=== PATIENT | female | born 2000 | race Hispanic/Latino ===

== ENCOUNTER 2021-12-02 09:18 | Emergency (ER) | payer OTHER ==
--- OUTSIDE RECORDS SUMMARY | 2021-12-02 09:20 | XMS REPORT | Continuity of Care Document ---
:2000 Author Organization [facility] t Address [address] [place] [address] Care Team Providers Name Role Phone Erin JAMES Primary Care Physician Unavailable Erin Oliveros Attending Clinician Erin JAMES Attending Clinician Unavailable Payers Payer Name Policy Type Policy Number Effective Date Expiration Date S ource Problems Condition Condition Condition Status Onset Resolution Last Treating Co mments Source Name Details Category Date Date Treatment Clinician Date Encounter Encounter Disease Active Uni vers for other for other 4-11 ity of general general 00:00: [place] counseling counseling 00 Me dical or advice or advice Bran ch on on contracept contracept ion ion Obesity Obesity Disease Active Univers (BMI (BMI 2-26 ity of 30-39.9) 30-39.9) 00:00: [place] 00 [facility] Vacuum-ass Vacuum-ass Disease Active U nivers isted isted 2-25 ity of vaginal vaginal 00:00: [place] delivery delivery 00 [facility] Normal Normal Disease Active Univers labor labor 2-24 ity of 00:00: [place] 00 [facility] COVID-19 COVID-19 Disease Active Unive rs virus IgG virus IgG 2-23 ity of antibody antibody 00:00: [place] [facility] BMI BMI Disease Active 2020-06 Univers 25.0-25.9, 25.0-25.9, 2-20 it y of adult adult 00:00: [place] 00 [facility] Rubella Rubella Disease Active Overview: Univ ers non-immune non-immune 12-17 Formattin ity of status, status, 00:00: g of this [place] antepartum antepartum 00 note Me dical might be Branch different from the original. Address in PP. Supervisio Supervisio Disease Active U nivers n of high n of high 12-16 ity of risk risk 00:00: [place] 00 Medi mario in third in third Branch trimester trimester Primigravi Primigravi Disease Active U nivers da in da in 12-16 ity of third third 00:00: [place] trimester trimester 00 [facility] Branch Depression Depression Disease Active U nivers , , 12-16 ity of unspecifie [place]specifie [place] depression depression Br anch type type Teen Teen Disease Active Univers emotional emotional 1 ity of problem problem 00:00: [address] Scabies Scabies Disease Active Univers 4-25 ity of 00:00: [address] Allergies, Adverse Reactions, Alerts Allergy Allergy Status Severity Reaction(s) Onset Inactive Treating Comm ents Source Name Type Date Date Clinician NO KNOWN Drug Active Univers ALLERGIE Class ity of S [facility] Social History Social Habit Start Date Stop Date Quantity Comments Source Exposure to Not sure [facility] SARS-CoV-2 [facility] (event) Outlook Alcohol intake 2021-09-15 2021-09-15 Current University of 00:00:00 00:00:00 non-drinker of [facility] [place] alcohol Branch (finding) Tobacco use and 2012-09-20 2012-09-20 Never used Universit y of exposure 00:00:00 00:00:00 [facility] Tobacco Comment 2012-09-20 2012-09-20 Denies smoking Unive rsity of 00:00:00 00:00:00 exposure [facility] Sex Assigned At [birth year] Universit y of 00:00:00 00:00:00 [facility] Smoking Status Start Date Stop Date Source Never smoker [facility] Medications Ordered Filled Start Stop Current Ordering Indication Dosage Frequency Signature Comments Components Source Medication Medication Date Date Medication? Clinician (SIG) Name Name ferrous Yes [id number] 325mg Take 1 Uni vers sulfate 325 2-27 tablet by ity of mg (65 mg 00:00: mouth 2 [place] iron) 00 (two) Medical tablet times Branch daily. ibuprofen Yes [id number] 600mg Take 1 U nivers 600 mg 2-27 tablet by ity of tablet 00:00: mouth [place] 00 every 6 Medical (six) Branch hours as needed (Pain). Take with food or milk. 2021- No [id number] 1{tbl} Take 1 Univers vitamin 2-27 -11 tablet by ity of w/FA tablet 00:00[place] daily. Medical Branch docusate 2021- No [id number] 240mg Take 1 U nivers calcium 240 2-27 -11 capsule by i ty of mg capsule 00:00: 00:00 mouth once [place] 00 :00 daily as Medical needed for Branch Constipati on. Immunizations Ordered Immunization Filled Immunization Date Status Commen ts Source Name Name [facility] 2021-05-12 Completed University of 00:00:00 [facility] TDAP 2013-10-16 Completed University of 00:00:00 [facility] Meningococcal 2013-10-16 Completed University of Polysaccharide 00:00:00 [facility] mario (groups A, C, Y and Branc h W-135) conjugate vaccine (MCV4P) Varicella 2013-10-16 Completed University of (varivax)(chicken 00:00:00 [place] M edical pox) Outlook HEPATITIS A 2005-08-04 Completed University of 00:00:00 [facility] HEPATITIS A 2005-01-15 Completed University of 00:00:00 [facility] DTAP 2004-11-04 Completed University of 00:00:00 [facility] Polio (IPV/OPV) 2004-11-04 Completed Universit y of 00:00:00 [facility] MMR 2004-11-04 Completed University of 00:00:00 [facility] Pneumococcal 7 2002-09-04 Completed University of Conjugate, PCV7 00:00:00 [place] Med ical (Prevnar7) Branch DTAP 2001-12-29 Completed University of 00:00:00 [facility] Hep B, Adol or Pedi 2001-12-29 Completed Unive rsity of Dosage 00:00:00 [facility] HIB 4 Dose Schedule 2001-10-13 Completed Unive rsity of 00:00:00 [facility] MMR 2001-10-13 Completed University of 00:00:00 [facility] Polio (IPV/OPV) 2001-10-13 Completed Universit y of 00:00:00 [facility] Varicella 2001-10-13 Completed University of (varivax)(chicken 00:00:00 [facility] edical pox) Branch DTAP 2001-06-01 Completed University of 00:00:00 [facility] HIB 4 Dose Schedule 2001-06-01 Completed Unive rsity of 00:00:00 [facility] Hep B, Adol or Pedi 2001-06-01 Completed Unive rsity of Dosage 00:00:00 [facility] Pneumococcal 7 2001-06-01 Completed University of Conjugate, PCV7 00:00:00 [facility] ical (Prevnar7) Branch DTAP 2001-03-01 Completed University of 00:00:00 [facility] HIB 4 Dose Schedule 2001-03-01 Completed Unive rsity of 00:00:00 [facility] Pneumococcal 7 2001-03-01 Completed University of Conjugate, PCV7 00:00:00 [place] Med ical (Prevnar7) Branch Polio (IPV/OPV) 2001-03-01 Completed Universit y of 00:00:00 [facility] DTAP 2000 Completed University of 00:00:00 [facility] HIB 4 Dose Schedule 2000 Completed Unive rsity of 00:00:00 [facility] Pneumococcal 7 2000 Completed University of Conjugate, PCV7 00:00:00 [facility] ical (Prevnar7) Branch Polio (IPV/OPV) 2000 Completed Universit y of 00:00:00 [facility] Hep B, Adol or Pedi 2000 Completed Unive rsity of Dosage 00:00:00 [facility] Vital Signs Vital Name Observation Time Observation Value Comments Source Systolic blood 2021-09-15 18:19:00 115 mm[Hg] Univer sity of pressure [facility] Diastolic blood 2021-09-15 18:19:00 73 mm[Hg] Unive rsity of pressure [facility] Heart rate 2021-09-15 18:19:00 70 /min Universi ty of [facility] Body temperature 2021-09-15 18:19:00 35.89 [facility] Respiratory rate 2021-09-15 18:19:00 16 /min [facility] Body height 2021-09-15 18:19:00 162.6 cm [facility] Body weight 2021-09-15 18:19:00 66.543 kg [facility] BMI 2021-09-15 18:19:00 25.18 kg/m2 [facility] Procedures This patient has no known procedures. Encounters Start End Encounter Admission Attending Care Care Encounter Source Date/Time Date/Time Type Type Clinicians Facility Department ID 2021-09-15 2021-09-15 Office ROMAN James [id number] Univers 13:00:00 13:57:48 Visit Vicky Khan BRAN MIXER [id number] ity [facility] [id number] Stewart as MATERNAL [id number] Med ical & CHILD [address] [place] [address] 2021-09-15 2021-09-15 Outpatient R ROMAN JAMES [facility] [id number] Univers 13:00:00 13:57:48 VICKY staton o f [facility] Results This patient has no known results.
[2021-12-02] MEDS ORDERED: LEVALBUTEROL 1.25 MG/3 ML NEB ONE ×2 (10:09→13:18)
[2021-12-02] MEDS ORDERED: HYDROCODONE/CHLORPHEN 5 ML/OSYR ONE (10:09)
[2021-12-02] MEDS ORDERED: NA CHLORIDE 0.9% 1,000 ML ONE (10:09)
[2021-12-02] MEDS ORDERED: IBUPROFEN 400 MG TAB ONE (10:31)
--- NOTE | 2021-12-02 11:11 | RAD REPORT ---
EXAM DESCRIPTION: RAD - Chest Pa And Lat (2 Views) - 12/02/2021 10:53 am CLINICAL HISTORY: COUGH COMPARISON: None TECHNIQUE: Frontal and lateral views of the chest were obtained. FINDINGS: The lungs are underinflated. No consolidations seen. Stranding in the lung bases noted. Ba seline for the patient is unknown. Minimal interstitial lung base infiltrate cannot be excluded. Hilar regions within normal limits. Heart size is normal and central vasculature is within normal l imits. No pleural effusion or pneumothorax seen. No acute bony finding noted. No aortic abnormalit y. IMPRESSION: Baseline study showing prominent interstitial stranding in each base, more so to the rig ht. In the absence of comparison, interstitial infiltrate cannot be excluded. No focal consolidation.
[2021-12-02] MEDS ORDERED: CEFTRIAXONE 1000 MG/VIAL ONE (13:17)
[2021-12-02] MEDS ORDERED: dexAMETHasone 10 MG/ML VIAL ONE (13:17)
--- NOTE | 2021-12-02 14:17 | EDPHYS ---
Physician Documentation [facility] Name: Deisy Jimenez Age: 21 yrs Sex: Female : 2000 Arrival Date: 12/02/2021 Time: 09:21 Bed 23 Private MD: ED Physician Santos Fay HPI: 12/02 09:56 This 21 yrs old Female presents to ER via Ambulatory with complaints of Cough. pm1 09:56 The patient or guardian reports cough. pm1 09:56 Onset: The symptoms/episode began/occurred 5 day(s) ago. Severity of symptoms: in the pm1 emergency department the symptoms are actually worse. Modifying factors: The symptoms are alleviated by nothing, the symptoms are aggravated by nothing. Associated signs and symptoms: Pertinent positives: dizziness, headache, shortness of breath, and wheezing. The patient has not experienced similar symptoms in the past. The patient has not recently seen a physician. Patient's son at home with the same symptoms. 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 - Social history:: Smoking status: Patient denies any tobacco usage or history of. ROS: 09:56 Eyes: Negative for injury, pain, redness, and discharge. pm1 09:56 Cardiovascular: Negative for chest pain, palpitations, and edema. 09:56 Abdomen/GI: Negative for abdominal pain, nausea, vomiting, diarrhea, and constipation, Back: Negative for injury and pain, MS/Extremity: Negative for injury and deformity, Skin: Negative for injury, rash, and discoloration. 09:56 Constitutional: Positive for body aches, fever, Negative for poor PO intake. 09:56 ENT: Positive for rhinorrhea, Negative for ear pain. 09:56 Respiratory: Positive for cough, shortness of breath, wheezing. 09:56 Neuro: Positive for dizziness, headache, Negative for numbness, tingling, weakness. 09:56 All other systems are negative. Exam: 09:56 Constitutional: This is a well developed, well nourished patient who is awake, alert, pm1 and in no acute distress. Head/Face: Normocephalic, atraumatic. 09:56 Back: No spinal tenderness. No costovertebral tenderness. Full range of motion. Skin: Warm, dry with normal turgor. Normal color with no rashes, no lesions, and no evidence of cellulitis. MS/ Extremity: Pulses equal, no cyanosis. Neurovascular intact. Full, normal range of motion. 09:56 Eyes: Exam is negative for acute changes, Extraocular movements: no acute changes, Conjunctiva: no acute changes. 09:56 ENT: Exam is negative for acute changes, Mouth: no acute changes, Lips: normal, moist, Oral mucosa: normal, pink and intact, moist. 09:56 Cardiovascular: Exam negative for acute changes, Rate: tachycardic, Rhythm: regular, Pulses: no pulse deficits are appreciated, Heart sounds: normal. 09:56 Respiratory: the patient does not display signs of respiratory distress, Respirations: normal, Breath sounds: wheezing: that is mild, is heard in the right posterior upper lobe. 09:56 Abdomen/GI: Exam negative for acute changes, Inspection: abdomen appears normal, Palpation: abdomen is soft and non-tender, in all quadrants. 09:56 Neuro: Exam negative for acute changes, Orientation: is normal, Mentation: is normal, Motor: is normal, moves all fours. Vital Signs: 09:30 BP 122 / 78; Pulse 134; Resp 17; Temp 99.3(O); Pulse Ox 95% on R/A; Height 5 ft. 4 in. ss (162.56 cm); Pain 8/10; 10:30 Temp 102.2(O); jl7 10:48 BP 132 / 79; Pulse 119; Resp 19; Pulse Ox 94% ; jl7 12:00 BP 122 / 61; Pulse 111; Resp 15; Pulse Ox 95% ; jl7 13:18 BP 112 / 63; Pulse 104; Resp 15; Temp 99.1(O); Pulse Ox 94% ; jl7 14:30 BP 106 / 65; Pulse 108; Resp 15; Pulse Ox 100% ; jl7 MDM: 09:41 Patient medically screened. pm1 13:04 Data reviewed: vital signs. Data interpreted: Pulse oximetry: on room air is 95 %. pm1 Interpretation: normal. Counseling: I had a detailed discussion with the patient and/or guardian regarding: the historical points, exam findings, and any diagnostic results supporting the discharge/admit diagnosis, lab results, radiology results, the need for outpatient follow up, to return to the emergency department if symptoms worsen or persist or if there are any questions or concerns that arise at home. 12/02 09:56 Order name: Flu; Complete Time: 10:59 pm1 12/02 09:56 Order name: COVID-19 SARS RT PCR (Document "Date of Onset" if Symptomatic); Complete pm1 Time: 13:05 12/02 09:56 Order name: Strep; Complete Time: 10:59 pm1 12/02 09:56 Order name: Chest Pa And Lat (2 Views) XRAY; Complete Time: 11:18 pm1 12/02 10:51 Order name: Throat Culture EDMS 12/02 09:56 Order name: IV Saline Lock; Complete Time: 10:48 pm1 12/02 09:56 Order name: Urine Test (obtain specimen); Complete Time: 10:48 pm1 Administered Medications: 10:10 Drug: Tussionex Pennkinetic ER (chlorpheniramine-hydrocodone) Suspension 5 ml Route: PO;jl7 13:18 Follow up: Response: No adverse reaction jl7 10:15 Drug: NS 0.9% 1000 ml Route: IV; Rate: 1000 ml; Site: right forearm; jl7 10:20 Drug: Xopenex (levalbuterol) 1.25 mg Route: Inhalation; jl7 13:18 Follow up: Response: No adverse reaction jl7 10:30 Drug: Ibuprofen 800 mg Route: PO; jl7 13:18 Follow up: Response: No adverse reaction; Temperature is decreased jl7 13:17 Drug: Xopenex (levalbuterol) 1.25 mg Route: Inhalation; jl7 13:18 Drug: Rocephin (cefTRIAXone) 1 grams Route: IV; Rate: calculated rate; Site: right jl7 forearm; 13:18 Drug: Decadron - Dexamethasone 10 mg Route: IVP; Site: right forearm; jl7 Disposition: 18:02 Co-signature as Attending Physician, Santos Fay MD. rn Disposition Summary: 12/02/21 14:16 Discharge Ordered Location: Home pm1 Problem: new pm1 Symptoms: have improved pm1 Condition: Stable pm1 Diagnosis - Cough pm1 Followup: pm1 - With: Emergency Department - When: As needed - Reason: Worsening of condition Followup: pm1 - With: Private Physician - When: 2 - 3 days - Reason: Recheck today's complaints, Continuance of care, Re-evaluation by your physician Discharge Instructions: - Discharge Summary Sheet pm1 - Cough, Adult pm1 Forms: - Medication Reconciliation Form pm1 - Thank You Letter pm1 - Antibiotic Education pm1 - Prescription Opioid Use pm1 Prescriptions: - Ventolin HFA 90 mcg/actuation Inhalation HFA aerosol inhaler - inhale 2 puff by INHALATION route every 6 hours As needed; 1 Inhaler; Refills: pm1 0, Product Selection Permitted - Zithromax Z-Chente 250 mg Oral Tablet - take 1 tablet by ORAL route as directed for 5 days Day 1 - take two (2) tablets pm1 one time. Day 2, 3, 4 , 5 take one (1) tablet once daily.; 6 tablet; Refills: 0, Product Selection Permitted - Medrol (Chente) 4 mg Oral Tablets, Dose Pack - take 1 tablet by ORAL route as directed - follow package instructions; 1 pm1 packet; Refills: 0, Product Selection Permitted - Guaifenesin AC 10-100 mg/5 mL Oral Liquid - take 10 milliliters by ORAL route every 4 hours As needed; 240 milliliter; pm1 Refills: 0, Product Selection Permitted Signatures: Dispatcher [employer] Santos Omalley MD MD rn Smirch, Shelby, RN RN ss Marinas, Patrick, NP LICENSE REGISTRATION EXAMINER pm1 Jaimie Banks RN RN jl7
--- NOTE | 2021-12-02 14:17 | ER ---
Nurse's Notes [facility] Name: Deisy Jimenez Age: 21 yrs Sex: Female : 2000 Arrival Date: 12/02/2021 Time: 09:21 Bed 23 Private MD: Diagnosis: Cough Presentation: 12/02 09:30 Chief complaint: Patient states: cough, sore throat, shortness of breath and ss intermittent dizziness that began 5 days ago. Pt states that her son has the same symptoms. Coronavirus screen: Client denies travel out of the [place] in the last 14 days. Ebola Screen: Patient denies exposure to infectious person. Patient denies travel to an Ebola-affected area in the 21 days before illness onset. Initial Sepsis Screen: Does the patient meet any 2 criteria? No. Patient's initial sepsis screen is negative. Does the patient have a suspected source of infection? No. Patient's initial sepsis screen is negative. Risk Assessment: Do you want to hurt yourself or someone else? Patient reports no desire to harm self or others. Onset of symptoms was November 27, 2021. 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 - Social history:: Smoking status: Patient denies any tobacco usage or history of. Screenin:00 Abuse screen: Denies threats or abuse. Denies injuries from another. Nutritional jl7 screening: No deficits noted. Tuberculosis screening: No symptoms or risk factors identified. Fall Risk IV access (20 points). Total Sesay Fall Scale indicates No Risk (0-24 pts). Assessment: 10:00 General: Appears in no apparent distress. uncomfortable, Behavior is calm, cooperative, jl7 appropriate for age. Pain: Complains of pain in sore throat Pain currently is 8 out of 10 on a pain scale. Neuro: Level of Consciousness is awake, alert, obeys commands, Oriented to person, place, time, situation. Cardiovascular: Patient's skin is warm and dry. Respiratory: Airway is patent Respiratory effort is even, unlabored, Respiratory pattern is regular, symmetrical. EENT: Throat is clear. Derm: Skin is pink, warm \T\ dry. 11:00 Reassessment: Patient appears in no apparent distress at this time. No changes from jl7 previously documented assessment. Patient and/or family updated on plan of care and expected duration. Pain level reassessed. Patient is alert, oriented x 3, equal unlabored respirations, skin warm/dry/pink. 12:00 Reassessment: Patient appears in no apparent distress at this time. No changes from jl7 previously documented assessment. Patient and/or family updated on plan of care and expected duration. Pain level reassessed. Patient is alert, oriented x 3, equal unlabored respirations, skin warm/dry/pink. 13:00 Reassessment: Patient appears in no apparent distress at this time. Patient and/or jl7 family updated on plan of care and expected duration. Pain level reassessed. Patient is alert, oriented x 3, equal unlabored respirations, skin warm/dry/pink. Patient states symptoms have improved. 14:00 Reassessment: Patient appears in no apparent distress at this time. No changes from jl7 previously documented assessment. Patient and/or family updated on plan of care and expected duration. Pain level reassessed. Patient is alert, oriented x 3, equal unlabored respirations, skin warm/dry/pink. Vital Signs: 09:30 BP 122 / 78; Pulse 134; Resp 17; Temp 99.3(O); Pulse Ox 95% on R/A; Height 5 ft. 4 in. ss (162.56 cm); Pain 8/10; 10:30 Temp 102.2(O); jl7 10:48 BP 132 / 79; Pulse 119; Resp 19; Pulse Ox 94% ; jl7 12:00 BP 122 / 61; Pulse 111; Resp 15; Pulse Ox 95% ; jl7 13:18 BP 112 / 63; Pulse 104; Resp 15; Temp 99.1(O); Pulse Ox 94% ; jl7 14:30 BP 106 / 65; Pulse 108; Resp 15; Pulse Ox 100% ; jl7 ED Course: 09:21 Patient arrived in ED. rg4 09:32 Triage completed. ss 09:32 Arm band placed on right wrist. ss 09:41 Kenneth Rivera, JESSICA is PHCP. pm1 09:41 Santos Fay MD is Attending Physician. pm1 09:58 Jaimie Banks, TEGAN is Primary Nurse. jl7 10:00 Patient has correct armband on for positive identification. Placed in gown. Bed in low jl7 position. Call light in reach. Side rails up X 1. Pulse ox on. NIBP on. Warm blanket given. 10:00 Inserted saline lock: 20 gauge in right forearm, using aseptic technique. jl7 10:52 Chest Pa And Lat (2 Views) XRAY In Process Unspecified. EDMS 14:58 No provider procedures requiring assistance completed. IV discontinued, intact, jl7 bleeding controlled, No redness/swelling at site. Pressure dressing applied. Administered Medications: 10:10 Drug: Tussionex Pennkinetic ER (chlorpheniramine-hydrocodone) Suspension 5 ml Route: PO;jl7 13:18 Follow up: Response: No adverse reaction jl7 10:15 Drug: NS 0.9% 1000 ml Route: IV; Rate: 1000 ml; Site: right forearm; jl7 10:20 Drug: Xopenex (levalbuterol) 1.25 mg Route: Inhalation; jl7 13:18 Follow up: Response: No adverse reaction jl7 10:30 Drug: Ibuprofen 800 mg Route: PO; jl7 13:18 Follow up: Response: No adverse reaction; Temperature is decreased jl7 13:17 Drug: Xopenex (levalbuterol) 1.25 mg Route: Inhalation; jl7 13:18 Drug: Rocephin (cefTRIAXone) 1 grams Route: IV; Rate: calculated rate; Site: right jl7 forearm; 13:18 Drug: Decadron - Dexamethasone 10 mg Route: IVP; Site: right forearm; jl7 Medication: 14:30 VIS not applicable for this client. jl7 Outcome: 14:16 Discharge ordered by . pm1 14:58 Discharged to home ambulatory. jl7 14:58 Condition: stable 14:58 Discharge instructions given to patient, Instructed on discharge instructions, follow up and referral plans. medication usage, Demonstrated understanding of instructions, follow-up care, medications, Prescriptions given X 4. 14:59 Patient left the ED. jl7 Signatures: Dispatcher [employer] EDMS Virginia Harrisonby, RN RN ss Kenneth Rivera, ASSISTANT COUNSEL ASSISTANT COUNSEL pm1 Nola Messer rg4 Jaimie Banks RN RN jl7 Corrections: (The following items were deleted from the chart) 13:18 13:18 Decadron - Dexamethasone 10 mg IVP in right antecubital jl7 jl7
[2021-12-02 15:39] VITALS: TEMP 99.1
[2021-12-02 15:46] VITALS: BP 106/65; O2SAT 100
== END 2021-12-02 14:59 | disposition home or self-care (01) ==
LOC: ER 09:18
DX: R05.9 Cough, unspecified (principal); Z20.822 Contact with and (suspected) exposure to COVID-19
CPT/HCPCS: 87070; 87081; 87804 ×2; 71046; U0003; J1100; J7030

== ENCOUNTER 2022-05-24 12:02 | Emergency (ER) | payer OTHER ==
--- OUTSIDE RECORDS SUMMARY | 2022-05-24 12:06 | XMS REPORT | Continuity of Care Document ---
:2000 Author Organization [facility] t Address [address] [place] [address] Care Team Providers Name Role Phone VICKY ANAND Primary Care Physician Unavailable VICKY ANAND Attending Clinician Unavailable Vicky Oliveros Attending Clinician Moustapha Engle MD Attending Clinician Hossein Jean Baptiste MD Attending Clinician Estephania Teran MD, Leonard Attending Clinician ESPERANZA APPIAH Attending Clinician Unavailable Esperanza Appiah MD Attending Clinician JAMIE CONTE Attending Clinician Unavailable Provider, Roroleonidas Temp Attending Clinician Unavailable Inés Jamie SLOAN Attending Clinician [phone] Ultrasound, Huong Mfm Attending Clinician Unavailable Tami Gee MD Attending Clinician [phone] TAMI GEE Attending Clinician Unavailable Ultrasound, AngRickey Attending Clinician Unavailable Doctor Unassigned, [place] Attending Clinician Unavailable Moustapha Engle MD Admitting Clinician MOUSTAPHA ENGLE Admitting Clinician Unavailable ESPERANZA APPIAH Admitting Clinician Unavailable Esperanza Appiah MD Admitting Clinician Payers Payer Name Policy Type Policy Number Effective Date Expiration Date Pietro luque [facility] [id number] 2021 CHOICE MEDICAID 00:00:00 [facility] [id number] 2021 HEALTH 00:00:00 MEDICAID PENDING PENDING 2020 00:00:00 MEDICAID [facility] [id number] 2017 00:00:00 Problems Condition Condition Condition Status Onset Resolution Last Treating Co mments Source Name Details Category Date Date Treatment Clinician Date Encounter Encounter Disease Active Uni vers for other for other 4-11 ity of general general 00:00: [place] counseling counseling 00 Me dical or advice or advice Bran ch on on contracept contracept ion ion Obesity Obesity Disease Active Univers (BMI (BMI 2-26 ity of 30-39.9) 30-39.9) 00:00: [place] 00 [facility] Vacuum-ass Vacuum-ass Disease Active U nivers isted isted 2-25 ity of vaginal vaginal 00:00: [place] delivery [facility] Normal Normal Disease Active Univers labor labor 2-24 ity of 00:00: [place] 00 [facility] COVID-19 COVID-19 Disease Active Unive rs virus IgG virus IgG 2-23 ity of antibody antibody 00:00: [place] detected detected 00 [facility] BMI BMI Disease Active 2020-06 Univers 25.0-25.9, 25.0-25.9, 2-20 it y of adult adult 00:00: [place] 00 [facility] Rubella Rubella Disease Active Overview: Univ ers non-immune non-immune 12-17 Formattin ity of status, status, 00:00: g of this [place] antepartum antepartum 00 note Me dical might be Branch different from the original. Address in PP. Supervisio Supervisio Disease Active U nivers n of high n of high 7-12 ity of risk risk 00:00: [place] 00 Medi mario in third in third Branch trimester trimester Primigravi Primigravi Disease Active U nivers da in da in 7-12 ity of third third 00:00: [place] trimester trimester 00 Medi mario Branch Depression Depression Disease Active U nivers , , 7-12 ity of unspecifie unspecifie 00:00: [place] Medical depression depression Br anch type type Teen Teen Disease Active Univers emotional emotional - ity of problem problem 00:00: [address] Scabies Scabies Disease Active Univers 4-25 ity of 00:00: [place] [address] Medical Branch Allergies, Adverse Reactions, Alerts Allergy Allergy Status Severity Reaction(s) Onset Inactive Treating Comm ents Source Name Type Date Date Clinician NO KNOWN Drug Active Univers ALLERGIE Class ity of S [facility] Social History Social Habit Start Date Stop Date Quantity Comments Source Exposure to Not sure [facility]-CoV-2 [facility] (event) Branch Alcohol intake 2021-09-15 2021-09-15 Current University of 00:00:00 00:00:00 non-drinker of [facility] alcohol [place] (finding) Tobacco use and 2012-09-20 2012-09-20 Never used Universit y of exposure 00:00:00 00:00:00 [facility] Tobacco Comment 2012-09-20 2012-09-20 Denies smoking Unive rsity of 00:00:00 00:00:00 exposure [facility] Sex Assigned At 2000 2000 Universit y of 00:00:00 00:00:00 [facility] Smoking Status Start Date Stop Date Source Never smoker [facility] Medications Ordered Filled Start Stop Current Ordering Indication Dosage Frequency Signature Comments Components Source Medication Medication Date Date Medication? Clinician (SIG) Name Name ferrous Yes [id number] 325mg Take 1 Uni vers sulfate 325 2-27 tablet by ity of mg (65 mg 00:00: mouth 2 [place] iron) 00 (two) Medical tablet times Branch daily. ibuprofen Yes [id number] 600mg Take 1 U nivers 600 mg 2-27 tablet by ity of tablet 00:00: mouth [place] 00 every 6 Medical (six) Branch hours as needed (Pain). Take with food or milk. 2021- No [id number] 1{tbl} Take 1 Univers vitamin 2-27 04-11 tablet by ity of w/FA tablet 00:00: 00:00 [place]00 daily. Medical Branch docusate 2021- No [id number] 240mg Take 1 U nivMC2 calcium 240 2-27 -11 capsule by i ty of mg capsule 00:00: 00:00 mouth once [place] 00 :00 daily as Medical needed for Branch Constipati on. Immunizations Ordered Immunization Filled Immunization Date Status Commen ts Source Name Name [facility] 2021-05-12 Completed University of 00:00:00 [facility] TDAP 2013-10-16 Completed University of 00:00:00 [facility] Meningococcal 2013-10-16 Completed University of Polysaccharide 00:00:00 [facility] mario (groups A, C, Y and Branc h W-135) conjugate vaccine (MCV4P) Varicella 2013-10-16 Completed University of (varivax)(chicken 00:00:00 [place] M edical pox) Branch HEPATITIS A 2005-08-04 Completed University of 00:00:00 [facility] HEPATITIS A 2005-01-15 Completed University of 00:00:00 [facility] DTAP 2004-11-04 Completed University of 00:00:00 [facility] Polio (IPV/OPV) 2004-11-04 Completed Universit y of 00:00:00 [facility] MMR 2004-11-04 Completed University of 00:00:00 [facility] Pneumococcal 7 2002-09-04 Completed University of Conjugate, PCV7 00:00:00 [place] Med ical (Prevnar7) Branch DTAP 2001-12-29 Completed University of 00:00:00 [facility] Hep B, Adol or Pedi 2001-12-29 Completed Unive rsity of Dosage 00:00:00 [facility] HIB 4 Dose Schedule 2001-10-13 Completed Unive rsity of 00:00:00 [facility] MMR 2001-10-13 Completed University of 00:00:00 [facility] Polio (IPV/OPV) 2001-10-13 Completed Universit y of 00:00:00 [facility] Varicella 2001-10-13 Completed University of (varivax)(chicken 00:00:00 [place] M edical pox) Branch DTAP 2001-06-01 Completed University of 00:00:00 [facility] HIB 4 Dose Schedule 2001-06-01 Completed Unive rsity of 00:00:00 [facility] Hep B, Adol or Pedi 2001-06-01 Completed Unive rsity of Dosage 00:00:00 [facility] Pneumococcal 7 2001-06-01 Completed University of Conjugate, PCV7 00:00:00 [place] Med ical (Prevnar7) Branch DTAP 2001-03-01 Completed University of 00:00:00 [facility] HIB 4 Dose Schedule 2001-03-01 Completed Unive rsity of 00:00:00 [facility] Pneumococcal 7 2001-03-01 Completed University of Conjugate, PCV7 00:00:00 [place] Med ical (Prevnar7) Branch Polio (IPV/OPV) 2001-03-01 Completed Universit y of 00:00:00 [facility] DTAP 2000 Completed University of 00:00:00 [facility] HIB 4 Dose Schedule 2000 Completed Unive rsity of 00:00:00 [facility] Pneumococcal 7 2000 Completed University of Conjugate, PCV7 00:00:00 [place] Med ical (Prevnar7) [place] Polio (IPV/OPV) 2000 Completed Universit y of 00:00:00 [facility] Hep B, Adol or Pedi 2000 Completed Unive rsity of Dosage 00:00:00 [facility] Vital Signs Vital Name Observation Time Observation Value Comments Source Systolic blood 2021-09-15 18:19:00 115 mm[Hg] Univer sity of pressure [facility] Diastolic blood 2021-09-15 18:19:00 73 mm[Hg] Unive rsity of pressure [facility] Heart rate 2021-09-15 18:19:00 70 /min [facility] Body temperature 2021-09-15 18:19:00 35.89 [facility] Respiratory rate 2021-09-15 18:19:00 16 /min [facility] Body height 2021-09-15 18:19:00 162.6 cm [facility] Body weight 2021-09-15 18:19:00 66.543 kg [facility] BMI 2021-09-15 18:19:00 25.18 kg/m2 [facility] Procedures This patient has no known procedures. Encounters Start End Encounter Admission Attending Care Care Encounter Source Date/Time Date/Time Type Type Clinicians Facility Department ID 2022-09-15 2022-09-15 Outpatient Erin ANAND [facility] [id number] Univers 13:15:00 13:15:00 VICKY rodriguez [facility] 2021-09-15 2021-09-15 Outpatient Erin ANAND [facility] [id number] Univers 13:00:00 13:57:48 VICKY rodriguez [facility] 2021-09-15 2021-09-15 [facility] 1.2.840.114 [id number] Univers 13:00:00 13:57:48 Visit Vicky Erin PRODUCT MANAGEMENT ANALYST 350.1.13.10 ity of [facility] 4.2.7.2.686 [place] as MATERNAL [id number] Med ical & CHILD [address] [place] [address] 2021-09-15 2021-09-15 Outpatient Erin ANAND [facility] [id number] Univers 13:00:00 13:57:48 VICKY rodriguez [facility] 2021-08-26 2021-08-26 Outpatient Erin ANAND [facility] [id number] Univers 11:00:00 11:00:00 VICKY rodriguez [facility] 2021-08-08 2021-08-08 Outpatient Erin ANAND [facility] [id number] Univers 10:30:00 10:30:00 VICKY rodriguez [facility] 2021-07-31 2021-08-03 [facility] Moustapha Engle [facility] 1.2.840.114 [id number] Univers 19:18:00 17:15:00 Encounter JHON 350.1.13.10 ity of [place] 4.2.7.2.686 [facility] [phone] [address] 2021-08-01 2021-08-01 Anesthesia Hossein Jean Baptiste [facility] 1.2 .840.114 [id number] Univers 08:22:00 18:09:00 Event Fernie Best 350.1.13.10 ity of [place] 4.2.7.2.686 [facility] [id number] [address] 2021-07-30 2021-07-30 [facility]ine [facility] 1.2.840.114 [id number] Univers 09:00:00 09:15:00 Roshunda R PRODUCT MANAGEMENT ANALYST 350.1.13.10 ity of Visit [facility] 4.2.7.2.686 [place] MATERNAL [phone] [facility] ical & CHILD [address] [place] [address] 2021-07-30 2021-07-30 [facility] [id number] Univers 09:00:00 09:00:00 ROSHUNDA ity o f [facility] 2021-07-30 2021-07-30 [facility] MOI [id number] Univers 09:00:00 09:00:00 ROSHUNDA ity o [facility] 2021-07-27 2021-07-27 [facility] [id number] Univers 20:57:00 22:17:00 ESPERANZA stat[place] of [facility] 2021-07-27 2021-07-27 [facility] 1.2.840.114 [id number] Univers 20:57:00 22:17:00 Encounter Esperanza Franco OELRICHS 350.1.13.10 ity [facility] 4.2.7.2.686 [place] [id number] [address] 2021-07-23 2021-07-23 Outpatient R [facility] [id number] Univers 13:30:00 13:30:00 ity of [facility] 2021-07-22 2021-07-22 Outpatient [facility] [id number] Univers 12:45:00 13:23:40 ROSHUNDA ity o [facility] 2021-07-22 2021-07-22 [facility]ine [facility] 1.2.840.114 [id number] Univers 12:45:00 13:23:40 Roshunda R PRODUCT MANAGEMENT ANALYST 350.1.13.10 ity of Visit [facility] 4.2.7.2.686 [place] MATERNAL [id number] [facility] & CHILD [address] [place] [address] 2021-07-22 2021-07-22 Outpatient [facility] [id number] Univers 12:45:00 12:45:00 BANNDA brionna o [facility] 2021-07-15 2021-07-15 Outpatient Erin ANAND [facility] [id number] Univers 13:00:00 13:00:00 BANNDA brionna o [facility] 2021-07-14 2021-07-14 Outpatient Erin ANAND [facility] [id number] Univers 13:15:00 13:15:00 BANNDRayo stat[place] o [facility] 2021-07-09 2021-07-09 Telephone [facility] [id number] Univers 00:00:00 00:00:00 Roshunda R PRODUCT MANAGEMENT ANALYST 350.1.13.10 ity of REGIONAL 4.2.7.2.686 [place] MATERNAL [id number] [facility] & CHILD [address] [place] [address] 2021-07-08 2021-07-08 Outpatient Erin ANAND [facility] [id number] Univers 12:45:00 13:40:40 BANNDA brionna o [facility] 2021-07-08 2021-07-08 Outpatient [facility] [id number] Univers 12:45:00 13:40:40 BANNDA brionna o [facility] 2021-07-08 2021-07-08 [facility]ine [facility] 1.2.840.114 [id number] Univers 12:45:00 13:40:40 Roshunda R PRODUCT MANAGEMENT ANALYST 350.1.13.10 ity of Visit REGIONAL 4.2.7.2.686 [place] MATERNAL [id number] [facility] & CHILD [address] [place] [address] 2021-06-24 2021-06-24 Outpatient [facility] [id number] Univers 15:15:00 16:06:46 ROSHUNDA ity o [facility] 2021-06-24 2021-06-24 [facility]ine [facility] 1.2.840.114 [id number] Univers 15:15:00 16:06:46 Roshunda R PRODUCT MANAGEMENT ANALYST 350.1.13.10 ity of Visit REGIONAL 4.2.7.2.686 [place] MATERNAL [id number] Med ical & CHILD [address] [place] [address] 2021-06-09 2021-06-09 Outpatient Erin ANAND [facility] [id number] Univers 08:15:00 08:41:14 VICKY [place] michael [facility] 2021-05-26 2021-05-26 Outpatient Erin ANAND [facility] [id number] Univers 09:30:00 10:08:32 VICKY [place] o [facility] 2021-05-26 2021-05-26 [facility]ine [facility] 1.2.840.114 [id number] Univers 09:30:00 10:08:32 Vicky Khan PRODUCT MANAGEMENT ANALYST 350.1.13.10 ity of Visit REGIONAL 4.2.7.2.686 [place] MATERNAL [id number] [facility] & CHILD [address] [place] [address] 2021-05-12 2021-05-12 Outpatient [facility] [id number] Univers 09:00:00 09:36:19 JAMIE dorsey [facility] 2021-05-12 2021-05-12 Routine Provider, Cait [facility] 1 .2.840.114 [id number] Univers 08:53:01 09:36:19 Jamie Conte PRODUCT MANAGEMENT ANALYST 350.1.13 .10 ity of Visit REGIONAL 4.2.7.2.686 [place] MATERNAL [id number] [facility] & CHILD [address] [place] [address] 2021-04-16 2021-04-16 Telephone [facility] 1.2.840.114 [id number] Univers 00:00:00 00:00:00 Nellieridariusz Dorsey PRODUCT MANAGEMENT ANALYST 350.1.13.10 ity of REGIONAL 4.2.7.2.686 [place] MATERNAL [id number] [facility] & CHILD [address] [place] [address] 2021-04-14 2021-04-14 Outpatient [facility] [id number] Univers 09:00:00 09:25:37 JAMIE dorsey [facility] 2021-04-14 2021-04-14 Routine Provider, Cait Shankar [facility] 1 .2.840.114 [id number] Univers 08:59:03 09:25:37 Jamie Conte O PRODUCT MANAGEMENT ANALYST 350.1.13 .10 ity of Visit [facility] 4.2.7.2.686 [place] MATERNAL [id number] [facility] & CHILD [address] [place] [address] 2021-04-03 2021-04-03 Train Dispatcher Ultrasound, Adc [facility] 1.2 .840.114 [id number] Univers 13:05:18 14:05:18 Visit Tami Geepalmacecile OELRICHS 350.1 .13.10 ity of [facility] 4.2.7.2.686 [place] [id number] [address] 2021-04-03 2021-04-03 Outpatient P MARLEN [facility] [id number] Univers 13:00:00 13:00:00 CHASEY ity [facility] 2021-03-20 2021-03-20 Outpatient P [facility] [id number] Univers 08:00:00 08:00:00 ity [facility] 2021-03-12 2021-03-12 Routine Provider, Cait Shankar [facility] 1 .2.840.114 [id number] Univers 09:57:49 10:51:56 Jamie Conte PRODUCT MANAGEMENT ANALYST 350.1.13 .10 ity of Visit REGIONAL 4.2.7.2.686 [place] MATERNAL [id number] [facility] & CHILD [address] [place] [address] 2021-03-12 2021-03-12 Outpatient R [facility] [id number] Univers 10:00:00 10:00:00 ity [facility] 2021-02-11 2021-02-11 Routine Kika [facility] 1.2.840.114 [id number] Univers 07:55:38 08:10:38 Roshunda R PRODUCT MANAGEMENT ANALYST 350.1.13.10 ity of Visit [facility] 4.2.7.2.686 [place] as MATERNAL [id number] [facility] & CHILD [address] [place] [address] 2021-02-11 2021-02-11 Outpatient R KIKA [facility] [id number] Univers 08:00:00 08:00:00 ROSHUNDA ity o f [facility] 2021-01-28 2021-01-28 Train Dispatcher Ultrasound, [facility] 1.2 .840.114 [id number] Univers 15:35:10 16:05:10 Visit MichaelTami brizuela Oef PRODUCT MANAGEMENT ANALYST 350.1. 13.10 ity of [place] 4.2.7.2.686 [place] MATERNAL [id number] Med ical & CHILD [address] [facility] 2021-01-28 2021-01-28 Train Dispatcher Ultrasound, [facility] 1.2 .840.114 [id number] Univers 15:35:10 16:05:10 Visit Marlen Tami Ofe PRODUCT MANAGEMENT ANALYST 350.1. 13.10 ity of [place] 4.2.7.2.686 [place] MATERNAL [id number] Med ical & CHILD 369 [facility] 2021-01-28 2021-01-28 Outpatient P [facility] [id number] Univers 15:45:00 15:45:00 ity of [facility] 2021-01-28 2021-01-28 Outpatient P [facility] [id number] Univers 14:00:00 14:00:00 ity of [facility] 2021-01-28 2021-01-28 Abstract KikaWAUCONDA, UTRAVINDER 1.2.840.114 [id number] Univers 00:00:00 00:00:00 Sadea R PRODUCT MANAGEMENT ANALYST 350.1.13.10 ity of [place]ION[place] 4.2.7.2.686 [place] MATERNAL [id number] Med ical & CHILD [address] [place] [address] 2021-01-28 2021-01-28 Abstract Kika SCRAVINDER 1.2.840.114 [id number] Univers 00:00:00 00:00:00 Rosperlanda R PRODUCT MANAGEMENT ANALYST 350.1.13.10 ity of REGIONAL 4.2.7.2.686 [place] as MATERNAL [id number] Med ical & CHILD 107 [facility] 2021-01-13 2021-01-13 Routine [facility] 1.2.840.114 [id number] Univers 08:30:31 08:58:34 Roshunda R PRODUCT MANAGEMENT ANALYST 350.1.13.10 ity of Visit [facility] 4.2.7.2.686 [place] as MATERNAL [id number] [facility] & [address] 2021-01-13 2021-01-13 Out[facility] [id number] Univers 08:45:00 08:45:00 ROSHUNDA ity o f [facility] 2020-12-16 2020-12-16 Initial [facility] 1.2.840.114 [id number] Univers 08:43:48 10:22:01 Roshunda R PRODUCT MANAGEMENT ANALYST 350.1.13.10 ity of Visit [facility] 4.2.7.2.686 [place] as MATERNAL [id number] [facility] & [address] 2020-12-16 2020-12-16 Outpatient R [facility] [id number] Univers 08:30:00 08:30:00 ity of [facility] 2020-12-16 2020-12-16 Orders Doctor EDDI 1.2.840.114 [id number] Univers 00:00:00 00:00:00 Only Unassigned, ARLEEN 350.1.13.10 ity of [place] [facility] 4.2.7.2.686 [place] as [id number] [place] [address] Branch Results This patient has no known results.
[2022-05-24 12:21] LABS: Urine Blood Negative (Negative); Urine Glucose Negative (Negative); Urine Protein Negative (Negative); Urine Specific Gravity >=1.030 (1.005-1.030); Urine pH 6.5 (5.0-7.0)
[2022-05-24 12:35] LABS: Absolute Lymphocytes (CBC) 1.6 K/uL (0.7-4.9); Hematocrit 42.2 % (36.0-45.0); MCV 94.6 fL (80-100); MPV 7.9 fL (7.6-11.3); RBC Red Blood Cell Count 4.46 M/uL (3.86-4.86)
[2022-05-24 13:00] LABS: Urine Bacteria None Seen /HPF (<20); Urine Mucus 1+ /HPF (None Seen); Urine RBC <5 /HPF (None Seen)
[2022-05-24] MEDS ORDERED: KETOROLAC 30 MG/ML INJ ONE (13:01)
[2022-05-24 13:08] LABS: Albumin 4.5 g/dL (3.4-5.0); Bilirubin Total 0.5 mg/dL (0.2-1.0); Potassium 3.6 mmol/L (3.5-5.1); Protein, Total 8.6 g/dL (6.4-8.2)
--- NOTE | 2022-05-24 13:14 | RAD REPORT ---
EXAM DESCRIPTION: CT - Abdomen Pelvis Wo Contrast - 05/24/2022 1:01 pm CLINICAL HISTORY: flank pain Left-side COMPARISON: No comparisons TECHNIQUE: Axial [address] imaging of the abdomen and pelvis was performed without IV contrast. No IV contrast was given because of allergy, abnormal renal function, patient refusal or physician re quest. No oral contrast administered. All CT scans are performed using dose optimization technique as appropriate and may include automated exposure control or mA/KV adjustment according to patient size. FINDINGS: No suspicious findings in the lung bases. The liver, spleen and pancreas show no suspicious findings on non-contrast imaging. Gallbladder and b iliary tree are also without suspicious finding. Gallstones can be occult on CT imaging. Moderate severity left-sided hydronephrosis is present down to the UVJ where there is a 7 mm obstruct ing calculus. Left kidney is edematous with stranding in the perinephric fat. No right-sided hydronep hrosis. Patient has bilateral nonobstructing calyx calculi 2-5 mm in size. No significant adrenal fi nding. Isodense renal masses and pyelonephritis cannot be excluded in the absence of IV contrast. Uri nary bladder is fully contracted limiting assessment. Uterus and ovaries show no suspicious findings. No dilated bowel loops or bowel wall thickening. Trace amount of fluid collects in dependent portion the pelvis. This is within physiologic limits. No free air or pneumatosis. No mass or bulky lymphade nopathy. Very small fat only umbilical hernia is present. No suspicious bony findings. IMPRESSION: Moderate severity left-sided hydronephrosis secondary to a 7 mm obstructing calculus at the UVJ. Bilateral nonobstructing 2-5 mm calyx calculi. Full assessment is limited is the absence of IV contrast.
--- NOTE | 2022-05-24 13:54 | EDPHYS ---
Physician Documentation [facility] Name: Deisy Jimenez Age: 21 yrs Sex: Female : 2000 Arrival Date: 05/24/2022 Time: 12:04 Bed 8 Private MD: ED Physician David Arnold HPI: 05/24 13:11 This 21 yrs old Female presents to ER via Ambulatory with complaints of Low sp3 Back Pain. 13:11 21-year old female with no significant past medical history presents with left-sided sp3 flank pain radiating around to the anterior left lower abdomen for 1 day. Symptoms started all of a sudden yesterday p.m. while patient was resting. 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 Pain is described as sharp and waxing and waning in nature.. 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 - Social history:: Smoking status: Reported history of juuling and/or vaping. ROS: 13:15 Constitutional: Negative for fever, chills, and weight loss, Eyes: Negative for injury, sp3 pain, redness, and discharge, ENT: Negative for injury, pain, and discharge, Neck: Negative for injury, pain, and swelling, Cardiovascular: Negative for chest pain, palpitations, and edema, Respiratory: Negative for shortness of breath, cough, wheezing, and pleuritic chest pain, : Negative for injury, bleeding, discharge, and swelling, MS/Extremity: Negative for injury and deformity, Skin: Negative for injury, rash, and discoloration, Neuro: Negative for headache, weakness, numbness, tingling, and seizure, Psych: Negative for depression, anxiety, suicide ideation, homicidal ideation, and hallucinations, Allergy/Immunology: Negative for hives, rash, and allergies, Endocrine: Negative for neck swelling, polydipsia, polyuria, polyphagia, and marked weight changes, Hematologic/Lymphatic: Negative for swollen nodes, abnormal bleeding, and unusual bruising. 13:15 All other systems are negative. Exam: 13:16 Constitutional: This is a well developed, well nourished patient who is awake, alert, sp3 and in no acute distress. Head/Face: Normocephalic, atraumatic. Eyes: Pupils equal round and reactive to light, extra-ocular motions intact. Lids and lashes normal. Conjunctiva and sclera are non-icteric and not injected. Cornea within normal limits. Periorbital areas with no swelling, redness, or edema. ENT: Nares patent. No nasal discharge, no septal abnormalities noted. External auditory canals are clear. Oropharynx with no redness, swelling, or masses, exudates, or evidence of obstruction, uvula midline. Mucous membranes moist. Neck: Trachea midline, no thyromegaly or masses palpated, and no cervical lymphadenopathy. Supple, full range of motion without nuchal rigidity, or vertebral point tenderness. No Meningismus. Chest/axilla: Normal chest wall appearance and motion. Nontender with no deformity. No lesions are appreciated. Cardiovascular: Regular rate and rhythm with a normal S1 and S2. No gallops, murmurs, or rubs. Normal PMI, no JVD. No pulse deficits. Respiratory: Lungs have equal breath sounds bilaterally, clear to auscultation and percussion. No rales, rhonchi or wheezes noted. No increased work of breathing, no retractions or nasal flaring. Abdomen/GI: Soft, non-tender, with normal bowel sounds. No distension or tympany. No guarding or rebound. No evidence of tenderness throughout. Skin: Warm, dry with normal turgor. Normal color with no rashes, no lesions, and no evidence of cellulitis. MS/ Extremity: Pulses equal, no cyanosis. Neurovascular intact. Full, normal range of motion. Psych: Awake, alert, with orientation to person, place and time. Behavior, mood, and affect are within normal limits. 13:16 Musculoskeletal/extremity: Patient has pain to palpation on the left lower region of the musculature of the back. Positive CVA tenderness and mild abdominal tenderness left lower quadrant.. Vital Signs: 12:22 BP 112 / 86; Pulse 69; Resp 14; Temp 97.9(O); Pulse Ox 100% on R/A; Height 5 ft. 4 in. ss (162.56 cm); Pain 9/10; 13:10 BP 107 / 89; Pulse 62; Resp 18; Pulse Ox 100% on R/A; ph MDM: 12:21 Patient medically screened. sp3 13:18 Data reviewed: vital signs, nurses notes. ED course: 21-year-old female with left-sided sp3 flank pain. Differential diagnosis includes UTI, pyelonephritis, kidney stone, functional abdominal pain, MSK pain. 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 No critical illness including sepsis or shock are present. Disposition based on work-up which will include CT scan of the abdomen and pelvis, laboratory values, and urine analysis. Ketorolac IV for pain control as needed. Disposition pending.. 13:50 ED course: CT demonstrates 7 mm kidney stone in the left UVJ junction. Creatinine on sp3 the laboratory values are normal. Urinalysis is normal and patient is not . Will discharge patient home with general precautions, urology follow-up, urine strainer, and diclofenac p.o. for symptomatic pain control. I have educated patient on signs symptoms look for for return and advised her on the necessity of proper follow-up.. 05/24 12:21 Order name: Urine Dipstick-Ancillary; Complete Time: 13:34 EDMS 05/24 12:22 Order name: CBC with Diff; Complete Time: 13:34 sp3 05/24 12:22 Order name: CMP; Complete Time: 13:34 sp3 05/24 12:22 Order name: Lipase; Complete Time: 13:34 sp3 05/24 12:22 Order name: Urine Microscopic Only; Complete Time: 13:34 sp3 05/24 12:29 Order name: Urine --Ancillary (enter results); Complete Time: 13:34 eb 05/24 12:22 Order name: Urine Test (obtain specimen); Complete Time: 12:27 sp3 05/24 12:22 Order name: CT Abd/Pelvis - Without Contrast; Complete Time: 13:34 sp3 05/24 12:22 Order name: IV Saline Lock; Complete Time: 12:27 sp3 05/24 12:22 Order name: Labs collected and sent; Complete Time: 12:27 sp3 Administered Medications: 13:09 Drug: Ketorolac 30 mg Route: IVP; Site: right antecubital; ph Disposition Summary: 05/24/22 13:53 Discharge Ordered Location: Home sp3 Condition: Stable sp3 Diagnosis - Calculus of ureter sp3 Followup: sp3 - With: Jovan Guerrero MD - When: Upon discharge from the Emergency Department - Reason: Recheck today's complaints Discharge Instructions: - Discharge Summary Sheet sp3 - Kidney Stones sp3 - Dietary Guidelines to Help Prevent Kidney Stones sp3 Forms: - Medication Reconciliation Form sp3 - Thank You Letter sp3 - Antibiotic Education sp3 - Prescription Opioid Use sp3 Prescriptions: - Diclofenac Sodium 75 mg Oral Tablet Sustained Release - take 1 tablet by ORAL route 2 times per day; 30 tablet; Refills: 0, Product sp3 Selection Permitted Signatures: Dispatcher [employer] Opal Spring RN RN ss Hall, Patricia, RN RN ph David Arnold MD MD sp3
--- NOTE | 2022-05-24 13:54 | ER ---
Nurse's Notes [facility] Name: Deisy Jimenez Age: 21 yrs Sex: Female : 2000 Arrival Date: 05/24/2022 Time: 12:04 Bed 8 Private MD: Diagnosis: Calculus of ureter Presentation: 05/24 12:10 Chief complaint: Patient states: L flank pain that began yesterday evening at 7pm. ss Coronavirus screen: Client denies travel out of the [place] in the last 14 days. Ebola Screen: Patient denies exposure to infectious person. Patient denies travel to an Ebola-affected area in the 21 days before illness onset. Initial Sepsis Screen: Does the patient meet any 2 criteria? No. Patient's initial sepsis screen is negative. Does the patient have a suspected source of infection? No. Patient's initial sepsis screen is negative. Risk Assessment: Do you want to hurt yourself or someone else? Patient reports no desire to harm self or others. Onset of symptoms was May 23, 2022. 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 - Social history:: Smoking status: Reported history of juuling and/or vaping. Screenin:21 [facility] ED Fall Risk Assessment (Adult) History of falling in the last 3 months, ph including since admission No falls in past 3 months (0 pts) Confusion or Disorientation No (0 pts) Intoxicated or Sedated No (0 pts) Impaired Gait No (0 pts) Mobility Assist Device Used No (0 pt) Altered Elimination No (0 pt) Score/Fall Risk Level 0 - 2 = Low Risk Maintained a safe environment. Abuse screen: Denies threats or abuse. Denies injuries from another. Nutritional screening: No deficits noted. Tuberculosis screening: No symptoms or risk factors identified. Assessment: 13:10 General: Appears in no apparent distress. comfortable, Behavior is calm, cooperative, ph appropriate for age, Denies fever. Pain: Complains of pain in left low back. Neuro: Level of Consciousness is awake, alert, obeys commands, Oriented to person, place, time, situation. GI: Reports lower abdominal pain, cramping. : Denies burning with urination, urinary frequency. Derm: Skin is intact, is healthy with good turgor, Skin is pink, warm \T\ dry. Vital Signs: 12:22 BP 112 / 86; Pulse 69; Resp 14; Temp 97.9(O); Pulse Ox 100% on R/A; Height 5 ft. 4 in. ss (162.56 cm); Pain 9/10; 13:10 BP 107 / 89; Pulse 62; Resp 18; Pulse Ox 100% on R/A; ph ED Course: 12:04 Patient arrived in ED. rg4 12:06 David Arnold MD is Attending Physician. sp3 12:06 Betty Darnell RN is Primary Nurse. ph 12:11 Triage completed. ss 12:11 Arm band placed on right wrist. ss 12:22 Patient has correct armband on for positive identification. Bed in low position. Call ph light in reach. Side rails up X 1. Pulse ox on. NIBP on. 12:27 Initial lab(s) drawn, by ED staff, sent to lab. Urine collected:. Inserted saline lock: ph 20 gauge in right antecubital area, using aseptic technique. Blood collected. 13:03 CT Abd/Pelvis - Without Contrast In Process Unspecified. EDMS 13:53 Jovan Geurrero MD is Referral Physician. sp3 Administered Medications: 13:09 Drug: Ketorolac 30 mg Route: IVP; Site: right antecubital; ph Medication: 12:28 VIS not applicable for this client. ph Outcome: 13:53 Discharge ordered by . sp3 14:24 Patient left the ED. kj1 Signatures: Dispatcher [employer] EDMS Opal Harrison RN RN ss Hall, Patricia, RN RN ph Nola Messer rg4 Haven Allen kj1 David Arnold MD MD sp3
[2022-05-24 14:47] VITALS: TEMP 97.9; O2SAT 100
[2022-05-24 14:49] VITALS: BP 107/89
== END 2022-05-24 14:24 | disposition home or self-care (01) ==
LOC: ER 12:02
DX: N20.1 Calculus of ureter (principal)
CPT/HCPCS: 36415; 74176; 80053; 81003; 81015; 81025; 83690; 85025; 96374; 99284

== ENCOUNTER 2022-05-28 17:39 | Emergency (ER) | payer OTHER ==
--- OUTSIDE RECORDS SUMMARY | 2022-05-28 17:45 | XMS REPORT | Continuity of Care Document ---
:2000 Author Organization [facility] t Address [address] [place] [address] Care Team Providers Name Role Phone VICKY [...] Clinician Unavailable Inés Jamie SLOAN Attending Clinician Ultrasound, Huong Mfm Attending Clinician Unavailable Tami Gee MD Attending Clinician [phone] TAMI GEE Attending Clinician Unavailable Ultrasound, AngRickey Attending Clinician Unavailable Doctor Unassigned, [place] Attending Clinician Unavailable Moustapha Engle MD Admitting Clinician MOUSTAPHA ENGLE Admitting Clinician Unavailable ESPERANZA APPIAH Admitting Clinician Unavailable Esperanza Appiah MD Admitting Clinician Payers Payer Name Policy Type Policy Number Effective Date Expiration Date Pietro luque FORMERLY [facility] [id number] 2021 CHOICE MEDICAID 00:00:00 [facility] [id number] 2021 HEALTH 00:00:00 MEDICAID PENDING PENDING 2020 00:00:00 MEDICAID [facility] [id number] 2017 00:00:00 Problems Condition Condition Condition Status [...] ity of 30-39.9) 30-39.9) 00:00: [place] 00 [facility] Vacuum-ass Vacuum-ass Disease Active U nivers isted isted 2-25 ity of vaginal vaginal 00:00: [place] delivery delivery 00 [facility] Normal Normal Disease Active Univers labor labor 2-24 ity of 00:00: [place] 00 [facility] COVID-19 COVID-19 Disease Active Unive rs virus IgG virus IgG 2-23 ity of antibody antibody 00:00: [place] detected detected 00 [facility] BMI BMI Disease Active 2020-06 Univers 25.0-25.9, 25.0-25.9, 2-20 it y of adult adult 00:00: [place] 00 [facility] Rubella Rubella Disease Active Overview: Univ ers non-immune non-immune 12-17 Formattin ity of status, status, 00:00: g of this [place] antepartum antepartum 00 note Me dical might [...] emotional - ity of problem problem 00:00: [address] Scabies Scabies Disease Active Univers 4-25 ity of 00:00: [place] [address] Medical Branch Allergies, Adverse Reactions, Alerts Allergy Allergy Status Severity Reaction(s) Onset Inactive Treating Comm ents Source Name Type Date Date Clinician NO KNOWN Drug Active Univers ALLERGIE Class ity of S [facility] Social History Social Habit Start Date Stop Date Quantity Comments Source Exposure to Not sure [facility]-CoV-2 [facility] (event) Branch Alcohol intake 2021-09-15 2021-09-15 Current University of 00:00:00 00:00:00 non-drinker of [facility] alcohol [place] (finding) Tobacco use and 2012-09-20 2012-09-20 Never used Universit y of exposure 00:00:00 00:00:00 [facility] Tobacco Comment 2012-09-20 2012-09-20 Denies smoking Unive rsity of 00:00:00 00:00:00 exposure [facility] Sex Assigned At [birth year] Universit y of 00:00:00 00:00:00 [facility] Smoking Status Start Date Stop Date Source Never smoker [facility] Medications Ordered Filled Start Stop Current Ordering Indication Dosage Frequency Signature Comments Components Source Medication Medication Date Date Medication? Clinician (SIG) Name Name ferrous Yes [id number] 325mg Take 1 Uni vers sulfate 325 2-27 tablet by ity of mg (65 mg 00:00: mouth 2 [place] iron) 00 (two) Medical tablet times Branch daily. ibuprofen Yes [id number] 600mg Take 1 U nivers 600 mg 2-27 tablet by ity of tablet 00:00: mouth [place] 00 every 6 Medical (six) Branch hours as needed (Pain). Take with food or milk. 2021- No [id number] 1{tbl} Take 1 Univers vitamin 2-27 04-11 tablet by ity of w/FA tablet 00:00: 00:00 [place]00 daily. Medical Branch docusate 2021- No [id number] 240mg Take 1 U nivImmediately calcium 240 2-27 -11 capsule by i ty of mg capsule 00:00: 00:00 mouth once [place] 00 :00 daily as Medical needed for Branch Constipati on. Immunizations Ordered Immunization Filled Immunization Date Status Commen ts Source Name Name [facility] 2021-05-12 Completed University of 00:00:00 [facility] TDAP 2013-10-16 Completed University of 00:00:00 [facility] Meningococcal 2013-10-16 Completed University of Polysaccharide 00:00:00 [facility] mario (groups A, C, Y and Branc h W-135) conjugate vaccine (MCV4P) Varicella 2013-10-16 Completed University of (varivax)(chicken 00:00:00 [place] M edical pox) Branch HEPATITIS A 2005-08-04 Completed University of 00:00:00 [facility] HEPATITIS A 2005-01-15 Completed University of 00:00:00 [facility] DTAP 2004-11-04 Completed University of 00:00:00 [facility] Polio (IPV/OPV) 2004-11-04 Completed Universit y of 00:00:00 [facility] MMR 2004-11-04 Completed University of 00:00:00 [facility] Pneumococcal 7 2002-09-04 Completed University of Conjugate, PCV7 00:00:00 [place] Med ical (Prevnar7) Branch DTAP 2001-12-29 Completed University of 00:00:00 [facility] Hep B, Adol or Pedi 2001-12-29 Completed Unive rsity of Dosage 00:00:00 [facility] HIB 4 Dose Schedule 2001-10-13 Completed Unive rsity of 00:00:00 [facility] MMR 2001-10-13 Completed University of 00:00:00 [facility] Polio (IPV/OPV) 2001-10-13 Completed Universit y of 00:00:00 [facility] Varicella 2001-10-13 Completed University of (varivax)(chicken 00:00:00 [place] M edical pox) Branch DTAP 2001-06-01 Completed University of 00:00:00 [facility] HIB 4 Dose Schedule 2001-06-01 Completed Unive rsity of 00:00:00 [facility] Hep B, Adol or Pedi 2001-06-01 Completed Unive rsity of Dosage 00:00:00 [facility] Pneumococcal 7 2001-06-01 Completed University of Conjugate, PCV7 00:00:00 [place] Med ical (Prevnar7) Branch DTAP 2001-03-01 Completed University of 00:00:00 [facility] HIB 4 Dose Schedule 2001-03-01 Completed Unive rsity of 00:00:00 [facility] Pneumococcal 7 2001-03-01 Completed University of Conjugate, PCV7 00:00:00 [place] Med ical (Prevnar7) Branch Polio (IPV/OPV) 2001-03-01 Completed Universit y of 00:00:00 [facility] DTAP 2000 Completed University of 00:00:00 [facility] HIB 4 Dose Schedule 2000 Completed Unive rsity of 00:00:00 [facility] Pneumococcal 7 2000 Completed University of Conjugate, PCV7 00:00:00 [place] Med ical (Prevnar7) [place] Polio (IPV/OPV) 2000 Completed Universit y of 00:00:00 [facility] Hep B, Adol or Pedi 2000 Completed Unive rsity of Dosage 00:00:00 [facility] Vital Signs Vital Name Observation Time Observation Value Comments Source Systolic blood 2021-09-15 18:19:00 115 mm[Hg] Univer sity of pressure [facility] Diastolic blood 2021-09-15 18:19:00 73 mm[Hg] Unive rsity of pressure [facility] Heart rate 2021-09-15 18:19:00 70 /min [facility] Body temperature 2021-09-15 18:19:00 35.89 Ernestine [facility] Respiratory rate 2021-09-15 18:19:00 16 /min [facility] Body height 2021-09-15 18:19:00 162.6 cm [facility] Body weight 2021-09-15 18:19:00 66.543 kg [facility] BMI 2021-09-15 18:19:00 25.18 kg/m2 [facility] Procedures This patient has no known procedures. Encounters Start End Encounter Admission Attending Care Care Encounter Source Date/Time Date/Time Type Type Clinicians Facility Department ID 2022-09-15 2022-09-15 Outpatient Erin ANAND [facility] [id number] Univers 13:15:00 13:15:00 VICKY rodriguez [facility] 2021-09-15 2021-09-15 Outpatient Erin ANAND [facility] [id number] Univers 13:00:00 13:57:48 VICKY rodriguez [facility] 2021-09-15 2021-09-15 Office [facility] 1.2.840.114 [id number] Univers 13:00:00 13:57:48 Visit Vicky Erin AIRPLANE DISPATCH CLERK 350.1.13.10 ity of [facility] 4.2.7.2.686 [place] as MATERNAL [id number] Med ical & CHILD [address] [place] [address] 2021-09-15 2021-09-15 Outpatient Erin ANAND [facility] [id number] Univers 13:00:00 13:57:48 VICKY rodriguez [facility] 2021-08-26 2021-08-26 Outpatient Erin ANAND [facility] [id number] Univers 11:00:00 11:00:00 VICKY rodriguez [facility] 2021-08-08 2021-08-08 Outpatient Erin ANAND [facility] [id number] Univers 10:30:00 10:30:00 VICKY rodriguez [facility] 2021-07-31 2021-08-03 [facility] Moustapha Engle [facility] 1.2.840.114 [id number] Univers 19:18:00 17:15:00 Encounter JHON 350.1.13.10 ity of [place] 4.2.7.2.686 [facility] [id number] [address] 2021-08-01 2021-08-01 Anesthesia Hossein Jean Baptiste [facility] 1.2 .840.114 [id number] Univers 08:22:00 18:09:00 Event Fernie Best 350.1.13.10 ity of [place] 4.2.7.2.686 [facility] [id number] [address] 2021-07-30 2021-07-30 Routine [facility] 1.2.840.114 [id number] Univers 09:00:00 09:15:00 Roshunda R AIRPLANE DISPATCH CLERK 350.1.13.10 ity of Visit [facility] 4.2.7.2.686 [place] MATERNAL [id number] [facility] ical & CHILD [address] [place] [address] 2021-07-30 2021-07-30 [facility] [id number] Univers 09:00:00 09:00:00 ROSHUNDA ity o f [facility] 2021-07-30 2021-07-30 [facility] [id number] Univers 09:00:00 09:00:00 ROSHUNDA ity o [facility] 2021-07-27 2021-07-27 [facility] [id number] Univers 20:57:00 22:17:00 ESPERANZA [place] of [facility] 2021-07-27 2021-07-27 [facility] 1.2.840.114 [id number] Univers 20:57:00 22:17:00 Encounter Esperanza Franco [address] 350.1.13.10 ity [facility] 4.2.7.2.686 [place] [id number] [address] 2021-07-23 2021-07-23 Outpatient R [facility] [id number] Univers 13:30:00 13:30:00 ity of [facility] 2021-07-22 2021-07-22 [facility]patient [facility] [id number] Univers 12:45:00 13:23:40 ROSHUNDA ity o [facility] 2021-07-22 2021-07-22 Routine [facility] 1.2.840.114 [id number] Univers 12:45:00 13:23:40 Roshunda R AIRPLANE DISPATCH CLERK 350.1.13.10 ity of Visit [facility] 4.2.7.2.686 [place] MATERNAL [id number] [facility] & CHILD [address] [place] [address] 2021-07-22 2021-07-22 Outpatient [facility] [id number] Univers 12:45:00 12:45:00 BANNDA brionna o [facility] 2021-07-15 2021-07-15 Outpatient Erin ANAND [facility] [id number] Univers 13:00:00 13:00:00 BANNDA brionna o [facility] 2021-07-14 2021-07-14 Outpatient Erin ANAND [facility] [id number] Univers 13:15:00 13:15:00 BANNDRayo [place] o [facility] 2021-07-09 2021-07-09 Telephone [facility] [id number] Univers 00:00:00 00:00:00 Roshunda R AIRPLANE DISPATCH CLERK 350.1.13.10 ity of REGIONAL 4.2.7.2.686 [place] MATERNAL [id number] [facility] & CHILD [address] [place] [address] 2021-07-08 2021-07-08 Outpatient Erin ANAND [facility] [id number] Univers 12:45:00 13:40:40 BANNDA brionna o [facility] 2021-07-08 2021-07-08 [facility]patient [facility] [id number] Univers 12:45:00 13:40:40 BANNDA brionna o [facility] 2021-07-08 2021-07-08 Routine [facility] 1.2.840.114 [id number] Univers 12:45:00 13:40:40 Roshunda R AIRPLANE DISPATCH CLERK 350.1.13.10 ity of Visit REGIONAL 4.2.7.2.686 [place] MATERNAL [id number] [facility] & CHILD [address] [place] [address] 2021-06-24 2021-06-24 Outpatient [facility] [id number] Univers 15:15:00 16:06:46 ROSHUNDA ity o [facility] 2021-06-24 2021-06-24 Routine [facility] 1.2.840.114 [id number] Univers 15:15:00 16:06:46 Roshunda R AIRPLANE DISPATCH CLERK 350.1.13.10 ity of Visit REGIONAL 4.2.7.2.686 [place] MATERNAL [id number] Med ical & CHILD [address] [place] [address] 2021-06-09 2021-06-09 Outpatient Erin ANAND [facility] [id number] Univers 08:15:00 08:41:14 VICKY [place] o michael [facility] 2021-05-26 2021-05-26 Outpatient Erin ANAND [facility] [id number] Univers 09:30:00 10:08:32 VICKY [place] o [facility] 2021-05-26 2021-05-26 Routine [facility] 1.2.840.114 [id number] Univers 09:30:00 10:08:32 Vicky Khan AIRPLANE DISPATCH CLERK 350.1.13.10 ity of Visit REGIONAL 4.2.7.2.686 [place] MATERNAL [id number] [facility] & CHILD [address] [place] [address] 2021-05-12 2021-05-12 Outpatient [facility] [id number] Univers 09:00:00 09:36:19 JAMIE dorsey [facility] 2021-05-12 2021-05-12 Routine Provider, Cait [facility] 1 .2.840.114 [id number] Univers 08:53:01 09:36:19 Jamie Conte AIRPLANE DISPATCH CLERK 350.1.13 .10 ity of Visit REGIONAL 4.2.7.2.686 [place] MATERNAL [id number] [facility] & CHILD [address] [place] [address] 2021-04-16 2021-04-16 [facility]phone [facility] 1.2.840.114 [id number] Univers 00:00:00 00:00:00 Nellieridariusz Dorsey AIRPLANE DISPATCH CLERK 350.1.13.10 ity of REGIONAL 4.2.7.2.686 [place] MATERNAL [id number] [facility] & CHILD [address] [place] [address] 2021-04-14 2021-04-14 Outpatient [facility] [id number] Univers 09:00:00 09:25:37 JAMIE dorsey [facility] 2021-04-14 2021-04-14 Routine Provider, Cait [facility] 1 .2.840.114 [id number] Univers 08:59:03 09:25:37 Jamie Conte O AIRPLANE DISPATCH CLERK 350.1.13 .10 ity of Visit [facility] 4.2.7.2.686 [place] MATERNAL [id number] [facility] & CHILD [address] [place] [address] 2021-04-03 2021-04-03 Facilities Maintenance Technician Ultrasound, [facility] [place] 1.2 .840.114 [id number] Univers 13:05:18 14:05:18 Visit Tami Geepalmacecile [address] 350.1 .13.10 ity of [facility] 4.2.7.2.686 [place] [id number] [place] [address] 2021-04-03 2021-04-03 Outpatient P MARLEN [facility] [id number] Univers 13:00:00 13:00:00 CHASEY ity [facility] 2021-03-20 2021-03-20 Outpatient P [facility] [id number] Univers 08:00:00 08:00:00 ity [facility] 2021-03-12 2021-03-12 Routine Provider, Cait [facility] 1 .2.840.114 [id number] Univers 09:57:49 10:51:56 Jamie Conte AIRPLANE DISPATCH CLERK 350.1.13 .10 ity of Visit REGIONAL 4.2.7.2.686 [place] MATERNAL [id number] [facility] & CHILD [address] [place] [address] 2021-03-12 2021-03-12 Outpatient R [facility] [id number] Univers 10:00:00 10:00:00 ity [facility] 2021-02-11 2021-02-11 Routine Kika [facility] 1.2.840.114 [id number] Univers 07:55:38 08:10:38 Roshunda R AIRPLANE DISPATCH CLERK 350.1.13.10 ity of Visit [facility] 4.2.7.2.686 [place] MATERNAL [id number] [facility] & CHILD [address] [place] [address] 2021-02-11 2021-02-11 Outpatient R KIKA [facility] [id number] Univers 08:00:00 08:00:00 ROSHUNDA ity o f [facility] 2021-01-28 2021-01-28 Facilities Maintenance Technician Ultrasound, [facility] 1.2 .840.114 [id number] Univers 15:35:10 16:05:10 Visit MichaelTami brizuela Ofe AIRPLANE DISPATCH CLERK 350.1. 13.10 ity of REGIONAL 4.2.7.2.686 [place] MATERNAL [id number] Med ical & CHILD [address] [facility] 2021-01-28 2021-01-28 Facilities Maintenance Technician Ultrasound, [facility] 1.2 .840.114 [id number] Univers 15:35:10 16:05:10 Visit Marlen Tami Ofe AIRPLANE DISPATCH CLERK 350.1. 13.10 ity of REGIONAL 4.2.7.2.686 [place] MATERNAL [id number] Med ical & CHILD [address] [facility] 2021-01-28 2021-01-28 Outpatient P [facility] [id number] Univers 15:45:00 15:45:00 ity of [facility] 2021-01-28 2021-01-28 Outpatient P [facility] [id number] Univers 14:00:00 14:00:00 ity of [facility] 2021-01-28 2021-01-28 [place] 1.2.840.114 [id number] Univers 00:00:00 00:00:00 Sadea R AIRPLANE DISPATCH CLERK 350.1.13.10 ity of REGIONAL 4.2.7.2.686 [place] MATERNAL [id number] Med ical & CHILD [address] [place] [address] 2021-01-28 2021-01-28 Abstract Kika [place] 1.2.840.114 [id number] Univers 00:00:00 00:00:00 Rosperlanda R AIRPLANE DISPATCH CLERK 350.1.13.10 ity of REGIONAL 4.2.7.2.686 [place] MATERNAL [id number] Med ical & CHILD [address] [facility] 2021-01-13 2021-01-13 Routine [facility] 1.2.840.114 [id number] Univers 08:30:31 08:58:34 Roshunda R AIRPLANE DISPATCH CLERK 350.1.13.10 ity of Visit [facility] 4.2.7.2.686 [place] MATERNAL [id number] [facility] & [address] 2021-01-13 2021-01-13 [facility] [id number] Univers 08:45:00 08:45:00 ROSHUNDA ity o f [facility] 2020-12-16 2020-12-16 Initial [facility] 1.2.840.114 [id number] Univers 08:43:48 10:22:01 Roshunda R AIRPLANE DISPATCH CLERK 350.1.13.10 ity of Visit [facility] 4.2.7.2.686 [place] MATERNAL [id number] [facility] & [address] 2020-12-16 2020-12-16 Outpatient R [facility] [id number] Univers 08:30:00 08:30:00 ity of [facility] 2020-12-16 2020-12-16 Orders Doctor EDDI 1.2.840.114 [id number] Univers 00:00:00 00:00:00 Only Unassigned, ARLEEN 350.1.13.10 ity of [place] [facility] 4.2.7.2.686 [place] [id number] [place] [address] Branch Results This patient has no known results.
[2022-05-28] MEDS ORDERED: ONDANSETRON 4 MG (ODT) TAB ONE (18:02)
[2022-05-28] MEDS ORDERED: ACETAMINOPHEN 500 MG TAB ONE (18:02)
[2022-05-28 18:47] LABS: SARS-COV-2 RT PCR NEGATIVE (NEGATIVE)
--- NOTE | 2022-05-28 18:58 | EDPHYS ---
Physician Documentation [facility] Name: Deisy Jimenez Age: 21 yrs Sex: Female : 2000 Arrival Date: 05/28/2022 Time: 17:42 Bed IW1 Private MD: ED Physician Daniel Lewis HPI: 05/28 18:55 This 21 yrs old Female presents to ER via Ambulatory with complaints of jmm Shortness Of Breath. 18:55 The patient has shortness of breath at rest. Onset: The symptoms/episode began/occurred jmm gradually. Is a 21-year-old female with no chronic medical conditions presents emerged part with complaints of cough, congestion, sore throat beginning approximately 1 day ago. Patient also complains of nausea. Denies diarrhea. Patient states her child has similar upper respiratory symptoms.. Historical: - Allergies: 17:46 No Known Allergies; hb - Home Meds: 17:46 None [Active]; hb - PMHx: 17:46 None; hb - PSHx: 17:46 None; hb - Immunization history:: Adult Immunizations up to date. - Social history:: Smoking status: Patient denies any tobacco usage or history of. ROS: 18:55 Constitutional: Positive for body aches, chills. jmm 18:55 ENT: Positive for sore throat. 18:55 Respiratory: Positive for cough. 18:55 All other systems are negative. Exam: 18:55 Constitutional: This is a well developed, well nourished patient who is awake, alert, jmm and in no acute distress. Head/Face: atraumatic. Eyes: EOMI, no conjunctival erythema appreciated 18:55 Neck: Trachea midline, Supple Chest/axilla: Normal chest wall appearance and motion. Cardiovascular: Regular rate and rhythm. No edema appreciated Respiratory: Normal respirations, no respiratory distress appreciated Abdomen/GI: Non distended Back: Normal ROM Skin: General appearance color normal MS/ Extremity: Moves all extremities, no obvious deformities appreciated, no edema noted to the lower extremities Neuro: Awake and alert Psych: Behavior is normal, Mood is normal, Patient is cooperative and pleasant 18:55 ENT: Posterior pharynx: erythema, that is mild. Vital Signs: 17:45 BP 124 / 84; Pulse 88; Resp 18; Temp 98.7; Pulse Ox 100% on R/A; Weight 56.7 kg; Height hb 5 ft. 4 in. (162.56 cm); Pain 9/10; 17:45 Body Mass Index 21.46 (56.70 kg, 162.56 cm) hb MDM: 17:57 Patient medically screened. [facility] 18:56 Data reviewed: vital signs, nurses notes. Counseling: I had a detailed discussion with [facility] the patient and/or guardian regarding: the historical points, exam findings, and any diagnostic results supporting the discharge/admit diagnosis, lab results, the need for outpatient follow up, to return to the emergency department if symptoms worsen or persist or if there are any questions or concerns that arise at home. 05/28 17:54 Order name: COVID-19/FLU A+B; Complete Time: 18:55 [facility] 05/28 17:54 Order name: Strep; Complete Time: 18:55 [facility] 05/28 18:42 Order name: Throat Culture EDMS Administered Medications: 18:05 Drug: Acetaminophen 1000 mg Route: PO; hb 18:05 Drug: Ondansetron 4 mg Route: PO; hb Disposition Summary: 05/28/22 18:57 Discharge Ordered Location: Home [facility] Condition: Stable [facility] Diagnosis - Acute pharyngitis, unspecified [facility] Followup: [facility] - With: Private Physician - When: 2 - 3 days - Reason: Recheck today's complaints, Continuance of care, Re-evaluation by your physician Discharge Instructions: - Discharge Summary Sheet [facility] - Pharyngitis [facility] Forms: - Work release form [facility] - Medication Reconciliation Form [facility] - Thank You Letter [facility] - Antibiotic Education [facility] - Prescription Opioid Use [facility] Prescriptions: - ondansetron 4 mg Oral tablet,disintegrating - place 1 tablet by TRANSLINGUAL route every 4-6 hours As needed; 30 tablet; [facility] Refills: 0, Product Selection Permitted - Zithromax Z-Chente 250 mg Oral Tablet - take 1 tablet by ORAL route as directed for 5 days Day 1 - take two (2) tablets [facility] one time. Day 2, 3, 4 , 5 take one (1) tablet once daily.; 6 tablet; Refills: 0, Product Selection Permitted - Medrol (Chente) 4 mg Oral Tablets, Dose Pack - take 1 tablet by ORAL route as directed - follow package instructions; 1 [facility] packet; Refills: 0, Product Selection Permitted Addendum: 05/29/2022 19:26 Co-signature as Attending Physician, Daniel Lewis MD I agree with the assessment and r t plan of care. Signatures: Dispatcher [employer] Vaibhav Rojas PA PA jmm Baxter, Heather, TEGAN RN Daniel Javed MD MD rt
--- NOTE | 2022-05-28 18:58 | ER ---
Nurse's Notes [facility] Cornelio Name: Deisy Jimenez Age: 21 yrs Sex: Female : 2000 Arrival Date: 05/28/2022 Time: 17:42 Bed IW1 Private MD: Diagnosis: Acute pharyngitis, unspecified Presentation: 05/28 17:45 Chief complaint: N/V/D, body aches, headache, sore throat, sinus congestion, and SOB hb since yesterday. Not tolerating fluids. Coronavirus screen: At this time, the client does not indicate any symptoms associated with coronavirus-19. Ebola Screen: No symptoms or risks identified at this time. Initial Sepsis Screen: Does the patient meet any 2 criteria? No. Patient's initial sepsis screen is negative. Does the patient have a suspected source of infection? No. Patient's initial sepsis screen is negative. Risk Assessment: Do you want to hurt yourself or someone else? Patient reports no desire to harm self or others. Onset of symptoms was May 27, 2022. 17:45 Method Of Arrival: Ambulatory hb 17:45 Acuity: AHMET 3 hb Historical: - Allergies: 17:46 No Known Allergies; hb - Home Meds: 17:46 None [Active]; hb - PMHx: 17:46 None; hb - PSHx: 17:46 None; hb - Immunization history:: Adult Immunizations up to date. - Social history:: Smoking status: Patient denies any tobacco usage or history of. Vital Signs: 17:45 BP 124 / 84; Pulse 88; Resp 18; Temp 98.7; Pulse Ox 100% on R/A; Weight 56.7 kg; Height hb 5 ft. 4 in. (162.56 cm); Pain 9/10; 17:45 Body Mass Index 21.46 (56.70 kg, 162.56 cm) hb ED Course: 17:42 Patient arrived in ED. mr 17:44 Vaibhav Kovacs PA is PHCP. [facility] 17:44 Daniel Lewis MD is Attending Physician. [facility] 17:46 Triage completed. hb 17:46 Arm band placed on. hb 18:05 Strep Sent. hb 18:05 COVID-19/FLU A+B Sent. hb Administered Medications: 18:05 Drug: Acetaminophen 1000 mg Route: PO; hb 18:05 Drug: Ondansetron 4 mg Route: PO; hb Outcome: 18:57 Discharge ordered by . lamine 19:03 Patient left the ED. hb Signatures: Vaibhav Kovacs PA PA jmm Rivera, Mary mr Hanny Bajwa, RN RN hb
[2022-05-28 19:35] VITALS: BP 124/84; TEMP 98.7; O2SAT 100
== END 2022-05-28 19:03 | disposition home or self-care (01) ==
LOC: ER 17:39
DX: J02.9 Acute pharyngitis, unspecified (principal); R05.9 Cough, unspecified; Z20.822 Contact with and (suspected) exposure to COVID-19
CPT/HCPCS: 87070; 87081; 0240U; 99283; Q0162

== ENCOUNTER 2022-10-24 14:01 | Emergency (ER) | payer OTHER ==
--- OUTSIDE RECORDS SUMMARY | 2022-10-24 14:26 | XMS REPORT | Continuity of Care Document ---
:2000 Author Organization [facility] t Address [address] [place] [address] Care Team Providers Name Role Phone VICKY ANAND Primary Care Physician Unavailable VICKY ANAND Attending Clinician Unavailable Vicky Oliveros Attending Clinician Moustapha Engle MD Attending Clinician Hossein Jean Baptiste MD Attending Clinician Estephania Teran MD, Leonard Attending Clinician ESPERANZA APPIAH Attending Clinician Unavailable Esperanza Appiah MD Attending Clinician JAMIE CONTE Attending Clinician Unavailable Provider, Roroleonidas Temp Attending Clinician Unavailable [place] Jamie SLOAN Attending Clinician [phone] Ultrasound, Huong Mfm Attending Clinician Unavailable Tami Gee MD Attending Clinician [phone] TAMI GEE Attending Clinician Unavailable Ultrasound, AngRickey Attending Clinician Unavailable Doctor Unassigned, [place] Attending Clinician Unavailable Moustapha Engle MD Admitting Clinician MOUSTAPHA ENGLE Admitting Clinician Unavailable ESPERANZA APPIAH Admitting Clinician Unavailable Esperanza Appiah MD Admitting Clinician Payers Payer Name Policy Type Policy Number Effective Date Expiration Date Pietro luque [facility] [id number] 2021 [place]ICE [place] 00:00:00 [place] [facility] [id number] 2021 HEALTH 00:00:00 MEDICAID PENDING PENDING 2020 00:00:00 MED[place] [id number] 2017 00:00:00 Problems Condition Condition Condition Status [...] ity of 30-39.9) 30-39.9) 00:00: [place] 00 [facility] Branch Vacuum-ass Vacuum-ass Disease Active U nivers isted isted 2-25 ity of vaginal vaginal 00:00: [place] delivery delivery 00 [facility] Normal Normal Disease Active Univers labor labor 2-24 ity of 00:00: [place] 00 [facility] Branch COVID-19 COVID-19 Disease Active Unive rs virus IgG virus IgG 2-23 ity of antibody antibody 00:00: [place] detected detected 00 [facility] BMI BMI Disease Active 2020-06 Univers 25.0-25.9, 25.0-25.9, 2-20 it y of adult adult 00:00: [place] 00 [facility] Branch Rubella Rubella Disease Active Overview: Univ ers non-immune non-immune 12-17 Formattin ity of status, status, 00:00: g of this [place] antepartum antepartum 00 note Me dical might [...] third third 00:00: [place] trimester trimester 00 [facility] mario Branch Depression Depression Disease Active U nivers , , 7-12 ity of unspecifie unspecifie [place] Medical depression depression Br anch type type Teen Teen Disease Active Univers emotional emotional - ity of problem problem 00:00: [place] 00 [facility] Scabies Scabies Disease Active Univers 4-25 ity of 00:00: [place] [address] Medical Branch Allergies, Adverse Reactions, Alerts Allergy Allergy Status Severity Reaction(s) Onset Inactive Treating Comm ents Source Name Type Date Date Clinician NO KNOWN Drug Active Univers ALLERGIE Class ity of S [facility] Social History Social Habit Start Date Stop Date Quantity Comments Source Exposure to Not sure [facility] [place]-CoV-2 [facility] (event) Branch Alcohol intake 2021-09-15 2021-09-15 Current University of 00:00:00 00:00:00 non-drinker of [facility] alcohol [place] (finding) Tobacco use and 2012-09-20 2012-09-20 Never used Universit y of exposure 00:00:00 00:00:00 [facility] Tobacco Comment 2012-09-20 2012-09-20 Denies smoking Unive rsity of 00:00:00 00:00:00 exposure [facility] Sex Assigned At [birth year] Universit y of 00:00:00 00:00:00 [facility] Smoking Status Start Date Stop Date Source Never smoker [facility] Medications Ordered Filled Start Stop Current Ordering Indication Dosage Frequency Signature Comments Components Source Medication Medication Date Date Medication? Clinician (SIG) Name Name ferrous Yes [id number] 325mg Take 1 Uni vers sulfate 325 2-27 tablet by ity of mg (65 mg 00:00: mouth 2 [place] iron) 00 (two) Medical tablet times Branch daily. ibuprofen Yes [id number] 600mg Take 1 U nivers 600 mg 2-27 tablet by ity of tablet 00:00: mouth [place] 00 every 6 Medical (six) Branch hours as needed (Pain). Take with food or milk. 2021- No [id number] 1{tbl} Take 1 Univers vitamin 2-27 04-11 tablet by ity of w/FA tablet 00:00: 00:00 mouth [place] :00 daily. Medical Branch docusate 2021- No [id number] 240mg Take 1 U nivers calcium 240 08-03- capsule by i ty of mg capsule 00:00: 00:00 mouth once [place] 00 :00 daily as Medical needed for Branch Constipati on. Immunizations Ordered Immunization Filled Immunization Date Status Commen ts Source Name Name [facility] 2021-05-12 Completed University of 00:00:00 [facility] TDAP 2013-10-16 Completed University of 00:00:00 [facility] Meningococcal 2013-10-16 Completed University of Polysaccharide 00:00:00 [facility] mario (groups A, C, Y and Branc h W-135) conjugate vaccine (MCV4P) Varicella 2013-10-16 Completed University of (varivax)(chicken 00:00:00 [place] M edical pox) Branch HEPATITIS A 2005-08-04 Completed University of 00:00:00 [facility] HEPATITIS A 2005-01-15 Completed University of 00:00:00 [facility] DTAP 2004-11-04 Completed University of 00:00:00 [facility] Polio (IPV/OPV) 2004-11-04 Completed Universit y of 00:00:00 [facility] MMR 2004-11-04 Completed University of 00:00:00 [facility] Pneumococcal 7 2002-09-04 Completed University of Conjugate, PCV7 00:00:00 [place] Med ical (Prevnar7) Branch DTAP 2001-12-29 Completed University of 00:00:00 [facility] Hep B, Adol or Pedi 2001-12-29 Completed Unive rsity of Dosage 00:00:00 [facility] HIB 4 Dose Schedule 2001-10-13 Completed Unive rsity of 00:00:00 [facility] MMR 2001-10-13 Completed University of 00:00:00 [facility] Polio (IPV/OPV) 2001-10-13 Completed Universit y of 00:00:00 [facility] Varicella 2001-10-13 Completed University of (varivax)(chicken 00:00:00 [place] M edical pox) Branch DTAP 2001-06-01 Completed University of 00:00:00 [facility] HIB 4 Dose Schedule 2001-06-01 Completed Unive rsity of 00:00:00 [facility] Hep B, Adol or Pedi 2001-06-01 Completed Unive rsity of Dosage 00:00:00 [facility] Pneumococcal 7 2001-06-01 Completed University of Conjugate, PCV7 00:00:00 [place] Med ical (Prevnar7) Branch DTAP 2001-03-01 Completed University of 00:00:00 [facility] HIB 4 Dose Schedule 2001-03-01 Completed Unive rsity of 00:00:00 [facility] Pneumococcal 7 2001-03-01 Completed University of Conjugate, PCV7 00:00:00 [place] Med ical (Prevnar7) Branch Polio (IPV/OPV) 2001-03-01 Completed Universit y of 00:00:00 [facility] DTAP 2000 Completed University of 00:00:00 [facility] HIB 4 Dose Schedule 2000 Completed Unive rsity of 00:00:00 [facility] Pneumococcal 7 2000 Completed University of Conjugate, PCV7 00:00:00 [place] Med ical (Prevnar7) Branch Polio (IPV/OPV) 2000 Completed Universit y of 00:00:00 [facility] Hep B, Adol or Pedi 2000 Completed Unive rsity of Dosage 00:00:00 [facility] Vital Signs Vital Name Observation Time Observation Value Comments Source Systolic blood 2021-09-15 18:19:00 115 mm[Hg] Univer sity of pressure [facility] Diastolic blood 2021-09-15 18:19:00 73 mm[Hg] Unive rsity of pressure [facility] Heart rate 2021-09-15 18:19:00 70 /min [facility] Body temperature 2021-09-15 18:19:00 35.89 Ernestine [facility] Respiratory rate 2021-09-15 18:19:00 16 /min [facility] Body height 2021-09-15 18:19:00 162.6 cm [facility] Body weight 2021-09-15 18:19:00 66.543 kg [facility] BMI 2021-09-15 18:19:00 25.18 kg/m2 [facility] Procedures This patient has no known procedures. Encounters Start End Encounter Admission Attending Care Care Encounter Source Date/Time Date/Time Type Type Clinicians Facility Department ID 2022-09-15 2022-09-15 Outpatient Erin ANAND [facility] [id number] Univers 13:00:00 13:00:00 VICKY rodriguez [facility] 2021-09-15 2021-09-15 Outpatient Erin ANAND [facility] [id number] Univers 13:00:00 13:57:48 VICKY rodriguez [facility] 2021-09-15 2021-09-15 [facility] 1.2.840.114 [id number] Univers 13:00:00 13:57:48 Visit Vicky Erin TIE CARRIER [id number] [facility] [id number] [place] as MATERNAL [id number] Med ical & CHILD [address] [place] [address] 2021-09-15 2021-09-15 Outpatient Erin ANAND [facility] [id number] Univers 13:00:00 13:57:48 VICKY rodriguez [facility] 2021-08-26 2021-08-26 Outpatient Erin ANAND [facility] [id number] Univers 11:00:00 11:00:00 VICKY rodriguez [facility] 2021-08-08 2021-08-08 Outpatient Erin ANAND [facility] [id number] Univers 10:30:00 10:30:00 VICKY rodriguez [facility] 2021-07-31 2021-08-03 [facility] Moustapha Engle [facility] 1.2.840.114 [id number] Univers 19:18:00 17:15:00 Encounter JHON [id number] ity of [place] [id number] [facility] [id number] [address] 2021-08-01 2021-08-01 Anesthesia Hossein Jean Baptiste [facility] 1.2 .840.114 [id number] Univers 08:22:00 18:09:00 Event Fernie Best [id number] ity of [place] 4.2.7.2.686 [facility] [id number] [address] 2021-07-30 2021-07-30 [facility]ine [facility] 1.2.840.114 [id number] Univers 09:00:00 09:15:00 Roshunda R TIE CARRIER [id number] [facility] [id number] [place] MATERNAL [id number] [facility] ical & CHILD [address] [place] [address] 2021-07-30 2021-07-30 [facility] [id number] Univers 09:00:00 09:00:00 ROSHUNDA ity o f [facility] 2021-07-30 2021-07-30 Outpatient [facility] MOI [id number] Univers 09:00:00 09:00:00 ROSHUNDA ity o f [facility] 2021-07-27 2021-07-27 Outpatient [facility] MOI [id number] Univers 20:57:00 22:17:00 ESPERANZA staton of [facility] 2021-07-27 2021-07-27 [facility] 1.2.840.114 [id number] Univers 20:57:00 22:17:00 Encounter Esperanza Franco [place] [id number] ity [facility] [id number] [place] [id number] [address] 2021-07-23 2021-07-23 Outpatient R [facility] [id number] Univers 13:30:00 13:30:00 ity of [facility] 2021-07-22 2021-07-22 Outpatient Erin ANAND [facility] [id number] Univers 12:45:00 13:23:40 ROSHUNDA ity o f [facility] 2021-07-22 2021-07-22 [facility]ine [facility] 1.2.840.114 [id number] Univers 12:45:00 13:23:40 Roshunda R TIE CARRIER [id number] [facility] [id number] [place] MATERNAL [id number] [facility] & CHILD [address] [place] [address] 2021-07-22 2021-07-22 [facility]patient [facility] [id number] Univers 12:45:00 12:45:00 BANNDA brionna o [facility] 2021-07-15 2021-07-15 Outpatient Erin ANAND [facility] [id number] Univers 13:00:00 13:00:00 BANNDA brionna o [facility] 2021-07-14 2021-07-14 [facility] [id number] Univers 13:15:00 13:15:00 BANNDRayo staton o [facility] 2021-07-09 2021-07-09 Telephone [facility] [id number] Univers 00:00:00 00:00:00 Roshunda R TIE CARRIER [id number] ity of REGIONAL [id number] [place] MATERNAL [id number] [facility]ILD [address] [place] [address] 2021-07-08 2021-07-08 Outpatient Erin ANAND [facility] [id number] Univers 12:45:00 13:40:40 BANNDA brionna o [facility] 2021-07-08 2021-07-08 [facility]patient [facility] [id number] Univers 12:45:00 13:40:40 BANNDA brionna o [facility] 2021-07-08 2021-07-08 [facility] 1.2.840.114 [id number] Univers 12:45:00 13:40:40 Roshunda R TIE CARRIER [id number] ity of Visit REGIONAL [id number] [place] MATERNAL [id number] [facility]ILD [address] [place] [address] 2021-06-24 2021-06-24 Outpatient [facility] [id number] Univers 15:15:00 16:06:46 ROSHUNDA ity o [facility] 2021-06-24 2021-06-24 [facility]ine [facility] 1.2.840.114 [id number] Univers 15:15:00 16:06:46 Roshunda R TIE CARRIER 350.1.13.10 ity of Visit REGIONAL 4.2.7.2.686 [place] MATERNAL [id number] Med ical & CHILD [address] [place] [address] 2021-06-09 2021-06-09 Outpatient Erin ANAND [facility] [id number] Univers 08:15:00 08:41:14 VICKY staton o michael [facility] 2021-05-26 2021-05-26 Outpatient Eirn ANAND [facility] [id number] Univers 09:30:00 10:08:32 VICKY staton o [facility] 2021-05-26 2021-05-26 [facility]ine [facility] 1.2.840.114 [id number] Univers 09:30:00 10:08:32 Vicky Khan TIE CARRIER [id number] [facility] [id number] [place] MATERNAL [id number] [facility]ILD [address] [place] [address] 2021-05-12 2021-05-12 Outpatient [facility] [id number] Univers 09:00:00 09:36:19 JAMIE dorsey [facility] 2021-05-12 2021-05-12 Routine Provider, RoroRmchdebbie [facility] 1 .2.840.114 [id number] Univers 08:53:01 09:36:19 Jamie Conte TIE CARRIER 350.1.13 .10 ity of Visit REGIONAL 4.2.7.2.686 [place] MATERNAL [id number] [facility] CHILD [address] [place] [address] 2021-04-16 2021-04-16 Telephone [facility] 1.2.840.114 [id number] Univers 00:00:00 00:00:00 Nellieridariusz Dorsey TIE CARRIER 350.1.13.10 ity of REGIONAL 4.2.7.2.686 [place] MATERNAL [id number] [facility] CHILD [address] [place] [address] 2021-04-14 2021-04-14 Outpatient [facility] [id number] Univers 09:00:00 09:25:37 JAMIE staton o [facility] 2021-04-14 2021-04-14 Routine Provider, Cait Shankar [facility] 1 .2.840.114 [id number] Univers 08:59:03 09:25:37 Jamie Conte O TIE CARRIER 350.1.13 .[address] [facility] [id number] [place] MATERNAL [id number] [facility] CHILD [address] [place] [address] 2021-04-03 2021-04-03 Package Car Driver Ultrasound, Adc [facility] 1.2 .840.114 [id number] Univers 13:05:18 14:05:18 Visit Tami Gee Stormydariusz [place] 350.1 .13.10 ity of [facility] 4.2.7.2.686 [place] PROF[place] [id number] [place] [address] 2021-04-03 2021-04-03 Outpatient P MARLEN [facility] [id number] Univers 13:00:00 13:00:00 CHASEY ity [facility] [place] [facility] 2021-03-20 2021-03-20 Outpatient P [facility] [id number] Univers 08:00:00 08:00:00 ity [facility] 2021-03-12 2021-03-12 Routine Provider, Cait Shankar [facility] 1 .2.840.114 [id number] Univers 09:57:49 10:51:56 Jamie Conte O TIE CARRIER 350.1.13 .10 ity of Visit REGIONAL 4.2.7.2.686 [place] MATERNAL [id number] [facility] & CHILD [address] [place] [address] 2021-03-12 2021-03-12 Outpatient R [facility] [id number] Univers 10:00:00 10:00:00 ity [facility] 2021-02-11 2021-02-11 Routine Kika [facility] 1.2.840.114 [id number] Univers 07:55:38 08:10:38 Roshunda R TIE CARRIER 350.1.13.[address] [facility] [id number] [place] MATERNAL [id number] [facility] CHILD [address] [place] [address] 2021-02-11 2021-02-11 Outpatient R KIKA [facility] [id number] Univers 08:00:00 08:00:00 ROSHUNDA ity o f [facility] 2021-01-28 2021-01-28 Package Car Driver Ultrasound, [facility] 1.2 .840.114 [id number] Univers 15:35:10 16:05:10 Visit Marlen Brunomaria del rosario Thakur TIE CARRIER 350.1. 13.10 ity of REGIONAL 4.2.7.2.686 [place] as MATERNAL [id number] Med ical & CHILD [address] [place] [address] 2021-01-28 2021-01-28 Package Car Driver Ultrasound, [facility] 1.2 .840.114 [id number] Univers 15:35:10 16:05:10 Visit Tami Gee TIE CARRIER 350.1. 13.10 ity of REGIONAL 4.2.7.2.686 [place] as MATERNAL [id number] Med ical & CHILD [address] [place] [address] 2021-01-28 2021-01-28 Outpatient P [facility] [id number] Univers 15:45:00 15:45:00 ity of [facility] 2021-01-28 2021-01-28 Outpatient P [facility] [id number] Univers 14:00:00 14:00:00 ity of [facility] 2021-01-28 2021-01-28 Abstract KikaBUSY, UTRAVINDER 1.2.840.114 [id number] Univers 00:00:00 00:00:00 Sadea R TIE CARRIER 350.1.13.10 ity of REGIONAL 4.2.7.2.686 [place] MATERNAL [id number] [facility] ical & CHILD [address] [place] [address] 2021-01-28 2021-01-28 Abstract Kika VARAVINDER 1.2.840.114 [id number] Univers 00:00:00 00:00:00 Rosperlanda R TIE CARRIER 350.1.13.10 ity of REGIONAL 4.2.7.2.686 [place] as MATERNAL [id number] Med ical & CHILD [address] [place] [address] 2021-01-13 2021-01-13 Routine [facility] 1.2.840.114 [id number] Univers 08:30:31 08:58:34 Roshunda R TIE CARRIER 350.1.13.[address] [facility] 4.2.7.2.686 [place] MATERNAL [id number] [address] 2021-01-13 2021-01-13 Outpatient R [facility] [id number] Univers 08:45:00 08:45:00 ROSHUNDA ity o f [facility] 2020-12-16 2020-12-16 Initial [facility] 1.2.840.114 [id number] Univers 08:43:48 10:22:01 Rosperlanda R TIE CARRIER 350.1.13.[address] [facility] 4.2.7.2.686 [place] as MATERNAL [id number] [address] 2020-12-16 2020-12-16 Outpatient R [facility] [id number] Univers 08:30:00 08:30:00 ity of [facility] 2020-12-16 2020-12-16 Orders Doctor EDDI 1.2.840.114 [id number] Univers 00:00:00 00:00:00 Only Unassigned, ARLEEN 350.1.13.10 ity of [place] [facility] 4.2.7.2.686 [place] as [phone] [place] [address] Branch Results This patient has no known results.
[2022-10-24] MEDS ORDERED: MORPHINE 4 MG/ML SYR ONE (15:56)
[2022-10-24] MEDS ORDERED: ONDANSETRON 4 MG/2 ML VIAL ONE (15:56)
[2022-10-24] MEDS ORDERED: NA CHLORIDE 0.9% 1,000 ML ONE ×2 (15:56→18:19)
[2022-10-24 16:13] LABS: Absolute Lymphocytes (CBC) 1.2 K/uL (0.7-4.9); Hematocrit 42.1 % (36.0-45.0); Lymphocytes % 17.1 % (15.3-44.8); MCV 96.5 fL (80-100); MPV 8.4 fL (7.6-11.3); RBC Red Blood Cell Count 4.36 M/uL (3.86-4.86)
[2022-10-24] MEDS ORDERED: HYDROMORPHONE HCL 1 MG/ML INJ ONE (16:38)
[2022-10-24 16:42] LABS: Albumin 4.1 g/dL (3.4-5.0); Bilirubin Total 0.7 mg/dL (0.2-1.0); Protein, Total 8.4 g/dL (6.4-8.2)
--- NOTE | 2022-10-24 17:45 | RAD REPORT ---
EXAM DESCRIPTION: CT - Abdomen Pelvis W Contrast - 10/24/2022 5:33 pm CLINICAL HISTORY: Abdominal pain / right flank pain COMPARISON: none. TECHNIQUE: Computed axial tomography of the abdomen pelvis was obtained. 100 cc Isovue-300 was admin istered intravenously. Oral contrast was not requested which limits evaluation of bowel and appendix All CT scans are performed using dose optimization technique as appropriate and may include automated exposure control or mA/KV adjustment according to patient size. FINDINGS: Marked right hydronephrosis. Delay in concentration contrast right kidney. Marked right hy droureter. 5 millimeter calculus right UVJ. 5 millimeter calculus distal right ureter are Several small nonobstructing left renal calculi Liver, spleen, pancreas and adrenals unremarkable No evidence diverticulitis 2 centimeter irregularly-shaped left ovarian cyst has likely recent ruptured. Small amount free fluid in the pelvis IMPRESSION: 5 millimeter calculus distal right ureter. 5 millimeter calculus right UVJ. Marked right hydronephrosis and right hydroureter
[2022-10-24] MEDS ORDERED: KETOROLAC 30 MG/ML INJ ONE (18:19)
[2022-10-24] MEDS ORDERED: CEFTRIAXONE 1000 MG/VIAL ONE (18:19)
[2022-10-24] MEDS ORDERED: PROMETHAZINE INJ 25 MG/ML AMP ONE (18:19)
[2022-10-24 20:31] LABS: Specific Gravity > 1.030 (1.005-1.030)
[2022-10-24 20:35] LABS: Specific Gravity > 1.030 (1.005-1.030); Urine Bacteria 20-50 /HPF (<20); Urine Bilirubin NEGATIVE (Negative); Urine Blood 3+ (Negative); Urine Clarity Clear (Clear); Urine Color Light-Yellow (Yellow); Urine Glucose NEGATIVE (Negative); Urine Mucus Slight /HPF (None Seen); Urine Protein TRACE (Negative); Urine Urobilinogen Normal (Normal); Urine WBC Clump Rare /HPF (None Seen); Urine pH 6.5 (5.0-7.0)
--- NOTE | 2022-10-24 20:59 | RAD REPORT ---
EXAM DESCRIPTION: RAD - Abdomen 1 View (KUB) - 10/24/2022 8:50 pm CLINICAL HISTORY: Abdomen pain FINDINGS: The bowel gas pattern is unremarkable. Contrast within the bladder. Two calculi right pelvis. One within the distal right ureter and the other right UPJ. They appear unc hanged from the CT scan same date
--- NOTE | 2022-10-24 21:20 | EDPHYS ---
Physician Documentation [facility] Name: Deisy Jimenez Age: 22 yrs Sex: Female : 2000 Arrival Date: 10/24/2022 Time: 14:01 Bed 5 Private MD: CANDI Physician Russell Kuo HPI: 10/24 14:35 This 22 yrs old Female presents to ER via Ambulatory with complaints of Flank jh7 Pain. 14:35 The patient complains of pain in the right low back. The pain radiates to the right jh7 lower quadrant. Onset: The symptoms/episode began/occurred this morning. 22-year-old female reports right flank pain radiating to right lower quadrant starting this morning. She denies burning with urination but states slight difficulty urinating. No medical problems.. Historical: - Allergies: 14:38 No Known Allergies; hb - Home Meds: 14:38 None [Active]; hb - PMHx: 14:38 None; hb - PSHx: 14:38 None; hb - Immunization history:: Adult Immunizations up to date. - Social history:: Smoking status: Reported history of juuling and/or vaping. ROS: 14:35 Constitutional: Negative for fever, chills, and weight loss, Eyes: Negative for injury, jh7 pain, redness, and discharge, Neck: Negative for injury, pain, and swelling, Cardiovascular: Negative for chest pain, palpitations, and edema, Respiratory: Negative for shortness of breath, cough, wheezing, and pleuritic chest pain, Back: Negative for injury and pain, MS/Extremity: Negative for injury and deformity, Skin: Negative for injury, rash, and discoloration, Neuro: Negative for headache, weakness, numbness, tingling, and seizure. 14:35 Abdomen/GI: Positive for abdominal pain, nausea and vomiting, Negative for diarrhea, constipation, rectal bleeding. 14:35 : Positive for flank pain, Negative for burning with urination. 14:35 All other systems are negative. Exam: 14:35 Head/Face: Normocephalic, atraumatic. Eyes: Pupils equal round and reactive to light, jh7 extra-ocular motions intact. Lids and lashes normal. Conjunctiva and sclera are non-icteric and not injected. Cornea within normal limits. Periorbital areas with no swelling, redness, or edema. Neck: Trachea midline, no thyromegaly or masses palpated, and no cervical lymphadenopathy. Supple, full range of motion without nuchal rigidity, or vertebral point tenderness. No Meningismus. Cardiovascular: Regular rate and rhythm with a normal S1 and S2. No gallops, murmurs, or rubs. Normal PMI, no JVD. No pulse deficits. Respiratory: Lungs have equal breath sounds bilaterally, clear to auscultation and percussion. No rales, rhonchi or wheezes noted. No increased work of breathing, no retractions or nasal flaring. 14:35 Skin: Warm, dry with normal turgor. Normal color with no rashes, no lesions, and no evidence of cellulitis. MS/ Extremity: Pulses equal, no cyanosis. Neurovascular intact. Full, normal range of motion. Neuro: Awake and alert, GCS 15, oriented to person, place, time, and situation. Motor strength 5/5 in all extremities. Sensory grossly intact. Normal gait. 14:35 Constitutional: The patient appears alert, awake, in obvious pain. 14:35 Abdomen/GI: Inspection: abdomen appears normal, Bowel sounds: normal, Palpation: soft, moderate abdominal tenderness, in the right lower quadrant. 14:35 Back: pain, that is mild, CVA tenderness, is noted on the right. 14:35 : CVA tenderness, on the right. Vital Signs: 14:37 BP 137 / 93; Pulse 69; Resp 18; Temp 98.3; Pulse Ox 100% ; Weight 74.84 kg; Height 5 hb ft. 5 in. ; Pain 10/10; 17:17 BP 122 / 87; Pulse 80; Resp 16; Pulse Ox 99% on R/A; hb 20:00 BP 109 / 48; Pulse 68; Resp 15 S; Pulse Ox 100% on R/A; ha1 20:30 BP 105 / 67; Pulse 60; Resp 15 S; Pulse Ox 100% on R/A; ha1 20:35 BP 109 / 48; Pulse 60; Resp 16 S; Pulse Ox 100% on R/A; ha1 14:37 Body Mass Index 27.46 (74.84 kg, 165.1 cm) hb 14:37 Pain Scale: Adult hb MDM: 14:03 Patient medically screened. jh7 17:57 Management of patient was discussed with the following: Discussed case with attending [facility] physician Dr. Russell Kuo, who advised giving an additional liter of fluids, Rocephin, and pain medication. After reviewing the CT, he states that the patient should be able to pass the stone on her own and to discharge her with Flomax, pain medicine, and antibiotics. Advised to have her follow-up with urology outpatient.. 20:25 Transition of care: After a detail discussion of the patient's case, care is [facility] transferred to [facility]. 21:23 Differential diagnosis: UTI, Hydronephrosis Pyelonephritis. Data reviewed: snw vital signs, nurses notes, lab test result(s), radiologic studies. Counseling: I had a detailed discussion with the patient and/or guardian regarding: the historical points, exam findings, and any diagnostic results supporting the discharge/admit diagnosis, lab results, radiology results, the need for outpatient follow up, for definitive care, a urologist, to return to the emergency department if symptoms worsen or persist or if there are any questions or concerns that arise at home. Response to treatment: the patient's symptoms have markedly improved after treatment. Special discussion: Based on the patient's Hx, exam, and Dx evaluation, there is no indication for emergent surgery or inpatient Tx. It is understood by the patient/guardian that if the Sx's persist or worsen they need to return immediately for re-evaluation. Based on the history and exam findings, there is no indication for further emergent testing or inpatient evaluation. I discussed with the patient/guardian the need to see the primary care provider for further evaluation of the symptoms. I discussed with the patient/guardian the need to see the urologist for further evaluation of the symptoms. ED course: return precautions discussed and pt states understanding, requests discharge, will RTED prn. 10/24 14:15 Order name: CBC with Diff; Complete Time: 16:19 [facility] 10/24 14:15 Order name: CMP; Complete Time: 16:47 [facility] 10/24 14:15 Order name: Lipase; Complete Time: 16:47 [facility] 10/24 14:15 Order name: Test, Urine; Complete Time: 20:41 [facility] 10/24 14:15 Order name: Urinalysis w/ reflexes; Complete Time: 20:41 [facility] 10/24 16:38 Order name: Add On-Lab snw 10/24 17:00 Order name: Test Serum, Qualitat; Complete Time: 17:17 [facility] 10/24 20:39 Order name: Urine Culture [facility] 10/24 14:15 Order name: CT Abd/Pelvis - IV Contrast Only; Complete Time: 17:47 [facility] 10/24 20:07 Order name: MIKE LEAL; Complete Time: 21:08 [facility] 10/24 14:15 Order name: IV Saline Lock; Complete Time: 16:06 [facility] 10/24 14:15 Order name: Labs collected and sent; Complete Time: 16:06 [facility] Administered Medications: 16:00 Drug: NS 0.9% IV 1000 ml Route: IV; Rate: 1 bolus; Site: right antecubital; vg1 17:17 Follow up: IV Status: Completed infusion; IV Intake: 1000ml hb 16:00 Drug: Ondansetron IVP 4 mg Route: IVP; Site: right antecubital; vg1 17:18 Follow up: Response: No adverse reaction; Marked relief of symptoms hb 16:02 Drug: morphine IVP or IV 4 mg Route: IVP; Infused Over: 4 mins; Site: right antecubital;vg1 16:32 Follow up: Response: No adverse reaction; No change in condition vg1 16:33 Drug: HYDROmorphone IVP 1 mg Route: IVP; Site: right antecubital; vg1 17:17 Follow up: Response: No adverse reaction; Pain is decreased hb 18:22 Drug: Promethazine IVP 12.5 mg Route: IVP; Site: right antecubital; iw 18:22 Drug: Ketorolac IVP 30 mg Route: IVP; Site: right antecubital; iw 18:23 Drug: NS 0.9% IV 1000 ml Route: IV; Rate: 1 bolus; Site: right antecubital; iw 18:23 Drug: Rocephin IV 1 grams Route: IV; Rate: 1 calculated rate; Site: right antecubital; iw 21:22 Drug: Flomax PO 0.4 mg Route: PO; ha1 21:36 Follow up: Response: No adverse reaction ha1 Disposition Summary: 10/24/22 21:20 Discharge Ordered Location: Home snw Condition: Stable snw Diagnosis - Hydronephrosis with renal and ureteral calculous obstruction snw - UTI/ Urinary tract infection, site not specified snw Followup: snw - With: Emergency Department - When: As needed - Reason: Worsening of condition, fever, concerns, worsening Followup: snw - With: Private Physician - When: 2 - 3 days - Reason: Recheck today's complaints, Continuance of care, Re-evaluation by your physician Discharge Instructions: - Discharge Summary Sheet snw - Kidney Stones snw - Urinary Tract Infection, Adult snw - Hydronephrosis snw - Dietary Guidelines to Help Prevent Kidney Stones snw - Rehydration, Adult snw Forms: - Work release form snw - Medication Reconciliation Form snw - Thank You Letter snw - Antibiotic Education snw - Prescription Opioid Use snw Prescriptions: - tamsulosin 0.4 mg Oral capsule - take 1 capsule by ORAL route every day at bedtime; 10 capsule; Refills: 0, snw Product Selection Permitted - Augmentin 875-125 mg Oral Tablet - take 1 tablet by ORAL route every 12 hours for 10 days; 20 tablet; Refills: 0, snw Product Selection Permitted - Mobic 7.5 mg Oral Tablet - take 1 tablet by ORAL route once daily take with food; 20 tablet; Refills: 0, snw Product Selection Permitted - promethazine 25 mg Oral Tablet - take 1 tablet by ORAL route every 6 hours As needed; 20 tablet; Refills: 0, snw Product Selection Permitted Signatures: Dispatcher [employer] EDSC Yvette Sánchez, BUILDING [employer] RETROFIT TECHNICIAN-C [facility] Jeny Miller, RN Hanny Ellis, RN Carmen Govea RN TEGAN 1 Leah Frye, [facility]7 Alexia Samson, TEGAN RN ha1
--- NOTE | 2022-10-24 21:20 | ER ---
Nurse's Notes [facility] Name: Deisy Jimenez Age: 22 yrs Sex: Female : 2000 Arrival Date: 10/24/2022 Time: 14:01 Bed 5 Private MD: Diagnosis: Hydronephrosis with renal and ureteral calculous obstruction;UTI/ Urinary tract infection, site not specified Presentation: 10/24 14:37 Chief complaint: Right flank pain and urinary urgency and hesitancy since this morning. hb Coronavirus screen: At this time, the client does not indicate any symptoms associated with coronavirus-19. Ebola Screen: No symptoms or risks identified at this time. Initial Sepsis Screen: Does the patient meet any 2 criteria? No. Patient's initial sepsis screen is negative. Does the patient have a suspected source of infection? No. Patient's initial sepsis screen is negative. Risk Assessment: Do you want to hurt yourself or someone else? Patient reports no desire to harm self or others. Onset of symptoms was October 24, 2022. 14:37 Method Of Arrival: Ambulatory hb 14:37 Acuity: AHMET 3 hb Historical: - Allergies: 14:38 No Known Allergies; hb - Home Meds: 14:38 None [Active]; hb - PMHx: 14:38 None; hb - PSHx: 14:38 None; hb - Immunization history:: Adult Immunizations up to date. - Social history:: Smoking status: Reported history of juuling and/or vaping. Screenin:08 [facility] ED Fall Risk Assessment (Adult) History of falling in the last 3 months, vg1 including since admission No falls in past 3 months (0 pts). Abuse screen: Denies threats or abuse. Denies injuries from another. Nutritional screening: No deficits noted. Tuberculosis screening: No symptoms or risk factors identified. Assessment: 16:08 General: Appears in no apparent distress. uncomfortable, Behavior is cooperative. Pain: vg1 Complains of pain in right lower quadrant Pain radiates to posterior aspect of right lateral abdomen Pain currently is 10 out of 10 on a pain scale. Pain began this morning. Neuro: Level of Consciousness is awake, alert, obeys commands, Oriented to person, place, time, situation. Cardiovascular: Patient's skin is warm and dry. Respiratory: Airway is patent Respiratory effort is even, unlabored. GI: Abdomen is flat, Reports lower abdominal pain, nausea. : Denies burning with urination, pain with urination. Musculoskeletal: Circulation, motion, and sensation intact. 17:17 Reassessment: Patient appears in no apparent distress at this time. Patient and/or vg1 family updated on plan of care and expected duration. Pain level reassessed. Patient is alert, oriented x 3, equal unlabored respirations, skin warm/dry/pink. pain 8/10 from 03/16. 19:00 Reassessment: Patient appears in no apparent distress at this time. Patient and/or iw family updated on plan of care and expected duration. Pain level reassessed. Patient is alert, oriented x 3, equal unlabored respirations, skin warm/dry/pink. Patient states feeling better. Patient states symptoms have improved. 19:30 General: Appears comfortable, Behavior is calm, cooperative. Pain: Complains of pain in ha1 right low back and posterior aspect of right lateral abdomen Pain does not radiate. Pain currently is 6 out of 10 on a pain scale. Pain began suddenly. Neuro: Level of Consciousness is awake, alert, obeys commands, Oriented to person, place, time, situation. Respiratory: Airway is patent Respiratory effort is even, unlabored, Respiratory pattern is regular, symmetrical. GI: Abdomen is flat, non-distended, Reports lower abdominal pain. : Urine is clear, Reports difficulty urinating. Musculoskeletal: Circulation, motion, and sensation intact. Range of motion: intact in all extremities. 20:30 Reassessment: Patient and/or family updated on plan of care and expected duration. Pain ha1 level reassessed. Patient is alert, oriented x 3, equal unlabored respirations, skin warm/dry/pink. 21:30 Reassessment: Patient and/or family updated on plan of care and expected duration. Pain ha1 level reassessed. Patient is alert, oriented x 3, equal unlabored respirations, skin warm/dry/pink. Patient states feeling better. Patient states symptoms have improved. Vital Signs: 14:37 BP 137 / 93; Pulse 69; Resp 18; Temp 98.3; Pulse Ox 100% ; Weight 74.84 kg; Height 5 hb ft. 5 in. ; Pain 10/10; 17:17 BP 122 / 87; Pulse 80; Resp 16; Pulse Ox 99% on R/A; hb 20:00 BP 109 / 48; Pulse 68; Resp 15 S; Pulse Ox 100% on R/A; ha1 20:30 BP 105 / 67; Pulse 60; Resp 15 S; Pulse Ox 100% on R/A; ha1 20:35 BP 109 / 48; Pulse 60; Resp 16 S; Pulse Ox 100% on R/A; ha1 14:37 Body Mass Index 27.46 (74.84 kg, 165.1 cm) hb 14:37 Pain Scale: Adult hb ED Course: 14:03 Patient arrived in ED. ts1 14:03 Leah Frye FNP is PHCP. jh7 14:03 Russell Kuo MD is Attending Physician. jh7 14:38 Triage completed. hb 14:38 Arm band placed on. hb 15:43 Carmen Messer, RN is Primary Nurse. vg1 16:00 No provider procedures requiring assistance completed. Initial lab(s) drawn, by ok, vg1 sent to lab. Inserted saline lock: 20 gauge in right antecubital area, using aseptic technique. Blood collected. 16:08 Patient has correct armband on for positive identification. Bed in low position. Call vg1 light in reach. Side rails up X 1. 16:19 Radiology exam delayed due to test not completed at this time. mw3 17:35 CT Abd/Pelvis - IV Contrast Only In Process Unspecified. EDMS 20:52 XRAY KUB In Process Unspecified. EDMS 21:36 IV discontinued, intact, bleeding controlled, No redness/swelling at site. Pressure ha1 dressing applied. Administered Medications: 16:00 Drug: NS 0.9% IV 1000 ml Route: IV; Rate: 1 bolus; Site: right antecubital; vg1 17:17 Follow up: IV Status: Completed infusion; IV Intake: 1000ml hb 16:00 Drug: Ondansetron IVP 4 mg Route: IVP; Site: right antecubital; vg1 17:18 Follow up: Response: No adverse reaction; Marked relief of symptoms hb 16:02 Drug: morphine IVP or IV 4 mg Route: IVP; Infused Over: 4 mins; Site: right antecubital;vg1 16:32 Follow up: Response: No adverse reaction; No change in condition vg1 16:33 Drug: HYDROmorphone IVP 1 mg Route: IVP; Site: right antecubital; vg1 17:17 Follow up: Response: No adverse reaction; Pain is decreased hb 18:22 Drug: Promethazine IVP 12.5 mg Route: IVP; Site: right antecubital; iw 18:22 Drug: Ketorolac IVP 30 mg Route: IVP; Site: right antecubital; iw 18:23 Drug: NS 0.9% IV 1000 ml Route: IV; Rate: 1 bolus; Site: right antecubital; iw 18:23 Drug: Rocephin IV 1 grams Route: IV; Rate: 1 calculated rate; Site: right antecubital; iw 21:22 Drug: Flomax PO 0.4 mg Route: PO; ha1 21:36 Follow up: Response: No adverse reaction ha1 Medication: 16:08 VIS not applicable for this client. vg1 Intake: 17:17 IV: 1000ml; Total: 1000ml. hb Outcome: 21:20 Discharge ordered by MD. snw 21:35 Discharged to home ambulatory. ha1 21:35 Condition: stable 21:35 Discharge instructions given to patient, Instructed on discharge instructions, follow up and referral plans. medication usage, Demonstrated understanding of instructions, follow-up care, medications. 21:36 Patient left the ED. ha1 Signatures: Dispatcher [employer] EDMS Yvette Sánchez FNP-C [employer] Jeny Miller, TEGAN JAVED Hanny Bajwa RN RN Leticia Tam mw3 Carmen Messer RN RN 1 Leah Frye FNP FNP [facility] Alexia Samson RN RN ha1 Amna Patel, LILA PAS ts1 Corrections: (The following items were deleted from the chart) 19:22 17:17 Reassessment: Patient appears in no apparent distress at this time. Patient vg1 and/or family updated on plan of care and expected duration. Pain level reassessed. Patient is alert, oriented x 3, equal unlabored respirations, skin warm/dry/pink. pain 8/10 from 10 hb
[2022-10-24] MEDS ORDERED: TAMSULOSIN 0.4 MG SR CAP ONE (21:26)
[2022-10-24 22:11] VITALS: TEMP 98.3
[2022-10-24 22:14] VITALS: O2SAT 100
[2022-10-24 22:16] VITALS: BP 109/48
== END 2022-10-24 21:36 | disposition home or self-care (01) ==
LOC: ER 14:01
DX: N13.2 Hydronephrosis with renal and ureteral calculous obstruction (principal); N39.0 Urinary tract infection, site not specified
CPT/HCPCS: 87088; 85025; 81001; 87086; 36415; 84703; 81025; 83690; 80053; 74177; 74018; Q9967; J2550; J1170; J2405; J7030 ×2; J0696

== ENCOUNTER 2022-10-26 22:49 | Emergency (ER) | payer OTHER ==
--- OUTSIDE RECORDS SUMMARY | 2022-10-26 22:52 | XMS REPORT | Continuity of Care Document ---
:2000 Author Organization [facility] t Address [address] [facility] [address] [place] [address] Care Team Providers Name Role Phone VICKY ANAND Primary Care Physician Unavailable VICKY ANAND Attending Clinician Unavailable Vicky Oliveros Attending Clinician Moustapha Engle MD Attending Clinician Hossein Jean Baptiste MD Attending Clinician Estephania Teran MD, Leonard Attending Clinician ESPERANZA APPIAH Attending Clinician Unavailable Esperanza Appiah MD Attending Clinician JAMIE CONTE Attending Clinician Unavailable Provider, Roroleonidas Temp Attending Clinician Unavailable [place] Jamie SLOAN Attending Clinician [phone] Ultrasound, Huong Mfm Attending Clinician Unavailable Tami Gee MD Attending Clinician [phone] TAMI GEE Attending Clinician Unavailable Ultrasound, AngRickey Attending Clinician Unavailable Doctor Unassigned, [place] Attending Clinician Unavailable Moustapha Engle MD Admitting Clinician MOUSTAPHA ENGLE Admitting Clinician Unavailable ESPERANZA APPIAH Admitting Clinician Unavailable Esperanza Appiah MD Admitting Clinician Payers Payer Name Policy Type Policy Number Effective Date Expiration Date Pietro luque [facility] [id number] 2021 [place] 00:[place]:00 [place] [facility] [id number] 2021 HEALTH 00:00:00 MEDICAID PENDING PENDING 2020 00:00:00 [place] [id number] 2017 00:00:00 Problems Condition Condition Condition Status [...] ity of 30-39.9) 30-39.9) 00:00: [place] 00 [facility] Branch Vacuum-ass Vacuum-ass Disease Active U nivers isted isted 2-25 ity of vaginal vaginal 00:00: [place] [facility] Normal Normal Disease Active Univers labor labor 2-24 ity of 00:00: [place] 00 [facility] Branch COVID-19 COVID-19 Disease Active Unive rs virus IgG virus IgG 2-23 ity of antibody antibody 00:00: [place] detected detected 00 [facility] BMI BMI Disease Active 2020-06 Univers 25.0-25.9, 25.0-25.9, 2-20 it y of adult adult 00:00: [place] 00 [facility] Branch Rubella Rubella Disease Active Overview: Univ ers non-immune non-immune 12-17 Formattin ity of status, status, 00:00: g of this [place] antepartum antepartum 00 note Me dical might [...] third third 00:00: [place] trimester trimester 00 [facility] mario Branch Depression Depression Disease Active U nivers , , 7-12 ity of unspecifie unspecifie [place] Medical depression depression Br anch type type Teen Teen Disease Active Univers emotional emotional - ity of problem problem 00:00: [place] 00 [facility] Scabies Scabies Disease Active Univers 4-25 ity of 00:00: [place] [address] Medical Branch Allergies, Adverse Reactions, Alerts Allergy Allergy Status Severity Reaction(s) Onset Inactive Treating Comm ents Source Name Type Date Date Clinician NO KNOWN Drug Active Univers ALLERGIE Class ity of S [facility] Social History Social Habit Start Date Stop Date Quantity Comments Source Exposure to Not sure [facility]-CoV-2 [facility] (event) Branch Alcohol intake 2021-09-15 2021-09-15 Current University of 00:00:00 00:00:00 non-drinker of [facility] alcohol [place] (finding) Tobacco use and 2012-09-20 2012-09-20 Never used Universit y of exposure 00:00:00 00:00:00 [facility] Tobacco Comment 2012-09-20 2012-09-20 Denies smoking Unive rsity of 00:00:00 00:00:00 exposure [facility] Sex Assigned At 2000 2000 Universit y of 00:00:00 00:00:00 [facility] Smoking Status Start Date Stop Date Source Never smoker [facility] Medications Ordered Filled Start Stop Current Ordering Indication Dosage Frequency Signature Comments Components Source Medication Medication Date Date Medication? Clinician (SIG) Name Name ferrous Yes [id number] 325mg Take 1 Uni vers sulfate 325 2-27 tablet by ity of mg (65 mg 00:00: mouth 2 [place] iron) 00 (two) Medical tablet times Branch daily. ibuprofen Yes [id number] 600mg Take 1 U nivers 600 mg 2-27 tablet by ity of tablet 00:00: mouth [place] 00 every 6 Medical (six) Branch hours as needed (Pain). Take with food or milk. 2021- No [id number] 1{tbl} Take 1 Univers vitamin 2-27 04-11 tablet by ity of w/FA tablet 00:00: 00:00 [place] :00 daily. Medical Branch docusate 2021- No [id number] 240mg Take 1 U nivers calcium 240 08-03- capsule by i ty of mg capsule 00:00: 00:00 mouth once [place] 00 :00 daily as Medical needed for Branch Constipati on. Immunizations Ordered Immunization Filled Immunization Date Status Commen ts Source Name Name [facility] 2021-05-12 Completed University of 00:00:00 [facility] TDAP 2013-10-16 Completed University of 00:00:00 [facility] Meningococcal 2013-10-16 Completed University of Polysaccharide 00:00:00 [facility] mario (groups A, C, Y and Branc h W-135) conjugate vaccine (MCV4P) Varicella 2013-10-16 Completed University of (varivax)(chicken 00:00:00 [place] M edical pox) Branch HEPATITIS A 2005-08-04 Completed University of 00:00:00 [facility] HEPATITIS A 2005-01-15 Completed University of 00:00:00 [facility] DTAP 2004-11-04 Completed University of 00:00:00 [facility] Polio (IPV/OPV) 2004-11-04 Completed Universit y of 00:00:00 [facility] MMR 2004-11-04 Completed University of 00:00:00 [facility] Pneumococcal 7 2002-09-04 Completed University of Conjugate, PCV7 00:00:00 [place] Med ical (Prevnar7) Branch DTAP 2001-12-29 Completed University of 00:00:00 [facility] Hep B, Adol or Pedi 2001-12-29 Completed Unive rsity of Dosage 00:00:00 [facility] HIB 4 Dose Schedule 2001-10-13 Completed Unive rsity of 00:00:00 [facility] MMR 2001-10-13 Completed University of 00:00:00 [facility] Polio (IPV/OPV) 2001-10-13 Completed Universit y of 00:00:00 [facility] Varicella 2001-10-13 Completed University of (varivax)(chicken 00:00:00 [place] M edical pox) Branch DTAP 2001-06-01 Completed University of 00:00:00 [facility] HIB 4 Dose Schedule 2001-06-01 Completed Unive rsity of 00:00:00 [facility] Hep B, Adol or Pedi 2001-06-01 Completed Unive rsity of Dosage 00:00:00 [facility] Pneumococcal 7 2001-06-01 Completed University of Conjugate, PCV7 00:00:00 [place] Med ical (Prevnar7) Branch DTAP 2001-03-01 Completed University of 00:00:00 [facility] HIB 4 Dose Schedule 2001-03-01 Completed Unive rsity of 00:00:00 [facility] Pneumococcal 7 2001-03-01 Completed University of Conjugate, PCV7 00:00:00 [place] Med ical (Prevnar7) Branch Polio (IPV/OPV) 2001-03-01 Completed Universit y of 00:00:00 [facility] DTAP 2000 Completed University of 00:00:00 [facility] HIB 4 Dose Schedule 2000 Completed Unive rsity of 00:00:00 [facility] Pneumococcal 7 2000 Completed University of Conjugate, PCV7 00:00:00 [place] Med ical (Prevnar7) Branch Polio (IPV/OPV) 2000 Completed Universit y of 00:00:00 [facility] Hep B, Adol or Pedi 2000 Completed Unive rsity of Dosage 00:00:00 [facility] Vital Signs Vital Name Observation Time Observation Value Comments Source Systolic blood 2021-09-15 18:19:00 115 mm[Hg] Univer sity of pressure [facility] Diastolic blood 2021-09-15 18:19:00 73 mm[Hg] Unive rsity of pressure [facility] Heart rate 2021-09-15 18:19:00 70 /min [facility] Body temperature 2021-09-15 18:19:00 35.89 Ernestine [facility] Respiratory rate 2021-09-15 18:19:00 16 /min [facility] Body height 2021-09-15 18:19:00 162.6 cm [facility] Body weight 2021-09-15 18:19:00 66.543 kg [facility] BMI 2021-09-15 18:19:00 25.18 kg/m2 [facility] Procedures This patient has no known procedures. Encounters Start End Encounter Admission Attending Care Care Encounter Source Date/Time Date/Time Type Type Clinicians Facility Department ID 2022-09-15 2022-09-15 Outpatient Erin ANAND [facility] [id number] Univers 13:00:00 13:00:00 VICKY rodriguez [facility] 2021-09-15 2021-09-15 Outpatient Erin ANAND [facility] [id number] Univers 13:00:00 13:57:48 VICKY rodriguez [facility] 2021-09-15 2021-09-15 [facility] 1.2.840.114 [id number] Univers 13:00:00 13:57:48 Visit Vicky Erin INNER LAYER SCRUBBER TENDER [id number] ity of [facility] [id number] [place] as MATERNAL [id number] Med ical & CHILD [address] [place] [address] 2021-09-15 2021-09-15 Outpatient Erin ANAND [facility] [id number] Univers 13:00:00 13:57:48 VICKY rodriguez [facility] 2021-08-26 2021-08-26 Outpatient Erin ANAND [facility] [id number] Univers 11:00:00 11:00:00 VICKY rodriguez [facility] 2021-08-08 2021-08-08 Outpatient Erin ANAND [facility] [id number] Univers 10:30:00 10:30:00 VICKY rodriguez [facility] 2021-07-31 2021-08-03 [facility] Moustapha Engle [facility] 1.2.840.114 [id number] Univers 19:18:00 17:15:00 Encounter JHON [id number] ity of [place] 4.2.7.2.686 [facility] [id number] [address] 2021-08-01 2021-08-01 Anesthesia Hossein Jean Baptiste [facility] 1.2 .840.114 [id number] Univers 08:22:00 18:09:00 Event Fernie Best [id number] ity of [place] 4.2.7.2.686 [facility] [id number] [address] 2021-07-30 2021-07-30 [facility]ine [facility] 1.2.840.114 [id number] Univers 09:00:00 09:15:00 Roshunda R INNER LAYER SCRUBBER TENDER [id number] ity of Visit [facility] 4.2.7.2.686 [place] MATERNAL [id number] [facility] ical & CHILD [address] [place] [address] 2021-07-30 2021-07-30 [facility] [id number] Univers 09:00:00 09:00:00 ROSHUNDA ity o f [facility] 2021-07-30 2021-07-30 [facility] [id number] Univers 09:00:00 09:00:00 ROSHUNDA ity o f [facility] 2021-07-27 2021-07-27 Outpatient [facility] [id number] Univers 20:57:00 22:17:00 ESPERANZA staton of [facility] 2021-07-27 2021-07-27 [facility] 1.2.840.114 [id number] Univers 20:57:00 22:17:00 Encounter Esperanza Franco [place] 350.1.13.10 ity [facility] 4.2.7.2.686 [place] [id number] [address] 2021-07-23 2021-07-23 Outpatient R [facility] [id number] Univers 13:30:00 13:30:00 ity of [facility] 2021-07-22 2021-07-22 Outpatient Erin ANAND [facility] [id number] Univers 12:45:00 13:23:40 ROSHUNDA ity o f [facility] 2021-07-22 2021-07-22 Routine [facility] 1.2.840.114 [id number] Univers 12:45:00 13:23:40 Roshunda R INNER LAYER SCRUBBER TENDER 350.1.13.10 ity of Visit [facility] 4.2.7.2.686 [place] MATERNAL [id number] [facility] & CHILD [address] [place] [address] 2021-07-22 2021-07-22 [facility] [id number] Univers 12:45:00 12:45:00 BANNDA brionna o [facility] [place] [facility] 2021-07-15 2021-07-15 Outpatient Erin ANAND [facility] [id number] Univers 13:00:00 13:00:00 BANNDA brionna o [facility] [place] [facility] 2021-07-14 2021-07-14 [facility] [id number] Univers 13:15:00 13:15:00 BANNDRayo staton o [facility] [place] [facility] 2021-07-09 2021-07-09 [facility]phone [facility] [id number] Univers 00:00:00 00:00:00 Roshunda R INNER LAYER SCRUBBER TENDER 350.1.13.10 ity of REGIONAL 4.2.7.2.686 [place] MATERNAL [id number] [facility] & CHILD [address] [place] [address] 2021-07-08 2021-07-08 Outpatient Erin ANAND [facility] [id number] Univers 12:45:00 13:40:40 BANNDA brionna o [facility] [place] [facility] 2021-07-08 2021-07-08 [facility] [id number] Univers 12:45:00 13:40:40 BANNDA brionna o [facility] [place] [facility] 2021-07-08 2021-07-08 [facility]ine [facility] 1.2.840.114 [id number] Univers 12:45:00 13:40:40 Roshunda R INNER LAYER SCRUBBER TENDER 350.1.13.10 ity of Visit REGIONAL 4.2.7.2.686 [place] MATERNAL [id number] [facility] & CHILD [address] [place] [address] 2021-06-24 2021-06-24 [facility] [id number] Univers 15:15:00 16:06:46 ROSHUNDA ity o [facility] [place] [facility] 2021-06-24 2021-06-24 [facility]ine [facility] 1.2.840.114 [id number] Univers 15:15:00 16:06:46 Roshunda R INNER LAYER SCRUBBER TENDER 350.1.13.10 ity of Visit REGIONAL 4.2.7.2.686 [place] MATERNAL [id number] Med ical & CHILD [address] [place] [address] 2021-06-09 2021-06-09 Outpatient Erin ANAND [facility] [id number] Univers 08:15:00 08:41:14 VICKY staton o michael [facility] 2021-05-26 2021-05-26 Outpatient Erin ANAND [facility] [id number] Univers 09:30:00 10:08:32 VICKY staton o [facility] [place] [facility] 2021-05-26 2021-05-26 [facility]ine [facility] 1.2.840.114 [id number] Univers 09:30:00 10:08:32 Vicky Khan INNER LAYER SCRUBBER TENDER 350.1.13.10 ity of Visit [facility] 4.2.7.2.686 [place] MATERNAL [id number] [facility] & CHILD [address] [place] [address] 2021-05-12 2021-05-12 Outpatient Erin [facility] [id number] Univers 09:00:00 09:36:19 JAMIE dorsey [facility] [place] [facility] 2021-05-12 2021-05-12 Routine Provider, RoroRmchdebbie [facility] 1 .2.840.114 [id number] Univers 08:53:01 09:36:19 Jamie Conte INNER LAYER SCRUBBER TENDER 350.1.13 .10 ity of Visit REGIONAL 4.2.7.2.686 [place] MATERNAL [id number] [facility] & CHILD [address] [place] [address] 2021-04-16 2021-04-16 Telephone [facility] 1.2.840.114 [id number] Univers 00:00:00 00:00:00 Nellieridariusz Dorsey INNER LAYER SCRUBBER TENDER 350.1.13.10 ity of REGIONAL 4.2.7.2.686 [place] MATERNAL [phone] [facility] & CHILD [address] [place] [address] 2021-04-14 2021-04-14 Outpatient Erin [facility] [id number] Univers 09:00:00 09:25:37 JAMIE staton o [facility] [place] [facility] 2021-04-14 2021-04-14 Routine Provider, Cait Shankar [facility] 1 .2.840.114 [id number] Univers 08:59:03 09:25:37 Jamie Conte O INNER LAYER SCRUBBER TENDER 350.1.13 .10 ity of Visit [facility] 4.2.7.2.686 [place] MATERNAL [id number] [facility] & CHILD [address] [place] [address] 2021-04-03 2021-04-03 Steel Worker Ultrasound, Adc [facility] 1.2 .840.114 [id number] Univers 13:05:18 14:05:18 Visit Tami Gee Stormydariusz [place] 350.1 .13.10 ity of [facility] 4.2.7.2.686 [place] [id number] [place] [address] 2021-04-03 2021-04-03 Outpatient P MARLEN [facility] [id number] Univers 13:00:00 13:00:00 CHASEY ity [facility] 2021-03-20 2021-03-20 Outpatient P [facility] [id number] Univers 08:00:00 08:00:00 ity [facility] 2021-03-12 2021-03-12 Routine Provider, Cait Shankar [facility] 1 .2.840.114 [id number] Univers 09:57:49 10:51:56 Jamie Conte O INNER LAYER SCRUBBER TENDER 350.1.13 .10 ity of Visit REGIONAL 4.2.7.2.686 [place] as MATERNAL [id number] [facility] & CHILD [address] [place] [address] 2021-03-12 2021-03-12 Outpatient R [facility] [id number] Univers 10:00:00 10:00:00 ity [facility] 2021-02-11 2021-02-11 Routine Kika [facility] 1.2.840.114 [id number] Univers 07:55:38 08:10:38 Roshunda R INNER LAYER SCRUBBER TENDER 350.1.13.10 ity of Visit [facility] 4.2.7.2.686 [place] as MATERNAL [phone] [facility] & CHILD [address] [place] [address] 2021-02-11 2021-02-11 Outpatient R KIKA [facility] [id number] Univers 08:00:00 08:00:00 ROSHUNDA ity o f [facility] 2021-01-28 2021-01-28 Steel Worker Ultrasound, [facility] 1.2 .840.114 [id number] Univers 15:35:10 16:05:10 Visit Marlen Brunomaria del rosario Thakur INNER LAYER SCRUBBER TENDER 350.1. 13.10 ity of REGIONAL 4.2.7.2.686 [place] MATERNAL [id number] Med ical & CHILD [address] [place] [address] 2021-01-28 2021-01-28 Steel Worker Ultrasound, [facility] 1.2 .840.114 [id number] Univers 15:35:10 16:05:10 Visit Tami Gee INNER LAYER SCRUBBER TENDER 350.1. 13.10 ity of REGIONAL 4.2.7.2.686 [place] MATERNAL [id number] Med ical & CHILD [address] [place] [address] 2021-01-28 2021-01-28 Outpatient P [facility] [id number] Univers 15:45:00 15:45:00 ity of [facility] 2021-01-28 2021-01-28 Outpatient P [facility] [id number] Univers 14:00:00 14:00:00 ity of [facility] 2021-01-28 2021-01-28 Abstract KikaPIGEON, UTRAVINDER 1.2.840.114 [id number] Univers 00:00:00 00:00:00 Sadea R INNER LAYER SCRUBBER TENDER 350.1.13.10 ity of REGIONAL 4.2.7.2.686 [place] MATERNAL [id number] [facility] ical & CHILD [address] [place] [address] 2021-01-28 2021-01-28 Abstract Kika MARAVINDER 1.2.840.114 [id number] Univers 00:00:00 00:00:00 Rosperlanda R INNER LAYER SCRUBBER TENDER 350.1.13.10 ity of REGIONAL 4.2.7.2.686 [place] as MATERNAL [id number] Med ical & CHILD [address] [place] [address] 2021-01-13 2021-01-[address] [facility] 1.2.840.114 [id number] Univers 08:30:31 08:58:34 Roshunda R INNER LAYER SCRUBBER TENDER 350.1.13.10 ity of Visit [facility] 4.2.7.2.686 [place] as MATERNAL [id number] [address] 2021-01-13 2021-01-13 Outpatient R [facility] [id number] Univers 08:45:00 08:45:00 ROSHUNDA ity o f [facility] 2020-12-16 2020-12-[address] [facility] 1.2.840.114 [id number] Univers 08:43:48 10:22:01 Rosperlanda R INNER LAYER SCRUBBER TENDER 350.1.13.10 ity of Visit [facility] 4.2.7.2.686 [place] as MATERNAL [id number] [address] 2020-12-16 2020-12-16 Outpatient R [facility] [id number] Univers 08:30:00 08:30:00 ity of [facility] 2020-12-16 2020-12-16 Orders Doctor EDDI 1.2.840.114 [id number] Univers 00:00:00 00:00:00 Only Unassigned, ARLEEN 350.1.13.[address] [place] [facility] 4.2.7.2.686 [place] as [phone] [place] [address] Branch Results This patient has no known results.
[2022-10-27] MEDS ORDERED: NA CHLORIDE 0.9% 1,000 ML ONE (01:11)
[2022-10-27] MEDS ORDERED: CEFTRIAXONE 1000 MG/VIAL ONE (01:11)
[2022-10-27] MEDS ORDERED: ACETAMINOPHEN 325 MG TABLET ONE (01:11)
[2022-10-27 01:12] LABS: Absolute Lymphocytes (CBC) 1.9 K/uL (0.7-4.9); Hematocrit 43.5 % (36.0-45.0); Lymphocytes % 12.2 % (15.3-44.8); MCV 96.5 fL (80-100); MPV 9.2 fL (7.6-11.3)
[2022-10-27 01:24] LABS: Albumin 3.9 g/dL (3.4-5.0); Bilirubin Total 0.6 mg/dL (0.2-1.0); Potassium 3.1 mEq/L (3.5-5.1); Protein, Total 8.9 g/dL (6.4-8.2)
[2022-10-27] MEDS ORDERED: HYDROMORPHONE HCL 0.5 MG/0.5 ML INJ ONE (01:31)
[2022-10-27] MEDS ORDERED: ONDANSETRON 4 MG/2 ML VIAL ONE (01:31)
--- NOTE | 2022-10-27 04:22 | ER ---
Nurse's Notes [facility] Cornelio Name: Deisy Jimenez Age: 22 yrs Sex: Female : 2000 Arrival Date: 10/26/2022 Time: 22:49 Bed 16 Private MD: Diagnosis: Pyelonephritis acute;Acute pyelonephritis without nephrolithiasis, acute febrile illness Presentation: 10/26 23:05 Chief complaint: Patient states: right side pain and fever seen two days ago diagnosed kl with kidney stone and UTI took 1 dose antibiotic. Coronavirus screen: Vaccine status: Patient reports being unvaccinated. Ebola Screen: Patient negative for fever greater than or equal to 101.5 degrees Fahrenheit, and additional compatible Ebola Virus Disease symptoms. Initial Sepsis Screen: Does the patient meet any 2 criteria? HR > 90 bpm. Does the patient have a suspected source of infection? Yes: Dysuria/Frequency/Urgency/UTI. Risk Assessment: Do you want to hurt yourself or someone else? Patient reports no desire to harm self or others. 23:05 Method Of Arrival: Ambulatory kl 23:05 Acuity: AHMET 3 kl Triage Assessment: 23:09 General: Appears uncomfortable, Behavior is cooperative, anxious. Pain: Complains of kl pain in anterior aspect of right lateral abdomen and chest Pain currently is 9 out of 10 on a pain scale. Historical: - Allergies: 23:08 No Known Allergies; kl - Home Meds: 23:08 Augmentin ES-600 Oral [Active]; meloxicam oral [Active]; Flomax Oral [Active]; kl - PSHx: 23:08 None; kl - Immunization history:: Adult Immunizations not up to date. - Social history:: Smoking status: Reported history of juuling and/or vaping. - Family history:: not pertinent. Screenin/23 05:11 [facility] ED Fall Risk Assessment (Adult) History of falling in the last 3 months, jb4 including since admission No falls in past 3 months (0 pts) Confusion or Disorientation No (0 pts) Score/Fall Risk Level 0 - 2 = Low Risk Oriented to surroundings, Maintained a safe environment. Abuse screen: Denies threats or abuse. Nutritional screening: No deficits noted. Tuberculosis screening: No symptoms or risk factors identified. Assessment: 00:15 General: Appears in no apparent distress. uncomfortable, Behavior is calm, cooperative, jb4 appropriate for age. Pain: Complains of pain in mid back area Pain radiates to right upper quadrant Pain currently is 8 out of 10 on a pain scale. Neuro: Level of Consciousness is awake, alert, obeys commands, Oriented to person, place, time, situation. Cardiovascular: Patient's skin is warm and dry. Respiratory: Airway is patent Respiratory effort is even, unlabored, Respiratory pattern is regular, symmetrical. GI: No signs and/or symptoms were reported involving the gastrointestinal system. : No signs and/or symptoms were reported regarding the genitourinary system. EENT: No signs and/or symptoms were reported regarding the EENT system. Derm: Skin is intact, Skin is pink, warm \T\ dry. Musculoskeletal: Circulation, motion, and sensation intact. Range of motion: intact in all extremities. 01:41 Reassessment: Patient appears in no apparent distress at this time. Patient and/or jb4 family updated on plan of care and expected duration. Pain level reassessed. Patient is alert, oriented x 3, equal unlabored respirations, skin warm/dry/pink. 03:00 Reassessment: Patient appears in no apparent distress at this time. Patient and/or jb4 family updated on plan of care and expected duration. Pain level reassessed. Patient is alert, oriented x 3, equal unlabored respirations, skin warm/dry/pink. 04:00 Reassessment: Patient appears in no apparent distress at this time. Patient and/or jb4 family updated on plan of care and expected duration. Pain level reassessed. Patient is alert, oriented x 3, equal unlabored respirations, skin warm/dry/pink. 05:10 Reassessment: Patient appears in no apparent distress at this time. Patient and/or jb4 family updated on plan of care and expected duration. Pain level reassessed. Patient is alert, oriented x 3, equal unlabored respirations, skin warm/dry/pink. D/c pending ride home. Vital Signs: 10/26 23:05 BP 122 / 85; Pulse 113; Resp 18; Temp 100.5(TE); Pulse Ox 100% on R/A; Height 5 ft. 4 kl in. ; Pain 9/10; 10/27 01:41 BP 91 / 70; Pulse 88; Resp 16; Pulse Ox 96% on R/A; jb4 03:00 BP 108 / 70; Pulse 75; Resp 16; Pulse Ox 97% on R/A; jb4 03:45 BP 110 / 70; Pulse 74; Resp 16; Temp 99.5(O); Pulse Ox 99% on R/A; jb4 04:30 BP 105 / 92; Pulse 86; Resp 18; Pulse Ox 99% on R/A; jb4 10/26 23:05 Pain Scale: Adult kl ED Course: 10/26 22:53 Patient arrived in ED. ag3 23:04 Vaibhav Kovacs PA is PHCP. jmm 23:04 Anthony Porter MD is Attending Physician. [facility] 23:08 Triage completed. 10/27 00:47 CT Stone Protocol In Process Unspecified. EDMS 00:47 Lipase Sent. jb4 00:47 CMP Sent. jb4 00:47 CBC with Diff Sent. jb4 00:47 Lactate w/ 2H reflex if indic. Sent. jb4 01:01 Pa Flynn, TEGAN is Primary Nurse. jb4 04:21 Jovan Guerrero MD is Referral Physician. sp4 05:11 No provider procedures requiring assistance completed. IV discontinued, intact, jb4 bleeding controlled, No redness/swelling at site. Pressure dressing applied. 05:11 Patient has correct armband on for positive identification. Bed in low position. Call jb4 light in reach. Side rails up X 1. Client placed on continuous cardiac and pulse oximetry monitoring. NIBP monitoring applied. Administered Medications: 01:19 Drug: NS 0.9% IV 1000 ml Route: IV; Rate: 1 bolus; Site: right antecubital; jb4 01:19 Drug: Rocephin IV 1 grams Route: IV; Rate: calculated rate; Site: right antecubital; jb4 01:19 Drug: Acetaminophen PO 650 mg Route: PO; jb4 01:30 Drug: HYDROmorphone IVP 0.5 mg Route: IVP; Site: right antecubital; jb4 01:30 Drug: Ondansetron IVP 4 mg Route: IVP; Site: right antecubital; jb4 04:20 Not Given (Duplicate Order): Rocephin - Rocephin (cefTRIAXone) IVPB 1 grams IVPB once sp4 over 30 mins; (mix in 50 mL NS) 04:37 Drug: morphine IVP or IV 4 mg Route: IVP; Infused Over: 4 mins; Site: right antecubital;jb4 04:37 Not Given (Patient Refused): Dicyclomine IM 20 mg IM once jb4 Outcome: 04:21 Discharge ordered by . sp4 05:54 Discharged to home ambulatory, with family. jb4 05:54 Condition: stable 05:54 Discharge instructions given to patient, Instructed on discharge instructions, follow up and referral plans. Demonstrated understanding of instructions, follow-up care. 05:54 Patient left the ED. jb4 Signatures: Dispatcher [employer] EDNannette Barraza RN RN Vaibhav Saul PA PA jmm Bryson, James, RN RN jb4 Glenna Padron Sergey, MD MD sp4 Corrections: (The following items were deleted from the chart) 05:11 03:45 BP 110 / 70; Pulse 74bpm; Resp 16bpm; Pulse Ox 99% RA; jb4 jb4
--- NOTE | 2022-10-27 04:22 | EDPHYS ---
Physician Documentation [facility] Cornelio Name: Deisy Jimenez Age: 22 yrs Sex: Female : 2000 Arrival Date: 10/26/2022 Time: 22:49 Bed 16 Private MD: ED Physician Anthony Porter HPI: 10/27 03:58 This 22 yrs old Female presents to ER via Ambulatory with complaints of Back sp4 Pain, Fever. 03:58 Patient presents with complaint of back pain and fever.. sp4 04:06 The patient has experienced a previous episode. Patient states she came in here on sp4 10/24/2022 and was diagnosed with kidney stone and UTI with acute ureteral stone on the right side. Patient was given prescriptions for meloxicam, Flomax, Augmentin, and Phenergan and was discharged home. Her pain has intensified after she consumed some alcohol yesterday and she presents now for worsening pain on the right flank. Apparently on 10/24/2022 patient was discovered to have a 5 mm distal right ureteral stone with hydronephrosis associated with UTI. Patient was advised transfer for higher level of care but she has declined and she was sent home.. Historical: - Allergies: 10/26 23:08 No Known Allergies; kl - Home Meds: 23:08 Augmentin ES-600 Oral [Active]; meloxicam oral [Active]; Flomax Oral [Active]; kl - PSHx: 23:08 None; kl - Immunization history:: Adult Immunizations not up to date. - Social history:: Smoking status: Reported history of juuling and/or vaping. - Family history:: not pertinent. ROS: 10/27 04:06 Constitutional: Negative for fever, chills, and weight loss, Eyes: Negative for injury, sp4 pain, redness, and discharge, ENT: Negative for injury, pain, and discharge, Neck: Negative for injury, pain, and swelling, Cardiovascular: Negative for chest pain, palpitations, and edema, Respiratory: Negative for shortness of breath, cough, wheezing, and pleuritic chest pain, Abdomen/GI: Negative for abdominal pain, nausea, vomiting, diarrhea, and constipation, positive for right flank pain Back: Negative for injury and pain, : Negative for injury, bleeding, discharge, and swelling, positive for flank pain on the right MS/Extremity: Negative for injury and deformity, Skin: Negative for injury, rash, and discoloration, Neuro: Negative for headache, weakness, numbness, tingling, and seizure, Psych: Negative for depression, anxiety, Allergy/Immunology: Negative for hives, rash, and allergies Endocrine: Negative for neck swelling, polydipsia, polyuria, polyphagia, and weight changes Hematologic/Lymphatic: Negative for swollen nodes, abnormal bleeding, and unusual bruising Exam: 04:06 Constitutional: This is a well developed, well nourished patient who is awake, alert, sp4 and in no acute distress. Febrile on presentation Head/Face: Normocephalic, atraumatic. Eyes: Pupils equal round and reactive to light, extra-ocular motions intact. Lids and lashes normal. Conjunctiva and sclera are not injected. Cornea within normal limits. Periorbital areas with no swelling, redness, or edema. ENT: Nares patent. No nasal discharge, no septal abnormalities noted. Tympanic membranes are normal and external auditory canals are clear. Oropharynx with no redness, swelling, or masses, exudates, or evidence of obstruction, uvula midline. Mucous membranes moist. Neck: Trachea midline, no thyromegaly or masses palpated, and no cervical lymphadenopathy. Supple, full range of motion without nuchal rigidity, or vertebral point tenderness. No Meningismus. Chest/axilla: Normal chest wall appearance and motion. Nontender with no deformity. No lesions are appreciated. Cardiovascular: Regular rate and rhythm with a normal S1 and S2. No gallops, murmurs, or rubs. Normal PMI, no JVD. No pulse deficits. Respiratory: Lungs have equal breath sounds bilaterally, clear to auscultation and percussion. No rales, rhonchi or wheezes noted. No increased work of breathing, no retractions or nasal flaring. Abdomen/GI: Soft, non-tender, with normal bowel sounds. No distension or tympany. No guarding or rebound. No evidence of tenderness throughout. Back: No spinal tenderness. No costovertebral tenderness. Skin: Warm, dry with normal turgor. Normal color with no rashes, no lesions, and no evidence of cellulitis. MS/ Extremity: Pulses equal, no cyanosis. Neurovascular intact. Full, normal range of motion. Neuro: Awake and alert, GCS 15, oriented to person, place, time, and situation. Cranial nerves II-XII grossly intact. Motor strength 5/5 in all extremities. Sensory grossly intact. Psych: Awake, alert, with orientation to person, place and time. Behavior, mood, and affect are within normal limits Vital Signs: 10/26 23:05 BP 122 / 85; Pulse 113; Resp 18; Temp 100.5(TE); Pulse Ox 100% on R/A; Height 5 ft. 4 kl in. ; Pain 9/10; 10/27 01:41 BP 91 / 70; Pulse 88; Resp 16; Pulse Ox 96% on R/A; jb4 03:00 BP 108 / 70; Pulse 75; Resp 16; Pulse Ox 97% on R/A; jb4 03:45 BP 110 / 70; Pulse 74; Resp 16; Temp 99.5(O); Pulse Ox 99% on R/A; jb4 04:30 BP 105 / 92; Pulse 86; Resp 18; Pulse Ox 99% on R/A; jb4 10/26 23:05 Pain Scale: Adult kl MDM: 10/26 23:15 Patient medically screened. [facility] 10/27 04:06 Differential diagnosis: Acute Hemolysis Cholelithiasis Fatigue sp4 Pyelonephritis. Data reviewed: vital signs, nurses notes, lab test result(s), CBC, electrolytes, hepatic panel, urinalysis, UPT: radiologic studies, CT scan. Consideration of Admission/Observation Patient was admitted/placed on observation. Escalation of care including admission/observation considered. ED course: CT abdomen pelvis without IV contrast has revealed previously noted stones in the right distal ureter and UVJ are no longer present. Right perinephric stranding. Likely sequela from obstructive uropathy. Multiple obstructive stone in the right kidney measuring less than 2 mm. No right hydronephrosis or hydroureter. Nonobstructive stones in the left kidney measuring up to 3 mm. No hydronephrosis out of the ureter. No left ureteral calculi. Previously noted stones in the right distal ureter and UVJ are no longer present. The right perinephric stranding likely sequela from obstructive uropathy. No hydronephrosis. Bilateral nonobstructive nephrolithiasis. Moderate nonspecific fluid in the pelvis. Also present on the prior examination.. . 04:11 ED course: Since today kidney stone in the right distal ureter has resolved but patient sp4 has signs of right-sided pyelonephritis, will administer additional dose of IV Rocephin prior to discharging home. Will advise to continue Augmentin twice a day at home for the remainder of course. At this time no emergent follow-up necessary but patient will be advised to see urologist on nonemergent basis.. 04:20 ED course: Patient was discharged home after she was given IV Rocephin here in ER. sp4 Advised to continue all medications as prescribed on a previous visit on 10/24/2022. 10/26 23:20 Order name: CBC with Diff; Complete Time: :22 [facility] 10/26 23:20 Order name: CMP; Complete Time: : [facility] 10/26 23:20 Order name: Lipase; Complete Time: : [facility] 10/26 23:20 Order name: Lactate w/ 2H reflex if indic.; Complete Time: : [facility] 10/26 23:20 Order name: Blood Culture Adult (2) [facility] 10/26 23:54 Order name: CT Stone Protocol; Complete Time: 15:48 [facility] 10/26 23:20 Order name: IV Saline Lock; Complete Time: 01:01 [facility] 10/26 23:20 Order name: Labs collected and sent; Complete Time: 00:47 [facility] Administered Medications: 01:19 Drug: NS 0.9% IV 1000 ml Route: IV; Rate: 1 bolus; Site: right antecubital; jb4 01:19 Drug: Rocephin IV 1 grams Route: IV; Rate: calculated rate; Site: right antecubital; jb4 01:19 Drug: Acetaminophen PO 650 mg Route: PO; jb4 01:30 Drug: HYDROmorphone IVP 0.5 mg Route: IVP; Site: right antecubital; jb4 01:30 Drug: Ondansetron IVP 4 mg Route: IVP; Site: right antecubital; jb4 04:20 Not Given (Duplicate Order): Rocephin - Rocephin (cefTRIAXone) IVPB 1 grams IVPB once sp4 over 30 mins; (mix in 50 mL NS) 04:37 Drug: morphine IVP or IV 4 mg Route: IVP; Infused Over: 4 mins; Site: right antecubital;jb4 04:37 Not Given (Patient Refused): Dicyclomine IM 20 mg IM once jb4 Disposition Summary: 10/27/22 04:21 Discharge Ordered Location: Home sp4 Problem: new sp4 Symptoms: have improved sp4 Condition: Stable sp4 Diagnosis - Pyelonephritis acute sp4 - Acute pyelonephritis without nephrolithiasis, acute febrile illness sp4 Followup: sp4 - With: Jovan Guerrero MD - When: 7 - 10 days - Reason: Recheck today's complaints Discharge Instructions: - Discharge Summary Sheet sp4 - Pyelonephritis, Adult, [id number] sp4 Forms: - Antibiotic Education sp4 Signatures: Dispatcher [employer] EDNannette Barraza RN RN Vaibhav Saul PA PA jmm Bryson, James, RN RN jb4 Anthony Porter MD MD sp4 Corrections: (The following items were deleted from the chart) 04:12 04:06 Patient states she came in here on 10/24/2022 and was diagnosed with kidney stone sp4 and UTI with acute ureteral stone on the right side. Patient was given prescriptions for meloxicam, Flomax, Augmentin, and Phenergan and was discharged home. Her pain has intensified after she consumed some alcohol yesterday and she presents now for worsening pain on the right flank.. sp4
[2022-10-27] MEDS ORDERED: MORPHINE 4 MG/ML SYR ONE (04:35)
[2022-10-27 06:01] VITALS: TEMP 99.5; O2SAT 99
[2022-10-27 06:03] VITALS: BP 105/92
--- NOTE | 2022-10-27 12:29 | RAD REPORT ---
EXAM DESCRIPTION: Stone Protocol CLINICAL HISTORY: Right flank pain TECHNIQUE: Contiguous axial images obtained through the abdomen and pelvis without IV contrast. Sagi ttal and coronal reformatted images were provided. This exam was performed according to our departmental dose-optimization program, which includes autom ated exposure control, adjustment of the mA and/or kV according to patient size and/or use of iterati ve reconstruction technique. COMPARISON: October 24 FINDINGS: Lung bases: Clear Liver: Unremarkable Gallbladder and biliary system: Unremarkable Pancreas: Unremarkable Spleen: Unremarkable Adrenals: Unremarkable Kidneys: Previously noted stones in the right distal ureter and UVJ are no longer present. Right perinephric stranding, likely sequela from obstructive uropathy. Multiple nonobstructive stone in the right kidney measuring less than 2 mm. There is no right hydronephrosis or hydroureter. Nonobstructive stones in the left kidney, largest measuring approximately 3 mm. No hydronephrosis or hydroureter. No left ureteral calculi. Gl: No obstruction. No appreciable mucosal thickening. Appendix: No findings to suggest acute appendicitis. Urinary bladder: Unremarkable Reproductive: Unremarkable as visualized Lymph nodes: No pathologically enlarged lymph nodes. Peritoneum: Moderate nonspecific fluid in the pelvis, also present on the prior examination.. No free air. Vessels: No abdominal aortic aneurysm. Abdominal wall: Unremarkable Bones: UnremarkableNo acute bony pathology IMPRESSION: 1. Previously noted stones in the right distal ureter and UVJ are no longer present. R ight perinephric stranding, likely sequela from obstructive uropathy. No right hydronephrosis or hydr oureter. 2. Bilateral nonobstructive nephrolithiasis. 3. Moderate nonspecific fluid in the pelvis, also present on the prior examination. Electronically signed by: Rob Lynn MD 10/27/2022 2:27 AM CDT Due to temporary technical issues with the PACS/Fluency reporting system, reports are being signed by the in house radiologists without review as a courtesy to insure prompt reporting. The interpreting radiologist is fully responsible for the content of the report.
== END 2022-10-27 05:54 | disposition home or self-care (01) ==
LOC: ER 22:49
DX: N10 Acute pyelonephritis (principal); Z87.442 Personal history of urinary calculi
CPT/HCPCS: 87040 ×2; 85025; 36415; 83605; 83690; 80053; 76377; 74176; J1170; J2405; J7030; J0696

== ENCOUNTER 2023-10-02 17:15 | Emergency (ER) | payer SELFPAY ==
[2023-10-02] MEDS ORDERED: ONDANSETRON 4 MG/2 ML VIAL ONE (17:49)
[2023-10-02] MEDS ORDERED: FAMOTIDINE 20 MG/2 ML VIAL IV ONE (17:49)
[2023-10-02] MEDS ORDERED: KETOROLAC 30 MG/ML INJ ONE (17:49)
[2023-10-02] MEDS ORDERED: NA CHLORIDE 0.9% 1,000 ML ONE (17:49)
--- NOTE | 2023-10-02 17:58 | RAD REPORT ---
EXAM DESCRIPTION: US - Abdomen Exam Limited - 10/02/2023 5:46 pm CLINICAL HISTORY: ABD PAIN COMPARISON: No comparisons FINDINGS: The gallbladder demonstrates no gallstones. No pericholecystic fluid or gallbladder wall t hickening. The common bile duct is normal measuring 3 mm. The liver demonstrates no findings of intrahepatic biliary dilatation. IMPRESSION: Unremarkable examination.
[2023-10-02 18:03] LABS: Absolute Eosinophils 0.2 K/uL (0-0.5); Absolute Monocytes 0.8 K/uL (0.1-1.3); Basophils % 0.3 % (0-1.3); Hematocrit 35.2 % (36.0-45.0); Hemoglobin 12.1 g/dL (12.0-15.0); Lymphocytes % 17.8 % (15.3-44.8); MCH 33.7 pg (27.0-35.0); MCHC 34.3 g/dL (32.0-36.0); MCV 98.1 fL (80-100); MPV 8.7 fL (7.6-11.3); Monocytes % 7.5 % (3.3-12.3); Neutrophils % 72.4 % (41.7-73.7); Nucleated Red Blood Cells % 0.1 % (0-0); Platelets 238 thou/uL (152-406); RBC Red Blood Cell Count 3.59 M/uL (3.86-4.86); Red Cell Distribution Width 13.1 % (12.1-15.2)
[2023-10-02 18:07] LABS: Specific Gravity 1.023 (1.005-1.030); Urine Bacteria <20 /HPF (<20); Urine Bilirubin NEGATIVE (Negative); Urine Blood 2+ (Negative); Urine Clarity Extremely Turbid (Clear); Urine Color Light-Yellow (Yellow); Urine Culture Reflex Order NOT NEEDED; Urine Glucose NEGATIVE (Negative); Urine Ketones TRACE (Negative); Urine Microscopic Reflex YN ORDER UMIC; Urine Mucus 4+ /HPF (None Seen); Urine Nitrite NEGATIVE (Negative); Urine Protein TRACE (Negative); Urine Urobilinogen Normal (Normal)
[2023-10-02 18:30] LABS: Albumin 4.1 g/dL (3.4-5.0); Albumin/Globulin Ratio 1.1 (1.1-1.8); Bilirubin Total 0.4 mg/dL (0.2-1.0); Globulin 3.9 g/dL (2.3-3.5)
--- NOTE | 2023-10-02 19:06 | RAD REPORT ---
EXAM DESCRIPTION: CT - Stone Protocol - 10/02/2023 6:30 pm CLINICAL HISTORY: Flank pain. Abd pain;Flank pain COMPARISON: Stone Protocol dated 10/27/2022 TECHNIQUE: Axial images were obtained without oral or IV contrast. Lack of contrast limits solid org an and vascular assessment. The [id number] spans the entirety of the system partially obscuring uppermost abdomen and lung bases. Coronal reformatted images were obtained and reviewed. All CT scans are performed using dose optimization technique as appropriate and may include automated exposure control or mA/KV adjustment according to patient size. FINDINGS: The lower lung amaya are clear. Imaged portions of the liver and spleen show no suspicious findings on non-contrast imaging. The panc reas and adrenal glands are normal. No pathologic lymphadenopathy in the abdomen or pelvis. Small caliceal stones are present in both kidneys. No hydronephrosis. No bowel obstruction, free air, free fluid or abscess. Normal appendix noted. No significant bony abnormality. IMPRESSION: Small caliceal stones are present in both kidneys without hydronephrosis.
--- NOTE | 2023-10-02 19:14 | ER ---
Nurse's Notes [facility] Name: Deisy Jimenez Age: 23 yrs Sex: Female : 2000 Arrival Date: 10/02/2023 Time: 17:15 Bed 5 Private MD: Diagnosis: Upper abdominal pain, unspecified Presentation: 10/01 17:28 Chief complaint: Patient states: Right upper abdominal pain for 3-4 days, along with nj1 vaginal bleeding for about a week. Denies nausea, vomiting, diarrhea and fever. 17:28 Coronavirus screen: Vaccine status: Patient reports being unvaccinated. Ebola Screen: nj1 Patient denies travel to an Ebola-affected area in the 21 days before illness onset. Initial Sepsis Screen: Does the patient meet any 2 criteria? No. Patient's initial sepsis screen is negative. Does the patient have a suspected source of infection? No. Patient's initial sepsis screen is negative. Risk Assessment: Do you want to hurt yourself or someone else? Patient reports no desire to harm self or others. Onset of symptoms was September 2023. 17:28 Method Of Arrival: Ambulatory [facility] 17:28 Acuity: AHMET 3 nj1 RN MILITARY: 19:20 Not cm10 Historical: - Allergies: 17:33 No Known Allergies; nj1 - PMHx: 17:33 None; nj1 - Immunization history:: Client reports having NOT received the Covid vaccine. - Infectious Disease History:: Denies. - Social history:: Smoking status: Reported history of juuling and/or vaping. Screenin:45 [facility] ED Fall Risk Assessment (Adult) History of falling in the last 3 months, aa5 including since admission No falls in past 3 months (0 pts) Confusion or Disorientation No (0 pts) Intoxicated or Sedated No (0 pts) Impaired Gait No (0 pts) Mobility Assist Device Used No (0 pt) Altered Elimination No (0 pt) Score/Fall Risk Level 0 - 2 = Low Risk Oriented to surroundings, Maintained a safe environment, Educated pt \T\ family on fall prevention, incl call for assistance when getting out of bed. Abuse screen: Denies threats or abuse. Nutritional screening: No deficits noted. Tuberculosis screening: No symptoms or risk factors identified. Assessment: 17:45 General: Appears uncomfortable, Behavior is calm, cooperative. Pain: Complains of pain aa5 in right upper quadrant Pain currently is 9 out of 10 on a pain scale. Quality of pain is described as sharp, Pain began 3-4 days ago Is intermittent. Neuro: Level of Consciousness is awake, alert, obeys commands, Oriented to person, place, time, situation. Cardiovascular: Heart tones S1 S2 present Patient's skin is warm and dry. Rhythm is regular. Respiratory: Airway is patent Respiratory effort is even, unlabored, Respiratory pattern is regular, symmetrical. GI: Abdomen is flat, non-distended, Bowel sounds present X 4 quads. Abd is soft and non tender X 4 quads. Patient currently denies diarrhea, nausea, vomiting. : Reports vaginal bleeding that is moderate flow, since 1 week ago. EENT: No signs and/or symptoms were reported regarding the EENT system. Derm: Skin is pink, warm \T\ dry. Musculoskeletal: Range of motion: intact in all extremities. 18:15 Reassessment: Patient is alert, oriented x 3, equal unlabored respirations, skin aa5 warm/dry/pink. 19:30 Reassessment: Assumed care of patient at this time. Pt currently resting on stretcher. cm10 Pt made aware that she will be getting discharged soon. Pt A\T\Ox4, respirations even and unlabored. 19:30 Respiratory: No deficits noted. Airway is patent Respiratory effort is even, unlabored, cm10 Respiratory pattern is regular, symmetrical. 19:30 Neuro: No deficits noted. Level of Consciousness is awake, alert, obeys commands, cm10 Oriented to person, place, time, situation. Vital Signs: 17:28 BP 126 / 80; Pulse 71; Resp 16; Temp 98.7(O); Pulse Ox 100% on R/A; Weight 50.35 kg nj1 (M); Height 5 ft. 4 in. ; Pain 9/10; 19:20 BP 116 / 78; Pulse 66; Resp 18; Pulse Ox 100% on R/A; cm10 17:28 Body Mass Index 19.05 (50.35 kg, 162.56 cm) [facility] 17:28 Pain Scale: Adult [facility] ED Course: 17:20 Patient arrived in ED. im 17:21 Kelly Allen FNP-C is PHCP. kb 17:21 Santos Fay MD is Attending Physician. kb 17:33 Triage completed. nj1 17:34 Arm band placed on right wrist. nj1 17:45 Patient has correct armband on for positive identification. Placed in gown. Bed in low aa5 position. Call light in reach. Side rails up X 1. 17:48 Abdomen Limited US In Process Unspecified. EDMS 17:48 Inserted saline lock: 20 gauge in right antecubital area, using aseptic technique. nj1 Blood collected. 17:58 Raegan Perez, TEGAN is Primary Nurse. aa5 18:32 CT Stone Protocol In Process Unspecified. EDMS 19:05 Report given to TEGAN Cates and TEGAN Hale. aa5 19:44 No provider procedures requiring assistance completed. IV discontinued, intact, cm10 bleeding controlled, No redness/swelling at site. Pressure dressing applied. 19:45 Provided Education on: Follow-up instructions. cm10 Administered Medications: 17:53 Drug: Ondansetron IVP 4 mg IVP once; over 2 minutes Route: IVP; Site: right antecubital;aa5 18:15 Follow up: Response: No adverse reaction aa5 17:55 Drug: NS 0.9% IV 1000 ml IV at 1 bolus Per protocol; 1000 mL bolus Route: IV; Rate: 1 aa5 bolus; Site: right antecubital; 19:00 Follow up: IV Status: Completed infusion; IV Intake: 1000ml cm10 19:45 Follow up: Response: No adverse reaction cm10 17:55 Drug: Famotidine IVP 20 mg IVP once; dilute with 10 mL 0.9% NaCl; give over 2 minutes aa5 Route: IVP; Site: right antecubital; 18:15 Follow up: Response: No adverse reaction aa5 18:12 Drug: TORadol - Ketorolac IVP 15 mg IVP once Route: IVP; Site: right antecubital; aa5 18:15 Follow up: Response: No adverse reaction aa5 19:40 Drug: morphine IVP or IV 2 mg IVP once over 4 mins Route: IVP; Infused Over: 4 mins; cm10 Site: right antecubital; 19:40 Follow up: Response: No adverse reaction; Medication administered at discharge. cm10 Medication: 19:45 VIS not applicable for this client. cm10 Intake: 19:00 IV: 1000ml; Total: 1000ml. cm10 Outcome: 19:14 Discharge ordered by . dre 19:44 Discharged to home ambulatory, with family, cm10 19:44 Condition: good 19:44 Discharge instructions given to patient, Instructed on discharge instructions, follow up and referral plans. medication usage, Demonstrated understanding of instructions, follow-up care, medications, Prescriptions given X 1, 19:45 Patient left the ED. cm10 Signatures: Dispatcher [employer] EDMS Kelly Allen, DARIN-Sidney WEBSTER-Raegan Vergara, RN RN aa5 Kellen Law RN RN nj1 Yael Goldsmith Clarissa RN RN cm10 Corrections: (The following items were deleted from the chart) 18:09 17:45 Pain: Complains of pain in right upper quadrant Pain currently is 9 out of 10 on aa5 a pain scale. Quality of pain is described as sharp, Pain began 1 week ago Is intermittent, aa5 18:09 17:45 : Reports vaginal bleeding that is moderate flow, aa5 aa5 19:44 19:30 Reassessment: Assumed care of patient at this time. Pt currently resting on cm10 stretcher. Pt made aware that she will be getting discharged soon. Pt A\T\Ox4, respirations even and unlabored. cm10
--- NOTE | 2023-10-02 19:14 | EDPHYS ---
Physician Documentation [facility] Name: Deisy Jimenez Age: 23 yrs Sex: Female : 2000 Arrival Date: 10/02/2023 Time: 17:15 Bed 5 Private MD: ED Physician Santos Fay HPI: 10/01 17:28 This 23 yrs old Female presents to ER via Unassigned with complaints of kb Abdominal Pain, Upper back pain. 17:28 Pt is a 23 year old female who presents for RUQ pain that started 3-4 days ago. Reports kb pain radiates to back and she has pain up to right shoulder. Denies n/v/d/f. Pain worse with palpation. States pain has been constant whether she eats or not. 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 - Infectious Disease History:: Denies. - Social history:: Smoking status: Reported history of juuling and/or vaping. ROS: 17:28 Constitutional: As per HPI kb Exam: 17:28 Constitutional: This is a well developed, well nourished patient who is awake, alert, kb and in no acute distress. Head/Face: Normocephalic, atraumatic. ENT: Moist Mucous membranes Cardiovascular: Regular rate Respiratory: Respirations even and unlabored. No increased work of breathing. Talking in full sentences Skin: Warm, dry with normal turgor. Normal color. MS/ Extremity: Pulses equal, no cyanosis. Neurovascular intact. Full, normal range of motion. Neuro: Awake and alert, GCS 15, oriented to person, place, time, and situation. Moves all extremities. Normal gait. 17:28 Abdomen/GI: Inspection: abdomen appears normal, Bowel sounds: normal, Palpation: soft, in all quadrants, moderate abdominal tenderness, in the right upper quadrant, 17:28 Back: pain, that is moderate, of the right mid back, ROM is normal, Vital Signs: 17:28 BP 126 / 80; Pulse 71; Resp 16; Temp 98.7(O); Pulse Ox 100% on R/A; Weight 50.35 kg nj1 (M); Height 5 ft. 4 in. ; Pain 9/10; 19:20 BP 116 / 78; Pulse 66; Resp 18; Pulse Ox 100% on R/A; cm10 17:28 Body Mass Index 19.05 (50.35 kg, 162.56 cm) [facility] 17:28 Pain Scale: Adult nj1 MDM: 17:21 Patient medically screened. kb 17:28 Data reviewed: vital signs, nurses notes. kb 17:28 Differential diagnosis: cholecystitis, Cholelithiasis, non-specific abd pain, kb Pyelonephritis, Ureterolithiasis, urinary tract infection. 10/01 17:28 Order name: CBC with Diff; Complete Time: 18:19 kb 10/01 17:28 Order name: CMP; Complete Time: 18:47 kb 10/01 17:28 Order name: Lipase; Complete Time: 18:47 kb 10/01 17:28 Order name: Test, Urine; Complete Time: 18:19 kb 10/01 17:28 Order name: Urinalysis w/ reflexes; Complete Time: 18:19 kb 10/01 17:28 Order name: Abdomen Limited US; Complete Time: 18:03 kb 10/01 18:19 Order name: CT Stone Protocol; Complete Time: 19:09 kb 10/01 17:28 Order name: IV Saline Lock; Complete Time: 17:52 kb 10/01 17:28 Order name: Labs collected and sent; Complete Time: 17:52 kb Administered Medications: 17:53 Drug: Ondansetron IVP 4 mg IVP once; over 2 minutes Route: IVP; Site: right antecubital;aa5 18:15 Follow up: Response: No adverse reaction aa5 17:55 Drug: NS 0.9% IV 1000 ml IV at 1 bolus Per protocol; 1000 mL bolus Route: IV; Rate: 1 aa5 bolus; Site: right antecubital; 19:00 Follow up: IV Status: Completed infusion; IV Intake: 1000ml cm10 19:45 Follow up: Response: No adverse reaction cm10 17:55 Drug: Famotidine IVP 20 mg IVP once; dilute with 10 mL 0.9% NaCl; give over 2 minutes aa5 Route: IVP; Site: right antecubital; 18:15 Follow up: Response: No adverse reaction aa5 18:12 Drug: TORadol - Ketorolac IVP 15 mg IVP once Route: IVP; Site: right antecubital; aa5 18:15 Follow up: Response: No adverse reaction aa5 19:40 Drug: morphine IVP or IV 2 mg IVP once over 4 mins Route: IVP; Infused Over: 4 mins; cm10 Site: right antecubital; 19:40 Follow up: Response: No adverse reaction; Medication administered at discharge. cm10 Disposition Summary: 10/02/23 19:14 Discharge Ordered Notes: Location: Home kb Condition: Stable kb Diagnosis - Upper abdominal pain, unspecified kb Followup: kb - With: Emergency Department - When: As needed - Reason: Worsening of condition Followup: kb - With: Private Physician - When: 2 - 3 days - Reason: Recheck today's complaints, Continuance of care, Re-evaluation by your physician Discharge Instructions: - Discharge Summary Sheet kb - Abdominal Pain, Adult, [id number] kb Forms: - Medication Reconciliation Form kb - Antibiotic Education kb - Prescription Opioid Use kb - Patient Portal Instructions kb - Leadership Thank You Letter kb Prescriptions: - Diclofenac Sodium 75 mg Oral tablet, delayed release (enteric coated) - take 1 tablet ORAL route 2 times per day As needed; 30 tablet; Refills: 0, kb Product Selection Permitted Addendum: 10/04/2023 07:17 Co-signature as Attending Physician, Santos Fay MD I reviewed the patient's care r n provided by the Advanced Practice Provider and agree with the diagnosis and treatment plan. Signatures: Dispatcher [employer] Kelly Lara, V[employer] OFFICER-C [employer] OFFICER-Ckb Santos Fay MD MD rn Calderon, Audri, RN RN aa5 Kellen Law RN RN nj1 Loan Linares, RN RN cm10 Corrections: (The following items were deleted from the chart) 10/01 17:28 17:28 CBC+H.LAB.BRZ ordered. EDMS EDMS 17:28 17:28 COMPREHENSIVE METABOLIC PANEL+C.LAB.BRZ ordered. EDMS EDMS 17:28 17:28 LIPASE+C.LAB.BRZ ordered. EDMS EDMS 17:28 17:28 Test, Urine+UC.LAB.BRZ ordered. EDMS EDMS 17:28 17:28 Urinalysis+U.LAB.BRZ ordered. EDMS EDMS 17:28 17:28 Abdomen Limited+US.RAD.BRZ ordered. EDMS EDMS
[2023-10-02] MEDS ORDERED: MORPHINE 2 MG/ML SYR ONE (19:30)
[2023-10-02 20:38] VITALS: BP 116/78; TEMP 98.7; O2SAT 100
== END 2023-10-02 19:45 | disposition home or self-care (01) ==
LOC: ER 17:15
DX: R10.11 Right upper quadrant pain (principal); Z28.310 Unvaccinated for COVID-19
CPT/HCPCS: 36415; 74176; 76377; 76705; 80053; 81001; 81025; 83690; 85025; 96361; 96374; 96375; 99284; J2270; J2405; J7030; Q9967

== ENCOUNTER 2023-10-06 17:57 | Emergency (ER) | payer SELFPAY ==
[2023-10-06] MEDS ORDERED: FENTANYL CITR 100 MCG/2 ML ONE (18:41)
[2023-10-06] MEDS ORDERED: ONDANSETRON 4 MG/2 ML VIAL ONE (18:41)
[2023-10-06 18:47] LABS: Absolute Eosinophils 0.2 K/uL (0-0.5); Absolute Lymphocytes (CBC) 1.2 K/uL (0.7-4.9); Absolute Monocytes 0.8 K/uL (0.1-1.3); Absolute Neutrophil 6.6 K/uL (1.8-8.0); Basophils % 0.4 % (0-1.3); Eosinophils % 2.2 % (0-4.4); Hematocrit 32.7 % (36.0-45.0); Hemoglobin 11.2 g/dL (12.0-15.0); Lymphocytes % 13.4 % (15.3-44.8); MCH 33.3 pg (27.0-35.0); MCHC 34.3 g/dL (32.0-36.0); MCV 97.1 fL (80-100); MPV 8.3 fL (7.6-11.3); Monocytes % 8.9 % (3.3-12.3); Neutrophils % 75.1 % (41.7-73.7); Platelets 257 thou/uL (152-406); RBC Red Blood Cell Count 3.37 M/uL (3.86-4.86); Red Cell Distribution Width 13.2 % (12.1-15.2)
[2023-10-06 19:03] LABS: Albumin 3.7 g/dL (3.4-5.0); Albumin/Globulin Ratio 0.9 (1.1-1.8); Anion Gap 7.3 mEq/L (5.0-15.0); Bilirubin Total 0.3 mg/dL (0.2-1.0); Globulin 4.1 g/dL (2.3-3.5); Potassium 3.3 mEq/L (3.5-5.1); Protein, Total 7.8 g/dL (6.4-8.2)
[2023-10-06] MEDS ORDERED: METOCLOPRAMIDE 10 MG/2mL INJ ONE (19:22)
[2023-10-06] MEDS ORDERED: NA CHLORIDE 0.9% 100 ML ONE (19:23)
[2023-10-06 19:57] LABS: Sqamous Epithelial <5 /HPF (None Seen); Urine Bacteria <20 /HPF (<20); Urine Bilirubin NEGATIVE (Negative); Urine Blood 3+ (OVER) (Negative); Urine Clarity Extremely Turbid (Clear); Urine Color Colorless (Yellow); Urine Culture Reflex Order REFLEXED; Urine Glucose NEGATIVE (Negative); Urine Ketones 2+ (Negative); Urine Microscopic Reflex YN ORDER UMIC; Urine Mucus 1+ /HPF (None Seen); Urine Nitrite NEGATIVE (Negative); Urine Protein TRACE (Negative); Urine RBC >50 /HPF (None Seen); Urine Urobilinogen Normal (Normal)
--- NOTE | 2023-10-06 20:21 | ER ---
Nurse's Notes [facility] Name: Deisy Jimenez Age: 23 yrs Sex: Female : 2000 Arrival Date: 10/06/2023 Time: 17:57 Bed 4 Private MD: Diagnosis: Unspecified renal colic Presentation: 10/05 18:03 Chief complaint: Patient states: they said i had kidney stones and I've been taking medicine , was seen here this week, is still having pain on right rib area up to shoulder. Coronavirus screen: At this time, the client does not indicate any symptoms associated with coronavirus-19. Ebola Screen: Patient negative for fever greater than or equal to 101.5 degrees Fahrenheit, and additional compatible Ebola Virus Disease symptoms Patient denies exposure to infectious person. Patient denies travel to an Ebola-affected area in the 21 days before illness onset. No symptoms or risks identified at this time. Initial Sepsis Screen: Does the patient meet any 2 criteria? No. Patient's initial sepsis screen is negative. Does the patient have a suspected source of infection? No. Patient's initial sepsis screen is negative. Risk Assessment: Do you want to hurt yourself or someone else? Patient reports no desire to harm self or others. Onset of symptoms was October 06, 2023. 18:03 Method Of Arrival: Ambulatory iw 18:03 Acuity: AHMET 3 iw HOME ASSESSMENT NURSE: 18:05 LMP 10/01/2023, unknown iw Historical: - Allergies: 18:05 No Known Allergies; iw - PMHx: 18:05 Kidney stone; iw - PSHx: 18:05 None; iw - Immunization history:: Adult Immunizations Client reports having NOT received the Covid vaccine. - Infectious Disease History:: Denies. - Social history:: Smoking status: Reported history of juuling and/or vaping. Screenin:[address] [facility] ED Fall Risk Assessment (Adult) History of falling in the last 3 months, ko1 including since admission No falls in past 3 months (0 pts) Confusion or Disorientation No (0 pts) Intoxicated or Sedated No (0 pts) Impaired Gait No (0 pts) Mobility Assist Device Used No (0 pt) Altered Elimination No (0 pt) Score/Fall Risk Level 0 - 2 = Low Risk Oriented to surroundings, Maintained a safe environment, Educated pt \T\ family on fall prevention, incl call for assistance when getting out of bed, Assessed \T\ reinforced patient's understanding of fall precautions, Provided non-skid footwear, Hourly rounding (assess needs \T\ fall precautionary measures) done, Used ambulatory aids as needed (educated on \T\ assisted with), Used gait belt as appropriate. Abuse screen: Denies threats or abuse. Denies injuries from another. Nutritional screening: No deficits noted. Tuberculosis screening: No symptoms or risk factors identified. Assessment: 18:15 General: Appears in no apparent distress. uncomfortable, Behavior is calm, cooperative, ko1 appropriate for age. Pain: Complains of pain in right upper quadrant. Neuro: No deficits noted. Cardiovascular: No deficits noted. Respiratory: No deficits noted. GI: Bowel sounds present X 4 quads. Abd is soft and non tender X 4 quads. : Urine is kuldip blood. EENT: No deficits noted. Derm: No deficits noted. Musculoskeletal: No deficits noted. Vital Signs: 18:03 BP 116 / 88; Pulse 94; Resp 18; Temp 97.5; Pulse Ox 98% on R/A; Weight 49.9 kg; Height iw 5 ft. 4 in. ; Pain 8/10; 19:34 BP 118 / 76; Pulse 62; Resp 17; Temp 97.5; Pulse Ox 100% on R/A; Pain 6/10; bm8 20:28 BP 106 / 88; Pulse 64; Resp 18; Pulse Ox 96% ; cm10 18:03 Body Mass Index 18.88 (49.90 kg, 162.56 cm) iw 18:03 Pain Scale: Adult iw 19:34 Pain Scale: Adult bm8 Mele Coma Score: 19:34 Eye Response: spontaneous(4). Motor Response: obeys commands(6). Verbal Response: bm8 oriented(5). Total: 15. ED Course: 17:58 Patient arrived in ED. im 18:01 Ermelinda Jeffers PA-C is PHCP. sb4 18:01 Do Stahl MD is Attending Physician. sb4 18:04 Triage completed. iw 18:05 Arm band placed on. iw 18:15 Patient has correct armband on for positive identification. Bed in low position. Call ko1 light in reach. Side rails up X2. Pulse ox on. NIBP on. Door closed. Noise minimized. Lights dimmed. 18:15 Inserted saline lock: 22 gauge in right antecubital area, using aseptic technique. ko1 Blood collected. 18:23 Meeta Vu, TEGAN is Primary Nurse. ko1 19:34 Warm blanket given. Verbal reassurance given. bm8 19:34 No provider procedures requiring assistance completed. IV is patent, with fluids bm8 infusing freely. 20:21 Jovan Guerrero MD is Referral Physician. sb4 20:26 Primary Nurse role handed off by Meeta Vu, RN wm 20:27 Provided Education on: for follow up with specialist. bm8 20:27 IV discontinued, intact, bleeding controlled, No redness/swelling at site. Pressure bm8 dressing applied. Administered Medications: 18:50 Drug: Ondansetron IVP 4 mg IVP once; over 2 minutes Route: IVP; Site: right antecubital;ko1 19:33 Follow up: Response: No adverse reaction bm8 18:50 Drug: fentaNYL (PF) IVP 25 mcg IVP once Route: IVP; Site: right antecubital; ko1 19:32 Follow up: Response: Adverse reaction, Physician notified; Nausea is increased; Other; bm8 notified provideer of pt's response. new orders given. 19:32 Drug: metoCLOPramide IVP 10 mg IVP once; over 1 to 2 minutes Route: IVP; Site: right bm8 antecubital; 20:19 Follow up: Response: No adverse reaction bm8 20:27 Drug: Flomax PO 0.4 mg PO once Route: PO; bm8 20:27 Follow up: Response: Medication administered at discharge. bm8 Medication: 19:34 VIS not applicable for this client. bm8 Intake: Outcome: 20:21 Discharge ordered by . sb4 20:27 Discharged to home ambulatory, bm8 20:27 Condition: stable 20:27 Condition: stable 20:27 Discharge instructions given to patient, Instructed on discharge instructions, follow up and referral plans. medication usage, safety practices, Demonstrated understanding of instructions, follow-up care, medications, Prescriptions given X 2, 20:29 Discharged to Pt states that she is waiting for her mom in the lobby. cm10 20:29 Patient left the ED. cm10 Signatures: Jeny Miller RN RN iw Kassidy López Kathy, TEGAN RN ko1 Ermelinda Jeffers PA-C PAMarcellus sb4 Yael Goldmsith Clarissa RN RN cm10 Gabriel Lentz RN RN bm8 Corrections: (The following items were deleted from the chart) 18:05 18:03 BP 116 / 88; Pulse 115bpm; Resp 18bpm; Pulse Ox 98% RA; Temp 97.5F; iw iw 18:05 18:05 PMHx: Kidney disease; iw iw
--- NOTE | 2023-10-06 20:22 | EDPHYS ---
Physician Documentation [facility] [place]el[place] Name: Deisy Jimenez Age: 23 yrs Sex: Female : 2000 Arrival Date: 10/06/2023 Time: 17:57 Bed 4 Private MD: ED Physician Do Stahl HPI: 10/05 18:23 This 23 yrs old Female presents to ER via Ambulatory with complaints of Low sb4 Back Pain, Possible Kidney Stone. 18:24 was seen here 4 days ago with RUQ and right flank pain, diagnosed with small kidney sb4 stones, discharged with diclofenac rx. states pain has not improved, has been peeing blood for 2 weeks. endorses nausea, no vomiting. [employer]PER[employer]: 18:05 LMP 10/01/2023, unknown iw Historical: - Allergies: 18:05 No Known Allergies; iw - PMHx: 18:05 Kidney stone; iw - PSHx: 18:05 None; iw - Immunization history:: Adult Immunizations Client reports having NOT received the Covid vaccine. - Infectious Disease History:: Denies. - Social history:: Smoking status: Reported history of juuling and/or vaping. ROS: 18:24 Constitutional: Negative for fever, chills, and weight loss, sb4 18:24 Abdomen/GI: Positive for abdominal pain, nausea, 18:24 Back: Positive for flank pain, on the right, 18:24 : Positive for hematuria, 18:24 All other systems are negative, Exam: 18:24 Constitutional: This is a well developed, well nourished patient who is awake, alert, sb4 and in no acute distress. Head/Face: Normocephalic, atraumatic. Eyes: Extra-ocular motions intact. Periorbital areas with no swelling, redness, or edema. ENT: Mucous membranes moist. Cardiovascular: Regular rate and rhythm with a normal S1 and S2. Respiratory: Lungs have equal breath sounds bilaterally, clear to auscultation and percussion. No rales, rhonchi or wheezes noted. No increased work of breathing, no retractions or nasal flaring. Abdomen/GI: Soft, non-tender, no distension. Skin: Warm, dry with normal turgor. Normal color with no rashes, no lesions, and no evidence of cellulitis. MS/ Extremity: Pulses equal, no cyanosis. Neurovascular intact. Full, normal range of motion. 18:24 Abdomen/GI: Inspection: abdomen appears normal, Palpation: soft, mild abdominal tenderness, in the right upper quadrant, 18:24 Back: CVA tenderness, that is moderate, is noted on the right, Vital Signs: 18:03 BP 116 / 88; Pulse 94; Resp 18; Temp 97.5; Pulse Ox 98% on R/A; Weight 49.9 kg; Height iw 5 ft. 4 in. ; Pain 8/10; 19:34 BP 118 / 76; Pulse 62; Resp 17; Temp 97.5; Pulse Ox 100% on R/A; Pain 6/10; bm8 20:28 BP 106 / 88; Pulse 64; Resp 18; Pulse Ox 96% ; cm10 18:03 Body Mass Index 18.88 (49.90 kg, 162.56 cm) iw 18:03 Pain Scale: Adult iw 19:34 Pain Scale: Adult bm8 [place] Coma Score: 19:34 Eye Response: spontaneous(4). Motor Response: obeys commands(6). Verbal Response: bm8 oriented(5). Total: 15. MDM: 18:07 Patient medically screened. sb4 20:20 Data reviewed: vital signs, nurses notes, lab test result(s), and as a result, I will sb4 discharge patient. Counseling: I had a detailed discussion with the patient and/or guardian regarding the historical points, exam findings, and any diagnostic results supporting the discharge/admit diagnosis, lab results, the need for outpatient follow up, a urologist, to return to the emergency department if symptoms worsen or persist or if there are any questions or concerns that arise at home. Refusal of service: The patient/guardian displays adequate decision making capability and despite a detailed discussion of alternatives, benefits, risks, and consequences refuses: CT Scan. 10/05 18:23 Order name: CBC with Diff; Complete Time: 18:48 [facility] 10/05 18:23 Order name: CMP; Complete Time: 19:04 [facility] 10/05 18:23 Order name: Lipase; Complete Time: 19:04 [facility] 10/05 18:23 Order name: Test, Urine; Complete Time: 19:53 [facility] 10/05 18:23 Order name: Urinalysis w/ reflexes; Complete Time: 19:59 sb4 10/05 20:00 Order name: Urine Culture EDNE 10/05 18:23 Order name: IV Saline Lock; Complete Time: 18:50 sb4 10/05 18:23 Order name: Labs collected and sent; Complete Time: 18:50 sb4 10/05 18:38 Order name: Labs - recollect needed: all urine; Complete Time: 19:34 iw Administered Medications: 18:50 Drug: Ondansetron IVP 4 mg IVP once; over 2 minutes Route: IVP; Site: right antecubital;ko1 19:33 Follow up: Response: No adverse reaction bm8 18:50 Drug: fentaNYL (PF) IVP 25 mcg IVP once Route: IVP; Site: right antecubital; ko1 19:32 Follow up: Response: Adverse reaction, Physician notified; Nausea is increased; Other; bm8 notified provideer of pt's response. new orders given. 19:32 Drug: metoCLOPramide IVP 10 mg IVP once; over 1 to 2 minutes Route: IVP; Site: right bm8 antecubital; 20:19 Follow up: Response: No adverse reaction bm8 20:27 Drug: Flomax PO 0.4 mg PO once Route: PO; bm8 20:27 Follow up: Response: Medication administered at discharge. bm8 Disposition: 10/06 09:17 STAFF ATTESTATION STATEMENT: I was immediately available onsite in the emergency sd2 department for consultation in the care of this patient. I did not see or examine this patient. Do Stahl MD. Disposition Summary: 10/06/23 20:21 Discharge Ordered Notes: Location: Home sb4 Problem: an ongoing problem sb4 Symptoms: have improved sb4 Condition: Stable sb4 Diagnosis - Unspecified renal colic sb4 Followup: sb4 - With: Jovan Guerrero MD - When: As needed - Reason: Recheck today's complaints, Re-evaluation by your physician Discharge Instructions: - Discharge Summary Sheet sb4 - Renal Colic, Oepz-[id number] sb4 - Kidney Stones, [id number] sb4 Forms: - Patient Portal Instructions sb4 - Leadership Thank You Letter sb4 Prescriptions: - ketorolac 10 mg Oral tablet - take 1 tablet ORAL route every 8 hours for 3 days as needed for pain; 12 sb4 tablet; Refills: 0, Product Selection Permitted - tamsulosin 0.4 mg Oral capsule - take 1 capsule ORAL route every day at bedtime; 30 capsule; Refills: 0, Product sb4 Selection Permitted Signatures: Dispatcher [employer] Jeny Saucedo, RN RN iw Do Stahl MD MD sd2 Meeta Vu, RN RN ko1 Ermelinda Jeffers, PAJenniferC PAMarcellus sb4 Gabriel Lentz RN RN bm8 Corrections: (The following items were deleted from the chart) 10/05 18:05 18:05 PMHx: Kidney disease; iw 18:23 18:23 CBC+H.LAB.BRZ ordered. EDMS EDMS 18:23 18:23 COMPREHENSIVE METABOLIC PANEL+C.LAB.BRZ ordered. EDMS EDMS 18:23 18:23 LIPASE+C.LAB.BRZ ordered. EDMS EDMS 18:23 18:23 Test, Urine+UC.LAB.BRZ ordered. EDMS EDMS 18:23 18:23 Urinalysis+U.LAB.BRZ ordered. EDMS EDMS 18:24 18:23 Abdomen Pelvis W Con+CT.RAD.BRZ ordered. EDMS EDMS 19:37 18:23 TEST, SERUM+SC.LAB.BRZ ordered. EDMS EDMS
[2023-10-06] MEDS ORDERED: TAMSULOSIN 0.4 MG SR CAP ONE (20:23)
[2023-10-06 20:59] VITALS: BP 106/88; TEMP 97.5; O2SAT 96
== END 2023-10-06 20:29 | disposition home or self-care (01) ==
LOC: ER 17:57
DX: N23 Unspecified renal colic (principal)
CPT/HCPCS: 36415; 80053; 81001; 81025; 83690; 85025; 87086; 87088; 96374; 96375; 99284; J2405; J2765; J3010

== ENCOUNTER 2024-09-29 15:15 | Emergency (ER) | payer SELFPAY ==
--- OUTSIDE RECORDS SUMMARY | 2024-09-29 15:18 | XMS REPORT | Continuity of Care Document ---
Author Name Unknown Address [address] [facility]. [address] [place] [address] [facility] [place] Address [address] [facility] [address] [place] [address] Care Team Providers Care Specimen Preparation Assistant Name Role Phone Vicky Oliveros Primary Care Physician [phone] ANNA DOBSON Attending Clinician Unavail able Olya Anna SLOAN Attending Clinician + VICKY ANAND Attending Clinician Unavailab Vicky Gallardo Attending Clinician + [phone] Moustapha Engle MD Attending Clinician [phone] Hossein Jean Baptiste MD Attending Clinician + [phone] Estephania Teran MD, Leonard Attending Clinician + [phone] ESPERANZA APPIAH Attending Clinician Unavailable Esperanza Appiah MD Attending Clinician +[phone] JAMIE CONTE Attending Clinician Unavail able [facility], [facility] Attending Clinician Jamie Burgos Attending Clinician + Ultrasound, Adc Mfm Attending Clinician UnavailTami Pate MD Attending Clinician + TAMI GEE Attending Clinician Unav ailable Ultrasound, Ang-Mfm Attending Clinician Unavaila ble Doctor Unassigned, Ault Attending Clinician U navailable Moustapha Engle MD Admitting Clinician MOUSTAPHA ENGLE Admitting Clinician Unavailable ADESPERANZA DENT Admitting Clinician Unavailable AdEsperanza dent MD Admitting Clinician Payers Payer Name Policy Type Policy Number Effective Date Expirati on Date Source MEDICAID PENDING PENDING 2024 00:00:00 [facility] [id number] 2021 00:00:00 [place] [id number] 2017 00:00:00 Problems Condition Name Condition Details Condition Category Status Onset Date Resolution Date Last Treatment Date Treating Clinician Comments Source Encounter for other general counseling or advice on contracept ion Encounter for other general counseling or advice on contracept ion Disease Active 4-11 00:00: 00 [facility] Obesity (BMI 30-39.9) Obesity (BMI 30-39.9) Disease Active 2-26 00:00: 00 [facility] Vacuum-ass isted vaginal delivery Vacuum-ass isted vaginal delivery Disease Active 2-25 00:00: 00 [facility] Normal labor Normal labor Disease Active 2-24 00:00: 00 [facility] COVID-19 virus IgG antibody detected COVID-19 virus IgG antibody detected Disease Active 2-23 00:00: 00 [facility] BMI 25.0-25.9, adult BMI 25.0-25.9, adult Disease Active 2020-06 2-20 00:00: 00 [facility] BMI 25.0-25.9, adult BMI 25.0-25.9, adult Disease Active 2020-06 2-20 00:00: 00 [facility] Rubella non-immune status, antepartum Rubella non-immune status, antepartum Disease Active 7-13 00:00: 00 Overview: Formattin g of this note might be different from the original. Address in PP. [facility] Supervisio n of high risk in third trimester Supervisio n of high risk in third trimester Disease Active 12-16 00:00: 00 [facility] Primigravi da in third trimester Primigravi da in third trimester Disease Active 12-16 00:00: 00 [facility] Depression , unspecifie d depression type Depression , unspecifie d depression type Disease Active 12-16 00:00: 00 [facility] Teen emotional problem Teen emotional problem Disease Active 07-01 00:00: 00 [facility] Scabies Scabies Disease Active 09-29 00:00: 00 [facility] Severe pre-eclamp vianca in third trimester Severe pre-eclamp vianca in third trimester Disease Resolve d 2 00:00: 00 2021-09-15 00:00:00 2021-09-15 13:33:09 [facility] Anemia associated with acute blood loss Anemia associated with acute blood loss Disease Resolve d 2020-06 2- 00:00: 00 2021-09-15 00:00:00 2021-09-15 13:33:09 [facility] Nausea and vomiting during prior to 22 weeks gestation Nausea and vomiting during prior to 22 weeks gestation Disease Resolve d 12-16 00:00: 00 2021-07-31 00:00:00 2021-07-31 20:32:17 [facility] Abnormal menses Abnormal menses Disease Resolve d 07-01 00:00: 00 2021-07-31 00:00:00 2021-07-31 20:32:05 [facility] Allergies, Adverse Reactions, Alerts Allergy Name Allergy Type Status Severity Reaction(s) Onset Date Inactive Date Treating Clinician Comments Source NO KNOWN ALLERGIE S Drug Class Active [facility] Family History Family Member Diagnosis Comments Start Date Stop Date Sourc e [facility] Natural [facility] Hy[facility] Maternal grandfather Diabetes [facility] Maternal grandmother Arthritis [facility] Maternal grandmother Diabetes [facility] Maternal grandmother Heart [facility] Maternal grandmother High cholesterol [facility] Maternal grandmother Hypertension [facility] Maternal uncle Depression [facility] Maternal uncle [facility] Natural [facility] Arthritis [facility] Natural mother Asthma [facility] Paternal grandmother Cancer [facility] Natural [facility] Social History Social Habit Start Date Stop Date Quantity Comments Source Sexual [facility]ION Not [facility] Exposure to SARS-CoV-2 (event) Not sure [facility] Alcoholic beverage intake 2023-06-29 00:00:00 2023-06-29 00:00:00 Current non-drinker of alcohol (finding) [facility] Alcohol intake 2021-09-15 00:00:00 2021-09-15 00:00:00 Current non-drinker of alcohol (finding) [facility] History of Social function 2020-12-16 00:00:00 2020-12-16 00:00:00 [facility] Tobacco use and exposure 2013-10-16 00:00:00 2013-10-16 00:00:00 Smokeless tobacco non-user [facility] Tobacco Comment 2012-09-20 00:00:00 2012-09-20 00:00:00 Denies smoking exposure [facility] Sex assigned at 2000 00:00:00 2000 00:00:00 [facility] Smoking Status Start Date Stop Date Source Never smoked tobacco [facility] Medications Ordered Medication Name Filled Medication Name Start Date Stop Date Current Medication? Ordering Clinician Indication Dosage Frequency Signature (SIG) Comments Components Source ferrous sulfate 325 mg (65 mg iron) tablet 08-03 00:00: 00 Yes [id number] 325mg Take 1 tablet by mouth 2 (two) times daily. [facility] ibuprofen 600 mg tablet 08-03 00:00: 00 Yes [id number] 600mg Take 1 tablet by mouth every 6 (six) hours as needed (Pain). Take with food or milk. [facility] vitamin w/FA tablet 08-03 00:00: 00 09-15 00:00 :00 No [id number] 1{tbl} Take 1 tablet by mouth daily. [facility] docusate calcium 240 mg capsule 08-03 00:00: 00 09-15 00:00 :00 No [id number] 240mg Take 1 capsule by mouth once daily as needed for Constipati on. [facility] Immunizations Ordered Immunization Name Filled Immunization Name Date Status Comments Source TDAP 2021-05-12 00:00:00 Completed [facility] TDAP 2021-05-12 00:00:00 Completed TDAP 2013-10-16 00:00:00 Completed [facility] Meningococcal Polysaccharide (groups A, C, Y and W-135) conjugate vaccine (MCV4P) 2013-10-16 00:00:00 Completed [facility] Varicella (varivax)(chicken pox) 2013-10-16 00:00:00 Completed [facility] TDAP 2013-10-16 00:00:00 Completed Meningococcal Polysaccharide (groups A, C, Y and W-135) conjugate vaccine (MCV4P) 2013-10-16 00:00:00 Completed Varicella (varivax)(chicken pox) 2013-10-16 00:00:00 Completed HEPATITIS A 2005-08-04 00:00:00 Completed [facility] HEPATITIS A 2005-08-04 00:00:00 Completed HEPATITIS A 2005-01-15 00:00:00 Completed [facility] HEPATITIS A 2005-01-15 00:00:00 Completed DTAP 2004-11-04 00:00:00 Completed [facility] Polio (IPV/OPV) 2004-11-04 00:00:00 Completed [facility] MMR 2004-11-04 00:00:00 Completed [facility] DTAP 2004-11-04 00:00:00 Completed [facility] Polio (IPV/OPV) 2004-11-04 00:00:00 Completed MMR 2004-11-04 00:00:00 Completed Pneumococcal 7 Conjugate, PCV7 (Prevnar7) 2002-09-04 00:00:00 Completed [facility] Pneumococcal 7 Conjugate, PCV7 (Prevnar7) 2002-09-04 00:00:00 Completed DTAP 2001-12-29 00:00:00 Completed [facility] Hep B, Adol or Pedi Dosage 2001-12-29 00:00:00 Completed [facility] DTAP 2001-12-29 00:00:00 Completed Hep B, Adol or Pedi Dosage 2001-12-29 00:00:00 Completed HIB 4 Dose Schedule 2001-10-13 00:00:00 Completed [facility] MMR 2001-10-13 00:00:00 Completed [facility] Polio (IPV/OPV) 2001-10-13 00:00:00 Completed [facility] Varicella (varivax)(chicken pox) 2001-10-13 00:00:00 Completed [facility] HIB 4 Dose Schedule 2001-10-13 00:00:00 Completed MMR 2001-10-13 00:00:00 Completed Polio (IPV/OPV) 2001-10-13 00:00:00 Completed Varicella (varivax)(chicken pox) 2001-10-13 00:00:00 Completed DTAP 2001-06-01 00:00:00 Completed [facility] HIB 4 Dose Schedule 2001-06-01 00:00:00 Completed [facility] Hep B, Adol or Pedi Dosage 2001-06-01 00:00:00 Completed [facility] Pneumococcal 7 Conjugate, PCV7 (Prevnar7) 2001-06-01 00:00:00 Completed [facility] DTAP 2001-06-01 00:00:00 Completed HIB 4 Dose Schedule 2001-06-01 00:00:00 Completed Hep B, Adol or Pedi Dosage 2001-06-01 00:00:00 Completed Pneumococcal 7 Conjugate, PCV7 (Prevnar7) 2001-06-01 00:00:00 Completed DTAP 2001-03-01 00:00:00 Completed [facility] HIB 4 Dose Schedule 2001-03-01 00:00:00 Completed [facility] Pneumococcal 7 Conjugate, PCV7 (Prevnar7) 2001-03-01 00:00:00 Completed [facility] Polio (IPV/OPV) 2001-03-01 00:00:00 Completed [facility] DTAP 2001-03-01 00:00:00 Completed HIB 4 Dose Schedule 2001-03-01 00:00:00 Completed Pneumococcal 7 Conjugate, PCV7 (Prevnar7) 2001-03-01 00:00:00 Completed Polio (IPV/OPV) 2001-03-01 00:00:00 Completed DTAP 2000 00:00:00 Completed [facility] HIB 4 Dose Schedule 2000 00:00:00 Completed [facility] Pneumococcal 7 Conjugate, PCV7 (Prevnar7) 2000 00:00:00 Completed [facility] Polio (IPV/OPV) 2000 00:00:00 Completed [facility] DTAP 2000 00:00:00 Completed [facility] HIB 4 Dose Schedule 2000 00:00:00 Completed Pneumococcal 7 Conjugate, PCV7 (Prevnar7) 2000 00:00:00 Completed Polio (IPV/OPV) 2000 00:00:00 Completed Hep B, Adol or Pedi Dosage 2000 00:00:00 Completed [facility] Hep B, Adol or Pedi Dosage 2000 00:00:00 Completed Vital Signs Vital Name Observation Time Observation Value Comments S ource Systolic blood pressure 2021-09-15 18:19:00 115 mm[Hg] [facility] Diastolic blood pressure 2021-09-15 18:19:00 73 mm[Hg] [facility] Heart rate 2021-09-15 18:19:00 70 /min [facility] Body temperature 2021-09-15 18:19:00 35.89 Ernestine [facility] Respiratory rate 2021-09-15 18:19:00 16 /min [facility] Body height 2021-09-15 18:19:00 162.6 cm [facility] Body weight 2021-09-15 18:19:00 66.543 kg [facility] BMI 2021-09-15 18:19:00 25.18 kg/m2 [facility] Systolic blood pressure 2021-09-15 18:19:00 115 mm[Hg] [facility] Diastolic blood pressure 2021-09-15 18:19:00 73 mm[Hg] [facility] Heart rate 2021-09-15 18:19:00 70 /min [facility] Body temperature 2021-09-15 18:19:00 35.89 Ernestine [facility] Respiratory rate 2021-09-15 18:19:00 16 /min [facility] Body height 2021-09-15 18:19:00 162.6 cm [facility] Body weight 2021-09-15 18:19:00 66.543 kg [facility] BMI 2021-09-15 18:19:00 25.18 kg/m2 [facility] Oxygen saturation in Arterial blood by Pulse oximetry 2021-08-03 19:30:00 99 /min [facility] Procedures Procedure Date / Time Performed Performing Clinicia n Source LAB ONLY PAP SMEAR-LIQUID BASED 2021-09-15 19:38:00 Vicky Anand [facility] GC & CHLAMYDIA AMPLIFIED ASSAY 2021-09-15 19:38:00 Vicky Anand [facility] HIV 1/2 AG-AB WITH REFLEX 2021-08-01 03:10:00 Moustapha Engle [facility] Encounters Start Date/Time End Date/Time Encounter Type Admission Type Attending Clinicians Care Facility Care Department Encounter ID Source 2024-09-18 08:45:00 2024-09-18 08:45:00 Outpatient R ANNA DOBSON [facility] [id number] [facility] 2024-09-18 00:00:00 2024-09-18 00:00:00 Travel 1.2.840.1 [id number] 3.104.2.7 [id number] 350.1.13.10 4.2.7.3.698 [id number] [facility] 2024-08-29 00:00:00 2024-08-30 13:07:43 Telephone Anna Dobson 1.2.840.1 [id number] [id number] [facility] 2022-09-15 13:00:00 2022-09-15 13:00:00 Outpatient LINK TRUJILLOMARK ANTHONYBonny [facility] [id number] [facility] 2021-09-15 13:00:00 2021-09-15 13:57:48 Outpatient Erin ANAND LINKIVETT [facility] [id number] [facility] 2021-09-15 13:00:00 2021-09-15 13:57:48 Office Visit Anand, Vicky Khan [facility] FITNESS AND WELLNESS COORDINATOR [facility] MATERNAL & CHILD [facility]ALTH [facility] 1.0.114 350.1.13.10 4.2.7.2.686 [id number] [facility] 2021-09-15 13:00:00 2021-09-15 13:57:48 Outpatient Erin ANAND VICKY [facility] [id number] [facility] 2021-08-26 11:00:00 2021-08-26 11:00:00 Outpatient [facility] [id number] [facility] 2021-08-08 10:30:00 2021-08-08 10:30:00 Outpatient [facility] [id number] [facility] 2021-07-31 19:18:00 2021-08-03 17:15:00 Hospital Encounter Moustapha Engle [facility] 1.20.114 350.1.13.10 4.2.7.2.686 [id number] [facility] 2021-08-01 08:22:00 2021-08-01 18:09:00 Anesthesia Event Hossein Jean Baptiste Leonard [facility] 1.2840.114 350.1.13.10 4.2.7.2.686 [id number] [facility] 2021-07-30 09:00:00 2021-07-30 09:15:00 Routine Visit Vicky Anand Erin [facility] FITNESS AND WELLNESS COORDINATOR [facility] MATERNAL & CHILD [facility] 1.840.114 350.1.13.10 4.2.7.2.686 [id number] [facility] 2021-07-30 09:00:00 2021-07-30 09:00:00 Outpatient LINK TRUJILLOMARK ANTHONYBonny [facility] [id number] [facility] 2021-07-30 09:00:00 2021-07-30 09:00:00 Outpatient Erin ANAND, ROSRAMIN [facility] [id number] [facility] 2021-07-27 20:57:00 2021-07-27 22:17:00 Outpatient ESPERANZA PIERRE [facility] [id number] [facility] 2021-07-27 20:57:00 2021-07-27 22:17:00 Hospital Encounter KaneadolphEsperanza [facility] .840.114 350.1.13.10 4.2.7.2.686 [id number] [facility] 2021-07-23 13:30:00 2021-07-23 13:30:00 Outpatient R [facility] [id number] [facility] 2021-07-22 12:45:00 2021-07-22 13:23:40 Outpatient LINK TRUJILLORAMIN [facility] [id number] [facility] 2021-07-22 12:45:00 2021-07-22 13:23:40 Routine Visit Sade Anandbonny Khan [facility] FITNESS AND WELLNESS COORDINATOR [facility] & CHILD [facility] .840.114 350.1.13.10 4.2.7.2.686 [id number] [facility] 2021-07-22 12:45:00 2021-07-22 12:45:00 Outpatient R VICKY ANAND [facility] [id number] [facility] 2021-07-15 13:00:00 2021-07-15 13:00:00 Outpatient R VICKY ANAND [facility] [id number] [facility] 2021-07-14 13:15:00 2021-07-14 13:15:00 Outpatient R VICYK ANAND [facility] [id number] [facility] 2021-07-09 00:00:00 2021-07-09 00:00:00 Telephone Vicky Anand [facility] FITNESS AND WELLNESS COORDINATOR [facility] & CHILD [facility] ..840.114 350.1.13.10 4.2.7.2.686 [id number] [facility] 2021-07-08 12:45:00 2021-07-08 13:40:40 Outpatient R VICKY ANAND [facility] [id number] [facility] 2021-07-08 12:45:00 2021-07-08 13:40:40 Outpatient R VICKY ANAND [facility] [id number] [facility] 2021-07-08 12:45:00 2021-07-08 13:40:40 Routine Visit Vicky Anand Erin [facility] FITNESS AND WELLNESS COORDINATOR [facility] & CHILD [facility] ..840.114 350.1.13.10 4.2.7.2.686 [id number] [facility] 2021-06-24 15:15:00 2021-06-24 16:06:46 Outpatient VICKY TRUJILLO [facility] [id number] [facility] 2021-06-24 15:15:00 2021-06-24 16:06:46 Routine Visit Sade Anandbonny Khan [facility] FITNESS AND WELLNESS COORDINATOR [facility] & CHILD [facility] ..840.114 350.1.13.10 4.2.7.2.686 [id number] [facility] 2021-06-09 08:15:00 2021-06-09 08:41:14 Outpatient VICKY TRUJILLO [facility] [id number] [facility] 2021-05-26 09:30:00 2021-05-26 10:08:32 Outpatient R ANANDVICKY [facility] [id number] [facility] 2021-05-26 09:30:00 2021-05-26 10:08:32 Routine Visit AnandVicky [facility] FITNESS AND WELLNESS COORDINATOR [facility] MATERNAL & CHILD [facility] 1..840.114 350.1.13.10 4.2.7.2.686 [id number] [facility] 2021-05-12 09:00:00 2021-05-12 09:36:19 Outpatient R JAMIE CONTE [facility] [id number] [facility] 2021-05-12 08:53:01 2021-05-12 09:36:19 Routine Visit Provider, Jamie Del Cid [facility] FITNESS AND WELLNESS COORDINATOR [facility] MATERNAL & CHILD [facility] 1..840.114 350.1.13.10 4.2.7.2.686 [id number] [facility] 2021-04-16 00:00:00 2021-04-16 00:00:00 Telephone Jamie Conte [facility] FITNESS AND WELLNESS COORDINATOR [facility] MATERNAL & CHILD [facility] 1..840.114 350.1.13.10 4.2.7.2.686 [id number] [facility] 2021-04-14 09:00:00 2021-04-14 09:25:37 Outpatient JAMIE FORRESTER [facility] [id number] [facility] 2021-04-14 08:59:03 2021-04-14 09:25:37 Routine Visit Provider, Jamie Del Cid [facility] FITNESS AND WELLNESS COORDINATOR [facility] MATERNAL & CHILD [facility] 1..840.114 350.1.13.10 4.2.7.2.686 [id number] [facility] 2021-04-03 13:05:18 2021-04-03 14:05:18 [employer] Visit Ultrasound, Adc Mf Tami Gee [facility] 1.840.114 350.1.13.10 4.2.7.2.686 [id number] [facility] 2021-04-03 13:00:00 2021-04-03 13:00:00 Outpatient P TAMI GEE [facility] [id number] [facility] 2021-03-20 08:00:00 2021-03-20 08:00:00 Outpatient P [facility] [id number] [facility] 2021-03-12 09:57:49 2021-03-12 10:51:56 Routine Visit Provider, Jamie Del Cid [facility] FITNESS AND WELLNESS COORDINATOR [facility] MATERNAL & CHILD [facility] 1..840.114 350.1.13.10 4.2.7.2.686 [id number] [facility] 2021-03-12 10:00:00 2021-03-12 10:00:00 Outpatient R [facility] [id number] [facility] 2021-02-11 07:55:38 2021-02-11 08:10:38 Routine Visit Vicky Anand [facility] FITNESS AND WELLNESS COORDINATOR [facility] MATERNAL & CHILD [facility] 1..840.114 350.1.13.10 4.2.7.2.686 [id number] [facility] 2021-02-11 08:00:00 2021-02-11 08:00:00 Outpatient R VICKY ANADN [facility] [id number] [facility] 2021-01-28 15:35:10 2021-01-28 16:05:10 [employer] Visit Ultrasound, Tami Armando [facility] FITNESS AND WELLNESS COORDINATOR [facility] & CHILD [facility] 1.2.840.114 350.1.13.10 4.2.7.2.686 [id number] [facility] 2021-01-28 15:35:10 2021-01-28 16:05:10 [employer] Associate Visit Ultrasound, Tami Armando [facility] FITNESS AND WELLNESS COORDINATOR [facility] & CHILD [facility] 1..840.114 350.1.13.10 4.2.7.2.686 [id number] [facility] 2021-01-28 15:45:00 2021-01-28 15:45:00 Outpatient P [facility] [id number] [facility] 2021-01-28 14:00:00 2021-01-28 14:00:00 Outpatient P [facility] [id number] [facility] 2021-01-28 00:00:00 2021-01-28 00:00:00 Abstract Vicky Anand [facility] FITNESS AND WELLNESS COORDINATOR [facility] & CHILD [facility] 1..840.114 350.1.13.10 4.2.7.2.686 [id number] [facility] 2021-01-28 00:00:00 2021-01-28 00:00:00 Abstract Vicky Anand [facility] FITNESS AND WELLNESS COORDINATOR [facility] & CHILD [facility] 1.2.840.114 350.1.13.10 4.2.7.2.686 [id number] [facility] 2021-01-13 08:30:31 2021-01-13 08:58:34 Routine Visit Vicky Anand [facility] FITNESS AND WELLNESS COORDINATOR [facility] 1.2.840.114 350.1.13.10 4.2.7.2.686 [id number] [facility] 2021-01-13 08:45:00 2021-01-13 08:45:00 Outpatient R VICKY ANAND [facility] [id number] [facility] 2020-12-16 08:43:48 2020-12-16 10:22:01 Initial Visit Vicky Anand [facility] FITNESS AND WELLNESS COORDINATOR [facility] 1.2.840.114 350.1.13.10 4.2.7.2.686 [id number] [facility] 2020-12-16 08:30:00 2020-12-16 08:30:00 Outpatient R [facility] [id number] [facility] 2020-12-16 00:00:00 2020-12-16 00:00:00 Orders Only Doctor Unassigned, Ault [facility] 1.2.840.114 350.1.13.10 4.2.7.2.686 [id number] [facility] Notes Date/Time Note Provider Source 2024-08-30 13:07:11 Noted. Danyell Messer LVN [facility] 2024-08-30 12:39:16 Attempted to contact patient x3 to schedule New Ob appointment sooner than 09/18/24, unable to leave message for patient. Migel Ramirez [facility] 2024-08-29 16:10:01 Lmp 07/30 Pt scheduled 09/18 Erin Cooper [facility]
[2024-09-29 16:05] LABS: Absolute Eosinophils 0.2 K/uL (0-0.5); Absolute Lymphocytes (CBC) 1.5 K/uL (0.7-4.9); Absolute Monocytes 0.5 K/uL (0.1-1.3); Absolute Neutrophil 3.2 K/uL (1.8-8.0); Basophils % 0.6 % (0-1.3); Eosinophils % 3.3 % (0-4.4); Hematocrit 36.9 % (36.0-45.0); Hemoglobin 13.2 g/dL (12.0-15.0); Lymphocytes % 28.4 % (15.3-44.8); MCH 34.6 pg (27.0-35.0); MCHC 35.7 g/dL (32.0-36.0); MCV 96.9 fL (80-100); MPV 8.1 fL (7.6-11.3); Monocytes % 8.7 % (3.3-12.3); Platelets 243 thou/uL (152-406); RBC Red Blood Cell Count 3.81 M/uL (3.86-4.86); Red Cell Distribution Width 12.7 % (12.1-15.2)
[2024-09-29 16:33] LABS: Specific Gravity 1.016 (1.005-1.030); Sqamous Epithelial <5 /HPF (None Seen); Urine Bacteria None Seen /HPF (<20); Urine Bilirubin NEGATIVE (Negative); Urine Blood 2+ (Negative); Urine Clarity Turbid (Clear); Urine Color Light-Yellow (Yellow); Urine Culture Reflex Order REFLEXED; Urine Glucose NEGATIVE (Negative); Urine Ketones NEGATIVE (Negative); Urine Microscopic Reflex YN ORDER UMIC; Urine Mucus Slight /HPF (None Seen); Urine Nitrite NEGATIVE (Negative); Urine Protein NEGATIVE (Negative); Urine RBC <5 /HPF (None Seen); Urine Urobilinogen Normal (Normal); Urine WBC <5 /HPF (<5); Urine pH 7.5 (5.0-7.0)
[2024-09-29 16:34] LABS: Specific Gravity 1.016 (1.005-1.030)
[2024-09-29 16:38] LABS: Anion Gap 5.6 mEq/L (5.0-15.0); Potassium 3.6 mEq/L (3.5-5.1)
--- NOTE | 2024-09-29 17:27 | RAD REPORT ---
EXAMINATION: US Transvaginal OB COMPARISON: None. HISTORY: [facility] MAIN VAGINAL BLEEDING Bed Name: 11 TECHNIQUE: Real-time ultrasound was performed through the pelvis. A transvaginal scan was performed t o better visualize the intrauterine contents and adnexa. FINDINGS: There is a single intrauterine . No cardiac pulsations are noted. Yolk sac visualized, measuring 3 mm in diameter. Cervical internal os appears closed. There is no visible subchorionic hemorrhage. Both ovaries are not well visualized. There is no free fluid in the cul-de-sac. Measurements and Calculations: Olcott rump length 14.2mm, consistent with a sonographic age of 7 weeks, 5 days. The patient's LMP da deonte are 08/09/2024 IMPRESSION: Absence of cardiac pulsations, with closed internal cervical os, concerning for inevitable abor tion. Please correlate clinically. Single intrauterine , with a composite sonographic age of 7 weeks, 5 days. THIS REPORT CONTAINS FINDINGS THAT MAY BE CRITICAL TO PATIENT CARE. The findings were verbally commun icated via telephone to Russell Kuo M.D. on 09/29/2024 5:25 PM.
--- NOTE | 2024-09-29 17:46 | EDPHYS ---
Physician Documentation [facility] Jose Manuel Name: Deisy Jimenez Age: 24 yrs Sex: Female : 2000 Arrival Date: 09/29/2024 Time: 15:15 Bed 11 Private MD: ED Physician Daniel Lewis HPI: 09/29 15:57 This 24 yrs old Female presents to ER via Ambulatory with complaints of dr5 Vaginal Bleeding, + Preg <12wks. 15:57 The patient presents to the emergency department with vaginal bleeding, that is dr5 moderate, One episode of moderate vaginal bleeding that resolved.. The estimated gestational age is 8 weeks. 19:19 Patient is a 24-year-old female coming in with 1 episode of vaginal bleeding that dr5 occurred while resting on couch. Patient reports that the bleeding stopped after initial passage of blood and possible blood clots. Patient denies any pelvic pain or abdominal pain at this time. 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 - Infectious Disease History:: Denies. - Social history:: Smoking status: Patient denies any tobacco usage or history of. ROS: 15:57 Constitutional: as per hpi dr5 Exam: 15:57 Constitutional: This is a well developed, well nourished patient who is awake, alert, dr5 and in no acute distress. Head/Face: Normocephalic, atraumatic. Eyes: Pupils equal round and reactive to light, extra-ocular motions intact. Lids and lashes normal. Conjunctiva and sclera are non-icteric and not injected. Cornea within normal limits. Periorbital areas with no swelling, redness, or edema. Neck: Trachea midline, no thyromegaly or masses palpated, and no cervical lymphadenopathy. Supple, full range of motion without nuchal rigidity, or vertebral point tenderness. No Meningismus. Chest/axilla: Normal chest wall appearance and motion. Nontender with no deformity. No lesions are appreciated. Cardiovascular: Regular rate and rhythm with a normal S1 and S2. Normal PMI, no JVD. No pulse deficits. Respiratory: Lungs have equal breath sounds bilaterally, clear to auscultation. No rales, rhonchi or wheezes noted. No increased work of breathing, no retractions or nasal flaring. Back: No spinal tenderness. No costovertebral tenderness. Full range of motion. Skin: Warm, dry with normal turgor. Normal color with no rashes, no lesions, and no evidence of cellulitis. Neuro: Awake and alert, GCS 15, oriented to person, place, time, and situation. Cranial nerves II-XII grossly intact. Motor strength 5/5 in all extremities. Sensory grossly intact. Cerebellar exam normal. Normal gait. Vital Signs: 15:22 BP 127 / 86; Pulse 84; Resp 18; Temp 97.7(TE); Pulse Ox 98% on R/A; Weight 49.9 kg; ld1 Height 5 ft. 4 in. ; Pain 0/10; 17:57 BP 118 / 76; Pulse 81; Resp 17; Temp 97.9; Pulse Ox 99% ; me1 15:22 Body Mass Index 18.88 (49.90 kg, 162.56 cm) ld1 15:22 Pain Scale: Adult ld1 MDM: 15:30 Medical Screening Exam initiated dr5 19:19 Differential diagnosis: threatened Ab, inevitable Ab, complete Ab, retained Ab, septic dr5 Ab. Data reviewed: vital signs, nurses notes. Data reviewed: I have discussed the patient's presentation/case with the attending Emergency Department Physician;. Care significantly affected by the following chronic conditions: Kidney Stones. Care significantly affected by the following Social Determinants of Health: Poor access to healthcare and/or lack of insurance, Poor access to transportation, Problems related to employment. Counseling: I had a detailed discussion with the patient and/or guardian regarding the historical points, exam findings, and any diagnostic results supporting the discharge/admit diagnosis, the presence of at least one elevated blood pressure reading (>120/80) during this emergency department visit, lab results, radiology results, the need for outpatient follow up, for definitive care, a family practitioner, an OB/Gyne specialist, to return to the emergency department if symptoms worsen or persist or if there are any questions or concerns that arise at home. ED course: Ultrasound report was called to Dr. Kuo. Discussed case of pelvic rest and follow-up with OB this week. Patient likely has intermittent miscarriage. Strict ER precautions given for bleeding that results in hypotension, syncope, or lightheadedness. Recommended patient follow-up with primary care doctor this week as well as OB. I printed out ultrasound results as well as blood work and explained no heart tones noted on ultrasound. All questions answered. 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 09/29 15:47 Order name: Abo/rh Typing; Complete Time: 16:48 [facility] 09/29 15:47 Order name: Basic Metabolic Panel; Complete Time: 16:39 [facility] 09/29 15:47 Order name: CBC with Diff; Complete Time: 16:26 [facility] 09/29 15:47 Order name: Test, Urine; Complete Time: 16:39 [facility] 09/29 15:47 Order name: Quantitative Hcg; Complete Time: 16:39 [facility] 09/29 15:47 Order name: Urinalysis w/ reflexes; Complete Time: 16:43 [facility] 09/29 16:46 Order name: Urine Culture [facility] 09/29 15:47 Order name: US Transvaginal Ob; Complete Time: 17:42 [facility] 09/29 15:47 Order name: IV Saline Lock; Complete Time: 15:58 [facility] 09/29 15:47 Order name: Labs collected and sent; Complete Time: 15:58 [facility] 09/29 15:47 Order name: NPO; Complete Time: 15:48 dr5 Administered Medications: No medications were administered Disposition: 17:54 Co-signature as Attending Physician, Daniel Lewis MD I reviewed the patient's care rt provided by the Advanced Practice Provider and agree with the diagnosis and treatment plan. Disposition Summary: 09/29/24 17:46 Discharge Ordered Notes: Location: Home dr5 Condition: Stable dr5 Diagnosis - Threatened dr5 Followup: dr5 - With: Emergency Department - When: As needed - Reason: Worsening of condition Followup: dr5 - With: Private Physician - When: 1 - 2 days - Reason: Recheck today's complaints, Continuance of care, Re-evaluation by your physician Discharge Instructions: - Discharge Summary Sheet dr5 - Threatened Miscarriage dr5 Forms: - Medication Reconciliation Form dr5 - Patient Portal Instructions dr5 - Leadership Thank You Letter dr5 Signatures: Dispatcher [employer] [facility] Jeanie Rangel RN RN ld1 Daniel Lewis MD MD rt Marbin Ramires, COMMERCIAL MORTGAGE BROKER-C [employer] M[employer] BROKER-Cdr5 Corrections: (The following items were deleted from the chart) 15:47 15:47 Transvaginal Ob+US.RAD.BRZ ordered. EDMS EDMS
--- NOTE | 2024-09-29 17:46 | ER ---
Nurse's Notes [facility] Name: Deisy Jimenez Age: 24 yrs Sex: Female : 2000 Arrival Date: 09/29/2024 Time: 15:15 Bed 11 Private MD: Diagnosis: Threatened Presentation: 09/29 15:22 Chief complaint: Patient states: Pt reports vaginal bleeding prior to arrival - reports ld1 being 8 weeks . Denies abdominal cramping. No blood clots. Coronavirus screen: At this time, the client does not indicate any symptoms associated with coronavirus-19. Ebola Screen: No symptoms or risks identified at this time. Initial Sepsis Screen: Does the patient meet any 2 criteria? No. Patient's initial sepsis screen is negative. Does the patient have a suspected source of infection? No. Patient's initial sepsis screen is negative. Risk Assessment: Do you want to hurt yourself or someone else? Patient reports no desire to harm self or others. Onset of symptoms was September 29, 2024. 15:22 Method Of Arrival: Ambulatory ld1 15:22 Acuity: AHMET 3 ld1 Triage Assessment: 15:23 General: Appears in no apparent distress. comfortable, Behavior is calm, cooperative, ld1 appropriate for age. Pain: Denies pain. EENT: No signs and/or symptoms were reported regarding the EENT system. Neuro: Level of Consciousness is awake, alert, obeys commands, Oriented to person, place, time, situation. Cardiovascular: Capillary refill < 3 seconds Patient's skin is warm and dry. Respiratory: Airway is patent Respiratory effort is even, unlabored. GI: Abdomen is flat, non-distended. : Reports vaginal bleeding that is light flow. Derm: No signs and/or symptoms reported regarding the dermatologic system. Musculoskeletal: No signs and/or symptoms reported regarding the musculoskeletal system. 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 - Infectious Disease History:: Denies. - Social history:: Smoking status: Patient denies any tobacco usage or history of. Screenin:27 [facility] ED Fall Risk Assessment (Adult) History of falling in the last 3 months, me1 including since admission No falls in past 3 months (0 pts) Confusion or Disorientation No (0 pts) Intoxicated or Sedated No (0 pts) Impaired Gait No (0 pts) Mobility Assist Device Used No (0 pt) Altered Elimination No (0 pt) Score/Fall Risk Level 0 - 2 = Low Risk Maintained a safe environment, Provided non-skid footwear, Hourly rounding (assess needs \T\ fall precautionary measures) done. Abuse screen: Denies threats or abuse. Nutritional screening: No deficits noted. Tuberculosis screening: No symptoms or risk factors identified. Assessment: 15:27 General: Appears in no apparent distress. well groomed, well developed, well nourished, me1 Behavior is calm, cooperative, appropriate for age, Reports Pt reports vaginal bleeding prior to arrival - reports being 8 weeks . Denies abdominal cramping. No blood clots. Pain: Denies pain. Neuro: Level of Consciousness is awake, alert, obeys commands, Oriented to person, place, time, situation, Appropriate for age. Cardiovascular: Patient's skin is warm and dry. Respiratory: Airway is patent Respiratory effort is even, unlabored, Respiratory pattern is. GI: No signs and/or symptoms were reported involving the gastrointestinal system. : Reports vaginal bleeding that is spotty. EENT: No signs and/or symptoms were reported regarding the EENT system. Derm: Skin is intact, is healthy with good turgor, Skin is pink, warm \T\ dry. Musculoskeletal: No signs and/or symptoms reported regarding the musculoskeletal system. Vital Signs: 15:22 BP 127 / 86; Pulse 84; Resp 18; Temp 97.7(TE); Pulse Ox 98% on R/A; Weight 49.9 kg; ld1 Height 5 ft. 4 in. ; Pain 0/10; 17:57 BP 118 / 76; Pulse 81; Resp 17; Temp 97.9; Pulse Ox 99% ; me1 15:22 Body Mass Index 18.88 (49.90 kg, 162.56 cm) ld1 15:22 Pain Scale: Adult ld1 ED Course: 15:18 Patient arrived in ED. im 15:23 Triage completed. ld1 15:23 Arm band placed on right wrist. ld1 15:27 Eddleman, Leticia, RN is Primary Nurse. me1 15:27 Patient has correct armband on for positive identification. Bed in low position. Call me1 light in reach. Side rails up X2. Provided Education on: POC. Verbalized understanding.. 15:27 No provider procedures requiring assistance completed. me1 15:28 Daniel Lewis MD is Attending Physician. rt 15:28 [facility] 15:58 Abo/rh Typing Sent. me1 15:58 Basic Metabolic Panel Sent. me1 15:58 CBC with Diff Sent. me1 15:58 Quantitative Hcg Sent. me1 15:58 Initial lab(s) drawn, by nj, sent to lab. Inserted saline lock: 22 gauge in left me1 antecubital area, using aseptic technique. 16:11 US Transvaginal Ob In Process Unspecified. EDMS 16:26 Urine collected: clean catch specimen, clear. me1 17:58 IV discontinued, intact, bleeding controlled, No redness/swelling at site. Pressure me1 dressing applied. Administered Medications: No medications were administered Medication: 15:27 VIS not applicable for this client. me1 Outcome: 17:46 Discharge ordered by . dr5 17:58 Discharged to home ambulatory, me1 17:58 Condition: stable 17:58 Discharge instructions given to patient, Instructed on discharge instructions, follow up and referral plans. Demonstrated understanding of instructions, follow-up care, 17:59 Patient left the ED. me1 Signatures: Dispatcher [employer] Jeanie Marie RN RN ld1 Daniel Lewis MD MD rt Yael Goldsmith Leticia Randle, TEGAN RN me1 Marbin Ramires FNP-C COAL WE[employer]HER-Cdr5 Corrections: (The following items were deleted from the chart) 15:27 15:22 Chief complaint: Patient states: Pt reports vaginal bleeding prior to arrival - me1 reports being 8 weeks . Denies abdominal cramping. No blood clots. ld1
[2024-09-29 18:26] VITALS: BP 118/76; TEMP 97.9; O2SAT 99
== END 2024-09-29 17:59 | disposition home or self-care (01) ==
LOC: ER 15:15
DX: O20.0 Threatened abortion (principal)
CPT/HCPCS: 36415; 76817; 80048; 81001; 81025; 84702; 85025; 86900; 86901; 87086; 87088; 99284